=== PATIENT | male | born 1955 | race Caucasian/White ===

== ENCOUNTER → 2016-08-16 | Outpatient (CLI) | payer OTHER ==
[~2016-08-16] MED LIST: IPRA1AER2 INH; OXYC-57 PO; SYMIN160 INH
[2016-08-16 17:40] LABS: BASO % 0.8 %; BASO ABS # 0.08 K/uL (0-0.2); COMPLETE YES; EOS % 1.7 %; HEMATOCRIT 46.5 % (42-52); IG% 0.1 %; LYMPH % 29.9 %; LYMPH ABS # 3.08 K/uL (1.2-3.4); MEAN CELL VOLUME 90.6 fL (80-100); MEAN CORPUSCULAR HGB CONC 35.3 g/dl (32-36); MEAN PLATELET VOLUME 9.6 fL (7.4-10.4); MONO % 9.6 %; NEUT % 57.9 %; PLATELET COUNT 295 K/uL (130-400); RED BLOOD COUNT 5.13 M/uL (4.7-6.1); WHITE BLOOD COUNT 10.31 K/uL (4.8-10.8)
[2016-08-16 17:53] LABS: BLOOD UREA NITROGEN 12 mg/dl (7-18); BUN/CREATININE RATIO 13.6 (10-20); CALCIUM 9.8 mg/dl (8.5-10.1); CARBON DIOXIDE 22 mmol/L (21-32); CHLORIDE 106 mmol/L (98-107); CREATININE 0.91 mg/dl (0.60-1.40); GLUCOSE 79 mg/dl (70-99); POTASSIUM 4.2 mmol/L (3.5-5.1); SODIUM 140 mmol/L (136-145)
== END | disposition home or self-care (01) ==
LOC: C.LABBFT 14:38
PROVIDERS: ATTEND Nurse Practitioner
DX: R59.0 Localized enlarged lymph nodes (principal)

== ENCOUNTER → 2016-08-22 | Outpatient (CLI) | payer OTHER ==
--- NOTE | 2016-08-22 12:27 | DIAGNOSTIC IMAGING REPORT ---
ULTRASOUND SOFT TISSUES NECK CLINICAL HISTORY: Left-sided cervical lymphadenopathy. COMPARISON STUDY: No priors. FINDINGS: Real-time, grayscale, and color flow sonography of the soft tissues of the left neck is performed at the indicated site of interest. No mass or fluid collection is seen. There are scattered benign-appearing cervical lymph nodes. These not pathologically enlarged by size criteria and maintain a normal fatty hilum. The largest node measures 0.9 x 0.3 x 0.7 cm. IMPRESSION: Scattered benign-appearing left cervical lymph nodes are incidentally noted. These are not pathologically enlarged by size criteria and are too small for fine-needle aspiration. Clinical follow-up will be required. Electronically signed by: Roberto Butler M.D. 08/22/2016 12:26 PM Dictated Date/Time: 08/22/2016 12:24 PM
== END | disposition home or self-care (01) ==
LOC: C.ULTR 11:48
PROVIDERS: ATTEND Internal Medicine
DX: R59.0 Localized enlarged lymph nodes (principal)

== ENCOUNTER → 2016-11-01 | Day surgery (SDC) | payer OTHER ==
[2016-10-19 13:25] VITALS: Ht 170.2 cm; Wt 75.5 kg
[~2016-11-01] VITALS: Ht 170.2 cm; Wt 75.5 kg
[~2016-11-01] MED LIST changes: +ATROPINE SULFATE 0.1 MG/ML 5ML SYR IV PRN; +EpHEDrine SULFATE INJ 50 MG/ML AMP IV PRN; +LIDOCAINE HCL 2% 2 ML VIAL (20MG/ML) ONE; +MIDAZOLAM HCL 1 MG/ML 2ML VIAL ONE; +ONDANSETRON INJ 2 MG/ML 2 ML VIAL ONE; -OXYC-57 PO; +PROPOFOL IV EMULSION 10 MG/ML 20 ML VIAL IV ONE; +SODIUM CHLORIDE 0.9% 500ML 500 ML IV ONE
--- NOTE | 2016-11-01 14:14 | Endo History and Physical ---
History & Physical Date of Service: Nov 01, 2016. Chief Complaint: Screening colon Referring Physician: Dr. Layo Khan History of Present Illness 61 yo CM who presents for screening colonoscopy. Past Surgical History Hx Cardiac Surgery: No Hx Internal Defibrillator: No Hx Pacemaker: No Hx Abdominal Surgery: Yes (HERNIA REPAIR X2) Hx of Implantable Prosthesis: No Hx Post-Op Nausea and Vomiting: No Hx Cancer Surgery: No Hx Thoracic Surgery: No Hx Orthopedic: No Hx Urinary Tract Surgery: No Family History None Social History Smoking Status: Current Every Day Smoker Hx Substance Use: No Hx Alcohol Use: Yes (QUIT 7 YEARS AGO) Allergies Coded Allergies: Atorvastatin (Verified Allergy, Unknown, RASH, 10/19/16) Current Medications Reported Home Medications Medications Dose Route/Sig Max Daily Dose Days Date Category Combivent Respimat (Ipratropium-Albuterol) 1 Aer Aer 1 Puffs INH QID 10/19/16 Reported Symbicort 160/4.5 Inhaler (Budesonide/Formoterol Fumarate) Aero 2 Puffs INH BID 04/23/16 Reported Vital Signs Weight (Kilograms): 75.45 Height (Feet): 5 Height (Inches): 7 Date Time Temp Pulse Resp B/P Pulse Ox O2 Delivery O2 Flow Rate FiO2 11/01/16 13:58 36.7 95 20 182/90 98 Room Air Physical Exam General Appearance: WD/WN, no apparent distress Respiratory/Chest: Auscultation: breath sounds normal Cardiovascular: Heart Auscultation: RRR Abdomen: Bowel Sounds: normal Inspection & Palpation: soft, non-distended, no tenderness, guarding & rebound Assessment and Plan Assessment: 61 yo CM who presents for screening colonoscopy. Plan: Proceed with colonoscopy.
--- NOTE | 2016-11-01 15:27 | Discharge Instructions ---
Endoscopy Patient Instructions Date / Procedure(s) Performed Nov 01, 2016. Colonoscopy Allergy Information Coded Allergies: Atorvastatin (Verified Allergy, Unknown, RASH, 10/19/16) Discharge Date / Findings Nov 01, 2016. Colon polyps Rectal polyp Diverticulosis Internal hemorrhoids Medication Instructions OK to resume all medications today as prescribed Reported Home Medications Medications Dose Route/Sig Max Daily Dose Days Date Category Combivent Respimat (Ipratropium-Albuterol) 1 Aer Aer 1 Puffs INH QID 10/19/16 Reported Symbicort 160/4.5 Inhaler (Budesonide/Formoterol Fumarate) Aero 2 Puffs INH BID 04/23/16 Reported Provider Instructions Activity Restrictions - No exercising or heavy lifting for 24 hours. - Do not drink alcohol the day of the procedure. - Do not drive a car or operate machinery until the day after the procedure. - Do not make any important decisions or sign important papers in 24 hours after the procedure. Following Day: - Return to full activity which may include returning to work/school. Diet Start your diet with liquids and light foods (jello, soup, juice, toast). Then eat your usual diet if not nauseated. Treatment For Common After Affects For mild abdominal pain, bloating, or excessive gas: - Rest - Eat lightly - Lie on right side Follow-Up Information Follow-up with Dr. Layo Khan as scheduled Anesthesia Information What You Should Know You have had a procedure that required some medicine to reduce anxiety and discomfort. This treatment is called moderate sedation. After receiving the treatment, you may be sleepy, but you will be able to breathe on your own. The effects of the treatment may last for several hours. Follow these instructions along with Activity/Diet recommendations noted above: * Do NOT do anything where dizziness or clumsiness would be dangerous. * Rest quietly at home today, then you can be up and about tomorrow. * Have a responsible person stay with you the rest of today. * You may have had an I.V. today. If so, you may take the dressing off later today. Recommendations Call your doctor if: * Trouble breathing * Continuous vomiting for more than 24 hours * Temperature above 101 degrees * Severe abdominal pain or bloating * Pain not relieved by pain medicine ordered * There is increased drainage or redness from any incision * A large amount of rectal bleeding greater than 2-3 tablespoons. (If you had a polyp/s removed or have hemorrhoids, a small amount of blood - from the rectum is to be expected.) * You have any unanswered questions or concerns. IN THE EVENT OF A SERIOUS EMERGENCY, GO TO THE NEAREST EMERGENCY ROOM Your discharge instructions were prepared by provider Jarvis Centeno. Patient Instructions Signature Page Kraig Omalley Patient (or Guardian) Signature/Date: I have read and understand the instructions given to me by my caregivers. Caregiver/RN/Doctor Signature/Date: The above-named patient and/or guardian has received patient instructions on this date. + Original Patient Signature Page (only) stays with chart. Please make copy for patient.
--- NOTE | 2016-11-01 15:32 | GI REPORT ---
Procedure Date: 11/01/2016 2:30 PM Procedure: Colonoscopy Indications: Screening for colorectal malignant neoplasm Medicines: Monitored Anesthesia Care Complications: No immediate complications. Estimated Blood Loss: Estimated blood loss: none. Procedure: Pre-Anesthesia Assessment: - Prior to the procedure, a History and Physical was performed, and patient medications and allergies were reviewed. The patient's tolerance of previous anesthesia was also reviewed. The risks and benefits of the procedure and the sedation options and risks were discussed with the patient. All questions were answered, and informed consent was obtained. Prior Anticoagulants: The patient has taken no previous anticoagulant or antiplatelet agents. ASA Grade Assessment: III - A patient with severe systemic disease. After reviewing the risks and benefits, the patient was deemed in satisfactory condition to undergo the procedure. After I obtained informed consent, the scope was passed under direct vision. Throughout the procedure, the patient's blood pressure, pulse, and oxygen saturations were monitored continuously. The scope was introduced through the anus and advanced to the terminal ileum. The colonoscopy was performed without difficulty. The patient tolerated the procedure well. The quality of the bowel preparation was good. The terminal ileum, ileocecal valve, appendiceal orifice, and rectum were photographed. Findings: Five sessile polyps were found in the rectum, in the sigmoid colon and in the transverse colon. The polyps were 5 to 8 mm in size. These polyps were removed with a hot snare. Resection and retrieval were complete. Multiple small-mouthed diverticula were found in the sigmoid colon. Non-bleeding internal hemorrhoids were found during retroflexion. The hemorrhoids were small. Impression: - Five 5 to 8 mm polyps in the rectum, in the sigmoid colon and in the transverse colon, removed with a hot snare. Resected and retrieved. - Diverticulosis in the sigmoid colon. - Non-bleeding internal hemorrhoids. Recommendation: - Resume previous diet. - Continue present medications. - Repeat colonoscopy for surveillance based on pathology results. - Return to primary care physician as previously scheduled. Jarvis Centeno DO 11/01/2016 3:31:31 PM This report has been signed electronically. Note Initiated On: 11/01/2016 2:30 PM I attest to the content of the Intraoperative Record and orders documented therein, exceptions below
--- NOTE | 2016-11-01 15:43 | Anesthesiology Progress Note ---
Anesthesia Post Op Note Date & Time Nov 01, 2016 at 15:42 Vital Signs Pain Intensity: 0 Vital Signs Past 12 Hours Date Time Temp Pulse Resp B/P Pulse Ox O2 Delivery O2 Flow Rate FiO2 11/01/16 15:30 88 16 115/74 95 Room Air 11/01/16 13:58 36.7 95 20 182/90 98 Room Air Notes Mental Status: alert / awake / arousable, participated in evaluation Pt Amnestic to Procedure: Yes Nausea / Vomiting: adequately controlled Pain: adequately controlled Airway Patency, RR, SpO2: stable & adequate BP & HR: stable & adequate Hydration State: stable & adequate Anesthetic Complications: no major complications apparent
[2016-11-01 16:00] VITALS: BP 121/80; PULSE 90; O2SAT 95
== END | disposition home or self-care (01) ==
LOC: C.GI 13:41
PROVIDERS: ATTEND Internal Medicine
DX: Z12.11 Encounter for screening for malignant neoplasm of colon (principal); D12.5 Benign neoplasm of sigmoid colon; K62.1 Rectal polyp; K57.30 Diverticulosis of large intestine without perforation or abscess without bleeding; K64.8 Other hemorrhoids; Z98.890 Other specified postprocedural states; Z87.891 Personal history of nicotine dependence; Z88.8 Allergy status to other drugs, medicaments and biological substances

== ENCOUNTER → 2017-04-09 | Outpatient (CLI) | payer OTHER ==
[~2017-04-09] MED LIST changes: -ATROPINE SULFATE 0.1 MG/ML 5ML SYR IV PRN; -EpHEDrine SULFATE INJ 50 MG/ML AMP IV PRN; -LIDOCAINE HCL 2% 2 ML VIAL (20MG/ML) ONE; -MIDAZOLAM HCL 1 MG/ML 2ML VIAL ONE; -ONDANSETRON INJ 2 MG/ML 2 ML VIAL ONE; -PROPOFOL IV EMULSION 10 MG/ML 20 ML VIAL IV ONE; -SODIUM CHLORIDE 0.9% 500ML 500 ML IV ONE
[2017-04-09 18:14] LABS: CHOLESTEROL/HDL RATIO 3.8; PROSTATE SPECIFIC ANTIGEN 2.65 ng/ml (0.000-4.000)
== END | disposition home or self-care (01) ==
LOC: C.LABBFT 15:06
PROVIDERS: ATTEND Internal Medicine
DX: Z12.5 Encounter for screening for malignant neoplasm of prostate (principal); E78.5 Hyperlipidemia, unspecified

== ENCOUNTER → 2017-04-17 | Outpatient (CLI) | payer OTHER ==
--- NOTE | 2017-04-17 12:28 | DIAGNOSTIC IMAGING REPORT ---
CT LUNG SCREENING, LOW DOSE WITH COMPUTER-AIDED DETECTION (CAD) CLINICAL HISTORY: Smoking history. COMPARISON STUDY: Chest CT 12/21/2015. CT DOSE: 71.37 mGycm TECHNIQUE: Low-dose helical CT was acquired without intravenous contrast from lung apices to bases and reconstructed at 2.5 mm every 2 mm. CAD was utilized for this study. A dose lowering technique was utilized adhering to the principles of ALARA. FINDINGS: The central airways are patent. No pleural effusions. No pneumothorax. Mild to moderate emphysema persists. Mild groundglass densities within the lung bases posteriorly favor mild dependent change. No suspicious pulmonary nodules. The visualized liver and spleen are unremarkable. Partially visualized 7.2 cm hypodense lesion within the upper pole the right kidney is again noted. This favors a cyst. This is not significantly changed. No mediastinal or hilar lymphadenopathy. Normal caliber thoracic aorta. Moderate calcified plaque within the coronary arteries. IMPRESSION: 1. No suspicious pulmonary nodules. 2. Mild to moderate emphysema. 3. Moderate calcified plaque within the coronary arteries. CAD FINDINGS: Overall Lung RADS Category: 1 Lung RADS Management Recommendation: Lung-RADS 1: Continue annual screening in 12 months. Lung RADS Follow Up Date: 2018-04-17 Lung RADS Nodule ID: Electronically signed by: Lev Campos M.D. 04/17/2017 12:26 PM Dictated Date/Time: 04/17/2017 12:21 PM
== END | disposition home or self-care (01) ==
LOC: C.CTS 12:09
PROVIDERS: ATTEND Internal Medicine
DX: Z87.891 Personal history of nicotine dependence (principal); J43.9 Emphysema, unspecified; I25.10 Atherosclerotic heart disease of native coronary artery without angina pectoris

== ENCOUNTER → 2017-07-10 | Outpatient (CLI) | payer OTHER ==
--- NOTE | 2017-07-10 10:23 | DIAGNOSTIC IMAGING REPORT ---
LUMBAR SPINE MRI HISTORY: M54.16 Lumbar [id number] TECHNIQUE: Multiplanar multisequence MRI of the lumbar spine was performed without the use of contrast. COMPARISON: None. FINDINGS: For the purpose of the report the L5-S1 disc space will be located on axial image 23 of 26. Mild anterior wedging within the superior endplate of T12 with small focal area of edema within the anterior superior corner. This could related to a small Schmorl's node or small superior endplate compression fracture. No adjacent paravertebral edema. No fracture or subluxation within the lumbar spine. Moderate to space narrowing at L1-L2. Mild disc space narrowing at L3-L4. Severe disc space narrowing at L2-L3, L4-L5, and L5-S1. The conus to right at the L1 level. Mild endplate signal abnormality within the lumbar spine is likely due to the long-standing degenerative change. There is mild marrow heterogeneity which is likely age-related. Small cortical and peripelvic cysts within the right kidney. There are are also a few small peripelvic cysts within the left kidney. L1-L2: Small broad-based posterior disc bulge without significant central canal or neural foraminal narrowing. L2-L3: Small broad-based posterior disc bulge asymmetric to the left mild central canal and mild left-sided neural foraminal narrowing. L3-L4: Small broad-based posterior disc bulge without significant central canal narrowing. There is mild left-sided neural foraminal narrowing. L4-L5: No significant central canal or neural foraminal narrowing. Tiny broad-based posterior disc bulge. L5-S1: Small broad-based posterior disc bulge without significant central canal or neural foraminal narrowing. IMPRESSION: 1. Multilevel lumbar spondylosis as described above most pronounced at the L2-L3 level where there is a broad-based posterior disc bulge resulting in mild central canal and mild left-sided neural foraminal narrowing. 2. Mild superior endplate anterior wedging at T12 with a small focal area of endplate edema superiorly. This is likely due to the adjacent Schmorl's node. However, a small compression fracture could also have a similar appearance. 3. Diffuse marrow heterogeneity which may be age-related. Electronically signed by: Lev Campos M.D. 07/10/2017 10:22 AM Dictated Date/Time: 07/10/2017 10:13 AM
== END | disposition home or self-care (01) ==
LOC: C.MRI 09:29
PROVIDERS: ATTEND Internal Medicine
DX: M47.896 Other spondylosis, lumbar region (principal); M51.16 Intervertebral disc disorders with radiculopathy, lumbar region

== ENCOUNTER 2019-05-22 20:58 | Inpatient (IN) ==
[2019-05-22] MEDS ORDERED: DiphenhydrAMINE HCL 50 MG/ML VIAL IV STA (21:37)
[2019-05-22] MEDS ORDERED: SODIUM CHLORIDE 0.9% 1000ML 1,000 ML IV ONE (21:37)
[2019-05-22] MEDS ORDERED: PROCHLORPERAZINE 2 ML IV ONE (21:37)
[2019-05-22] MEDS ORDERED: ACETAMINOPHEN 1,000 MG/100 ML VIAL IV STA (21:37)
[2019-05-22] MEDS ORDERED: FAMOTIDINE 20MG IV PUSH 20 MG/5 ML SYR IV STA (21:39)
[2019-05-22 21:58] LABS: Basophils # (auto) 0.02 K/uL (0-0.2); Basophils % (auto) 0.1 %; Hematocrit (blood only) 46.4 % (42-52); Hemoglobin 16.5 g/dL (14.0-18.0); Immature Granulocytes # (auto) 0.06 K/uL (0.00-0.02); Immature Granulocytes % (auto) 0.3 %; Lymphocytes # (auto) 1.24 K/uL (1.2-3.4); Lymphocytes % (auto) 6.3 %; Mean Corpuscular Hemoglobin 32.9 pg (25-34); Mean Corpuscular Hgb Conc 35.6 g/dL (32-36); Mean Corpuscular Volume 92.6 fL (80-100); Mean Platelet Volume 9.2 fL (7.4-10.4); Monocytes # (auto) 1.94 K/uL (0.11-0.59); Monocytes % (auto) 9.9 %; Neutrophils # (auto) 16.37 K/uL (1.4-6.5); Neutrophils % (auto) 83.4 %; Platelet Count 268 K/uL (130-400); RDW Coefficient of Variation 13.3 % (11.5-14.5); RDW Standard Deviation 44.9 fL (36.4-46.3); Red Blood Count 5.01 M/uL (4.7-6.1); White Blood Count 19.63 K/uL (4.8-10.8)
[2019-05-22 22:14] LABS: Albumin Level 3.8 gm/dl (3.4-5.0); BUN Creatinine Ratio 28.1 (10-20); Calcium 9.4 mg/dl (8.5-10.1); Est GFR (African American) 64.4; Est GFR (Non-African American) 55.6; Magnesium 2.4 mg/dl (1.8-2.4); Potassium 3.9 mmol/L (3.5-5.1)
[2019-05-22 22:18] LABS: Bilirubin Direct 0.3 mg/dl (0-0.2); Bilirubin,Total 1.5 mg/dl (0.2-1); Globulin 3.6 gm/dl (2.5-4.0); Phosphorus 4.2 mg/dl (2.5-4.9); Total Protein 7.4 gm/dl (6.4-8.2)
[2019-05-22] MEDS ORDERED: IOVERSOL 100ml IV PRN (22:39)
--- NOTE | 2019-05-22 22:57 | CT Scan Report ---
CT OF THE ABDOMEN AND PELVIS WITH CONTRAST CLINICAL HISTORY: Abdominal pain, nausea and vomiting. History of inguinal hernia. COMPARISON STUDY: Abdominal ultrasound August 30, 2018. TECHNIQUE: Following IV administration of 93 mL of Optiray-320, axial images of the abdomen and pelvi s were obtained from the lung bases to the proximal femurs. Images were reviewed in the axial, sagitt al, and coronal planes. IV contrast was administered without complication. Automated exposure contro l was utilized for the study. A dose lowering technique was utilized adhering to the principles of A JAMAL. CT DOSE: 319.21 mGy.cm FINDINGS: Several hepatic cysts are noted. Note is made of bilateral renal cortical and parapelvic cy sts. There is no hydronephrosis. The spleen, adrenal glands and pancreas are unremarkable. There is n o biliary or pancreatic ductal dilatation. No peripancreatic or pericholecystic infiltration is prese nt. The proximal to mid small bowel is moderately dilated and fluid-filled. A loop of small bowel wit hin a left inguinal hernia results in a bowel obstruction. The small bowel distal to the hernia is de compressed. No pneumatosis, free air or portal venous gas is present. The appendix is normal. Extensi ve colonic diverticulosis is noted without evidence for acute diverticulitis. There are no suspicious osseous lesions. The prostate is moderately enlarged. Trace ascites within the left inguinal canal i s present. IMPRESSION: 1. Moderate grade small bowel obstruction due to a left inguinal hernia which contains a loop of smal l bowel. Trace ascites within the left inguinal canal. No pneumatosis, free air or portal venous gas. 2. Colonic diverticulosis without evidence for acute diverticulitis. 3. Renal and hepatic cysts. Electronically signed by: Andrey Pierre M.D. 05/22/2019 10:55 PM
[2019-05-22] MEDS ORDERED: PIPERACILLIN/TAZOBACTAM 4.5 GM/120 ML BAG IV ONE (23:30)
[2019-05-22] MEDS ORDERED: PIPERACILL/TAZOBAC CONSULT ACTIVE PRN (23:30)
--- NOTE | 2019-05-23 00:31 | Surgery Consultation ---
Date of Consultation May 23, 2019 Assessment & Plan (1) Vomiting: pt is a 63 year-old male who presents to ER with 2 days history nausea and vomiting, with left inguinal hernia, now the left inguinal hernia is reduced by ER attending, IMP: nausea, vomiting, left inguinal hernia caused SBO, Plan, base on high WBC 19,000, could not R/O ischemic bowel, but pt has no abdominal pain now, admit to hospital, NPO, IV fluid, repeat labs in am, D/W possible repair left inguinal hernia tomorrow, pt and his agree with the plan, I answered all questions, (2) Left inguinal hernia: History of Present Illness History of Present Illness CC: nausea, vomiting for 2 days HPI: pt is a 63 year-old male who presents to ER with 2 days history nausea and vomiting, left inguinal pain with bulging, pt has been left inguinal hernia for many years, now pt's left inguinal hernia was reduced by ER attending. pt denies fever, no abdominal pain now, last BM 2 days ago, pt had open repair right inguinal hernia 3 years ago, pt is heavy smoking, 2 packs/day, with COPD. Allergies Allergy/AdvReac Type Severity Reaction Status Date / Time atorvastatin Allergy Unknown RASH Verified 05/22/19 22:53 Home Medications Home Medications Medication Instructions Recorded Confirmed Type budesonide-formoterol HFA 160 0 puffs INHALATION BID #1 gm 05/22/19 05/22/19 History mcg-4.5 mcg/actuation aerosol inhaler ipratropium 20 mcg-albuterol 100 0 puffs INHALATION UD #4 gm 05/22/19 05/22/19 History mcg/actuation mist for inhalation rosuvastatin [Crestor] 5 mg PO DAILY 05/22/19 05/22/19 History Patient History Surgical History History of ear surgery History of inguinal hernia repair History of umbilical hernia repair incarcerated umbilical hernia repair for person over age 5 Family History Mother Breast cancer Unknown Breast cancer Brother Arthritis Father Alcohol abuse Cancer Sister Cancer Social History Feels Safe at Home: Yes Smoking Status: Current every day smoker Cigarettes Per Day: 20 ; Second Hand Exposure: Yes ; Review of Systems Review of Systems: All systems reviewed & are unremarkable except as noted in HPI & below Constitutional: as per Subjective / HPI Ear, Nose, Mouth, Throat: as per Subjective / HPI Respiratory: as per Subjective / HPI smoking, 2 packs/day, COPD Cardiovascular: as per Subjective / HPI Additional Comments: pt denies chest pain Gastrointestinal: as per Subjective / HPI Genitourinary: + as per Subjective / HPI Musculoskeletal: as per Subjective / HPI Integumentary: as per Subjective / HPI Neurologic: as per Subjective / HPI Psychiatric: as per Subjective / HPI Endocrine: as per Subjective / HPI Hematologic / Lymphatic: as per Subjective / HPI Physical Exam Constitutional: WD/WN, vitals as above well developed and well nourished ENMT: external ear and nose normal, oropharynx normal Neck: trachea midline, no thyromegaly Respiratory: normal respiratory effort, lungs clear to auscultation normal respiratory effort Cardiovascular: RRR, no murmur, no edema Rate/Rhythm: regular rate and regular rhythm Heart Sounds: normal S1 and normal S2 Gastrointestinal (Abdomen): normal bowel sounds, soft, nontender, no hepatosplenomegaly no bulging on bilt inguinal area, mild tenderness at left inguinal area, BS +, no tenderness at abdomen, no distend, no rebound pain, no rigid, Musculoskeletal: no cyanosis or clubbing, extremities motor strength 5/5 Skin: no rashes, warm and dry Neurologic: patellar DTR's 2+ bilat, sensation intact Psychiatric: A+Ox3, euthymic affect Orientation: alert and oriented x 3 Results & Data Vital Signs (Past 12 Hours) Vital Signs Temp Pulse Pulse Resp BP BP Pulse Ox 05/22/19 23:30 79 18 119/70 94 05/22/19 21:00 36.8 C 113 H 18 124/86 94 Laboratory Results Abnormal lab results 05/22/19 05/22/19 Range/Units 21:51 21:51 WBC 19.63 H (4.8-10.8) K/uL Immature Gran # (Auto) 0.06 H (0.00-0.02) K/uL Neut # (Auto) 16.37 H (1.4-6.5) K/uL Mclean # (Auto) 1.94 H (0.11-0.59) K/uL BUN 38 H (7-18) mg/dl BUN/Creatinine Ratio 28.1 H (10-20) Glucose 117 H (70-99) mg/dl Total Bilirubin 1.5 H (0.2-1) mg/dl Direct Bilirubin 0.3 H (0-0.2) mg/dl Diagnostic Findings CT lung screening (low dose) CLINICAL HISTORY: screening tobacco use. COMPARISON STUDY: Lung screening chest CT 05/02/2018. CT DOSE: 89.84 mGy.cm TECHNIQUE: Low-dose helical CT was acquired without intravenous contrast from lung apices to bases and reconstructed at 2.5 mm every 2 mm. Automated exposure control was utilized for the study. A dose lowering technique was utilized adhering to the principles of ALARA. FINDINGS: Thyroid: Imaged portions of the thyroid gland are normal in appearance. Thoracic aorta: The ascending thoracic aorta measures 38 mm. Heart: The heart is normal in size. There are mild to moderate coronary artery calcifications. Lungs and pleural spaces: There is pulmonary emphysema. There is no focal consolidation. There are no suspicious pulmonary nodules. Mediastinum: There is no mediastinal lymphadenopathy. Sena: There is no evidence of pathologic hilar adenopathy given the limitations of a noncontrast study Axilla: There is no evidence of pathologic axillary lymphadenopathy Upper abdomen: There is an 8 cm right renal cyst. Skeletal structures: There are no lytic or blastic osseous lesions. IMPRESSION: 1. Pulmonary emphysema 2. No suspicious pulmonary masses 3. Overall, no significant change compared to the prior study. CT OF THE ABDOMEN AND PELVIS WITH CONTRAST CLINICAL HISTORY: Abdominal pain, nausea and vomiting. History of inguinal hernia. COMPARISON STUDY: Abdominal ultrasound August 30, 2018. TECHNIQUE: Following IV administration of 93 mL of Optiray-320, axial images of the abdomen and pelvis were obtained from the lung bases to the proximal femurs. Images were reviewed in the axial, sagittal, and coronal planes. IV contrast was administered without complication. Automated exposure control was utilized for the study. A dose lowering technique was utilized adhering to the principles of ALARA. CT DOSE: 319.21 mGy.cm FINDINGS: Several hepatic cysts are noted. Note is made of bilateral renal cortical and parapelvic cysts. There is no hydronephrosis. The spleen, adrenal glands and pancreas are unremarkable. There is no biliary or pancreatic ductal dilatation. No peripancreatic or pericholecystic infiltration is present. The proximal to mid small bowel is moderately dilated and fluid-filled. A loop of small bowel within a left inguinal hernia results in a bowel obstruction. The small bowel distal to the hernia is decompressed. No pneumatosis, free air or portal venous gas is present. The appendix is normal. Extensive colonic diverticulosis is noted without evidence for acute diverticulitis. There are no suspicious osseous lesions. The prostate is moderately enlarged. Trace ascites within the left inguinal canal is present. IMPRESSION: 1. Moderate grade small bowel obstruction due to a left inguinal hernia which contains a loop of small bowel. Trace ascites within the left inguinal canal. No pneumatosis, free air or portal venous gas. 2. Colonic diverticulosis without evidence for acute diverticulitis. 3. Renal and hepatic cysts.
--- NOTE | 2019-05-23 00:31 | Emergency Department Note ---
Entered by Andrea Chen acting as a scribe for Loc Márquez MD History of Present Illness General Chief complaint: Illness Stated complaint: FOOD POISIONING Time Seen by Provider: 05/22/19 21:26 Source: patient and other (roommate) Limitations: no limitations History of Present Illness Onset (ago): day(s) 2 Location: abdomen Pain Consistency: + constant Maximum Pain Intensity: 10 Quality: + constant Associated symptoms: + nausea/vomiting The patient is a 63 year old male who presents to the Emergency Room with complaints of constant abdominal pain starting 2 days ago. The patient states he has been having nausea and vomiting for the past 2 days. He states he had hernia surgery on his abdomen before. The patient notes he lost 30 pounds in the past couple months. He states his doctor knows that he has lost weight but they are not sure why. The patient states he is a smoker. Home Medications Home Medications Medication Instructions Recorded Confirmed Type budesonide-formoterol HFA 160 0 puffs INHALATION BID #1 gm 05/22/19 05/22/19 History mcg-4.5 mcg/actuation aerosol inhaler ipratropium 20 mcg-albuterol 100 0 puffs INHALATION UD #4 gm 05/22/19 05/22/19 History mcg/actuation mist for inhalation rosuvastatin [Crestor] 5 mg PO DAILY 05/22/19 05/22/19 History Allergies Allergy/AdvReac Type Severity Reaction Status Date / Time atorvastatin Allergy Unknown RASH Verified 05/22/19 22:53 Past Med/Surg History Surgical History History of ear surgery History of inguinal hernia repair History of umbilical hernia repair incarcerated umbilical hernia repair for person over age 5 Family History Mother Breast cancer Unknown Breast cancer Brother Arthritis Father Alcohol abuse Cancer Sister Cancer Social History Preferred Language: Georgian Communication Ability: Effective Sprayer Operator Required: No Beliefs That Will Affect Care: None Current Living Situation: Other Current Living Situation Comment: Roommate Other Information That Helps Us Care for You: No Feels Safe at Home: Yes Safety Concerns: Feels Safe At This Time Smoking Status: Current every day smoker Tobacco Type: cigarettes ; Cigarettes Per Day: 8 ; Do You Dip or Chew Tobacco: No ; Second Hand Exposure: Yes ; Tobacco Cessation Education Requested by Patient: No Hx Alcohol Use: No Hx Substance Use: No Review of Systems See HPI for pertinent positives & negatives. and A total of 10 systems reviewed and were otherwise negative Physical Exam Vital Signs Vital Signs - 24 hr 05/22/19 21:00 05/22/19 23:30 Temperature 36.8 C Temperature Source Oral Sepsis Recent Fever Within 48 Hours No Sepsis Action Taken by Nursing No Action Required Pulse Rate 113 H Pulse Rate [Apical] 79 Pulse Rhythm Regular Pulse Strength Normal Respiratory Rate 18 18 Respiratory Effort / Characteristics Non-Labored Spontaneous Respiratory Depth Normal Respiratory Pattern Regular Blood Pressure 124/86 Blood Pressure [Right Arm] 119/70 Blood Pressure Mean 98 Blood Pressure Mean [Right Arm] 86 Blood Pressure Position Sitting Pulse Oximetry 94 94 Oxygen Delivery Method Room Air Room Air GENERAL: Awake, alert, uncomfortable-appearing, in no acute distress HENT: Normocephalic, atraumatic. Oropharynx with dry mucous membranes and otherwise unremarkable. EYES: Normal conjunctiva. Sclera non-icteric. NECK: Supple. No nuchal rigidity. FROM. No JVD. RESPIRATORY: Clear to auscultation bilaterally. CARDIAC: Regular rate, normal rhythm. Extremities warm and well perfused. Pulses equal. ABDOMEN: Soft, non-distended. No rebound or guarding. Mild periumbilical tenderness. Mild left inguinal hernia that is soft but mildly tender. RECTAL: Deferred. MUSCULOSKELETAL: Chest examination reveals no tenderness. The back is symmetrical on inspection without obvious abnormality. There is no CVA tenderness to palpation. No joint edema. LOWER EXTREMITIES: Calves are equal size bilaterally and non-tender. No edema. No discoloration. NEURO: Normal sensorium. No sensory or motor deficits noted. SKIN: No rash or jaundice noted. Course 2134: The patient was evaluated in room C12B, and a complete history and physical examination were performed. 5: I spoke with Dr. Castillo - General Surgery. He states he will come see the patient. Administered Medications Lactated Ringer's (Lr) 1,000 mls @ 100 mls/hr IV .Q10H VIDA Stop: 06/22/19 00:59 Last Admin: 05/23/19 02:13 Dose: 100 mls/hr Documented by: [id number] Ioversol (Optiray 320 100ml) 93 ml IV ONCE PRN PRN Reason: Interaction Checking Stop: 05/26/19 22:38 Last Admin: 05/22/19 22:39 Dose: 93 ml Documented by: [id number] Discontinued Medications Diphenhydramine HCl (Benadryl) 25 mg IV NOW STA Stop: 05/22/19 21:38 Last Admin: 05/22/19 21:56 Dose: 25 mg Documented by: [id number] Acetaminophen (Ofirmev) 1,000 mg in 100 mls @ 400 mls/hr IV NOW STA Stop: 05/22/19 21:51 Last Infusion: 05/22/19 22:26 Dose: 0 mls/hr Documented by: [id number] Admin: 05/22/19 21:56 Dose: 400 mls/hr Documented by: [id number] Prochlorperazine (Compazine) 2 mls @ 1 mls/min IV ONE ONE Stop: 05/22/19 21:38 Last Admin: 05/22/19 21:57 Dose: 1 mls/min Documented by: [id number] Famotidine (Pepcid 20mg Iv Push) 20 mg in 5 mls @ 2.5 mls/min IV NOW STA Stop: 05/22/19 21:40 Last Admin: 05/22/19 21:56 Dose: 2.5 mls/min Documented by: [id number] Sodium Chloride (Nss 1000ml) 1,000 mls @ 999 mls/hr IV .Q1H1M ONE Stop: 05/22/19 22:37 Last Infusion: 05/23/19 01:22 Dose: 0 mls/hr Documented by: [id number] Admin: 05/22/19 21:57 Dose: 999 mls/hr Documented by: [id number] Piperacillin Sod/Tazobactam Sod (Zosyn) 4.5 gm in 120 mls @ 240 mls/hr IV NOW ONE Stop: 05/22/19 23:59 Last Infusion: 05/23/19 01:22 Dose: 0 mls/hr Documented by: [id number] Admin: 05/22/19 23:32 Dose: 240 mls/hr Documented by: [id number] Medical Decision Making Differential Diagnosis Differential diagnoses includes but is not limited to gastritis, peptic ulcer disease, GERD, gallbladder disease, pancreatitis, small bowel obstruction, acute coronary syndrome, pericarditis, ischemic bowel, irritable bowel disease, irritable bowel syndrome, appendicitis, diverticulitis, malignancy, hernia, urinary tract infection, torsion, perforation, trauma, infectious. Medical Records Attestation: I reviewed the patient's medical records. Home Medications Current Medication List: was personally reviewed by me Laboratory Data Attestation: I reviewed the patient's lab results. Result diagrams: 05/22/19 21:51 05/22/19 21:51 Lab Results 05/22/19 05/22/19 Range/Units 21:51 21:51 WBC 19.63 H (4.8-10.8) K/uL RBC 5.01 (4.7-6.1) M/uL Hgb 16.5 (14.0-18.0) g/dL Hct 46.4 (42-52) % MCV 92.6 (80-100) fL MCH 32.9 (25-34) pg MCHC 35.6 (32-36) g/dL RDW Std Deviation 44.9 (36.4-46.3) fL RDW Coeff of Sandra 13.3 (11.5-14.5) % Plt Count 268 (130-400) K/uL MPV 9.2 (7.4-10.4) fL Immature Gran % (Auto) 0.3 % Neut % (Auto) 83.4 % Lymph % (Auto) 6.3 % Mayes % (Auto) 9.9 % Eos % (Auto) 0.0 % Baso % (Auto) 0.1 % Immature Gran # (Auto) 0.06 H (0.00-0.02) K/uL Neut # (Auto) 16.37 H (1.4-6.5) K/uL Lymph # (Auto) 1.24 (1.2-3.4) K/uL Mayes # (Auto) 1.94 H (0.11-0.59) K/uL Eos # (Auto) 0.00 (0-0.5) K/uL Baso # (Auto) 0.02 (0-0.2) K/uL Sodium 136 (136-145) mmol/L Potassium 3.9 (3.5-5.1) mmol/L Chloride 101 (98-107) mmol/L Carbon Dioxide 27 (21-32) mmol/L Anion Gap 9.0 (3-11) BUN 38 H (7-18) mg/dl Creatinine 1.34 (0.6-1.4) mg/dl Est Cr Clr Drug Dosing 51.0 ml/min Est GFR ( Amer) 64.4 Est GFR (Non-Af Amer) 55.6 BUN/Creatinine Ratio 28.1 H (10-20) Glucose 117 H (70-99) mg/dl Calcium 9.4 (8.5-10.1) mg/dl Phosphorus 4.2 (2.5-4.9) mg/dl Magnesium 2.4 (1.8-2.4) mg/dl Total Bilirubin 1.5 H (0.2-1) mg/dl Direct Bilirubin 0.3 H (0-0.2) mg/dl AST 17 (15-37) U/L ALT 20 (12-78) U/L Alkaline Phosphatase 62 (45-117) U/L Total Protein 7.4 (6.4-8.2) gm/dl Albumin 3.8 (3.4-5.0) gm/dl Globulin 3.6 (2.5-4.0) gm/dl Albumin/Globulin Ratio 1.0 (0.9-2) Lipase 81 (73-393) U/L Imaging Data Radiologist's Impression: Radiology results as stated below per my review and the radiologist's interpretation: CT OF THE ABDOMEN AND PELVIS WITH CONTRAST CLINICAL HISTORY: Abdominal pain, nausea and vomiting. History of inguinal hernia. COMPARISON STUDY: Abdominal ultrasound August 30, 2018. TECHNIQUE: Following IV administration of 93 mL of Optiray-320, axial images of the abdomen and pelvis were obtained from the lung bases to the proximal femurs. Images were reviewed in the axial, sagittal, and coronal planes. IV contrast was administered without complication. Automated exposure control was utilized for the study. A dose lowering technique was utilized adhering to the principles of ALARA. CT DOSE: 319.21 mGy.cm FINDINGS: Several hepatic cysts are noted. Note is made of bilateral renal cortical and parapelvic cysts. There is no hydronephrosis. The spleen, adrenal glands and pancreas are unremarkable. There is no biliary or pancreatic ductal dilatation. No peripancreatic or pericholecystic infiltration is present. The proximal to mid small bowel is moderately dilated and fluid-filled. A loop of small bowel within a left inguinal hernia results in a bowel obstruction. The small bowel distal to the hernia is decompressed. No pneumatosis, free air or portal venous gas is present. The appendix is normal. Extensive colonic diverticulosis is noted without evidence for acute diverticulitis. There are no suspicious osseous lesions. The prostate is moderately enlarged. Trace ascites within the left inguinal canal is present. IMPRESSION: 1. Moderate grade small bowel obstruction due to a left inguinal hernia which contains a loop of small bowel. Trace ascites within the left inguinal canal. No pneumatosis, free air or portal venous gas. 2. Colonic diverticulosis without evidence for acute diverticulitis. 3. Renal and hepatic cysts. Electronically signed by: Andrey Pierre M.D. 05/22/2019 10:55 PM Blood Pressure Blood Pressure Findings: Elevated blood pressure Blood Pressure Disposition: Referred to patients primary care provider TOMMY Narrative The patient is a pleasant 63-year-old gentleman with a past medical history of inguinal hernia repairs who presents emergency department with generalized abdominal pain with nausea and vomiting per hpi. On arrival the patient is uncomfortable but no acute distress, afebrile stable vital signs. On exam the patient has mild periumbilical tenderness without guarding or rebound. He has mild left inguinal hernia that is soft but mildly tender. WBC 19 K. H/H and platelets within normal limits. Chemistry without acidosis. Electrolytes and LFTs unremarkable. CT abdomen pelvis demonstrates likely small bowel obstruction secondary to incarcerated left inguinal hernia. I did reevaluate th e patient and did achieve reduction of left inguinal with patient in Trendelenburg position. He reports resolution of his n/v and abdominal pain. However he does still have some residual tenderness in this area. Case was discussed with general surgery, Dr. Castillo, who evaluated the patient at the [facility] and given the patient's leukocytosis he will admit the patient to the hospital for plan for hernia repair in the morning. The patient was ordered for IV Zosyn upon CT results. Impression & Plan SBO (small bowel obstruction), Inguinal hernia, Leukocytosis, Nausea & vomiting Critical Care Time Critical Care Time: Yes Total Critical Care Time: 35 I have personally spent greater than 35 minutes of critical care time in the direct management of this patient. This includes bedside care, interpretation of diagnostic studies, and testing, discussion with consultants, patient, and family members, and other required patient management activities. This 35 minutes is in excess of all separately billable procedures. Discharge Plan Visit Data *Final* Discharge Date/Time: 05/23/19 01:24 Chief Complaint: Illness Stated Complaint: FOOD POISIONING ED Provider: Loc Márquez Discharge Problem: SBO (small bowel obstruction), Inguinal hernia, Leukocytosis, Nausea & vomiting Patient Disposition: Admitted As Inpatient Discharge Instructions Interventions: ED Discharge Assessment Last Done: 05/23/19 01:24 Discharge Problem: Inguinal hernia Qualifiers: Laterality: unilateral Recurrence: recurrent The scribe's documentation has been prepared under my direction and personally reviewed by me in its entirety. I confirm that the note above accurately reflects all work, treatment, procedures, and medical decision making performed by me.
[2019-05-23] MEDS: LACTATED RINGER'S 1,000 ML IV SCH ×3 (02:13→23:06)
[2019-05-23] MEDS ORDERED: ONDANSETRON INJ 2 MG/ML 2 ML VIAL IV PRN ×2 (06:22→09:27)
[2019-05-23 07:09] LABS: Basophils # (auto) 0.03 K/uL (0-0.2); Basophils % (auto) 0.2 %; Eosinophils # (auto) 0.03 K/uL (0-0.5); Eosinophils % (auto) 0.2 %; Hematocrit (blood only) 44.7 % (42-52); Immature Granulocytes # (auto) 0.05 K/uL (0.00-0.02); Immature Granulocytes % (auto) 0.3 %; Lymphocytes # (auto) 1.65 K/uL (1.2-3.4); Mean Corpuscular Hemoglobin 33.4 pg (25-34); Mean Corpuscular Volume 93.3 fL (80-100); Mean Platelet Volume 9.1 fL (7.4-10.4); Monocytes # (auto) 1.77 K/uL (0.11-0.59); Monocytes % (auto) 10.8 %; Neutrophils # (auto) 12.91 K/uL (1.4-6.5); Neutrophils % (auto) 78.5 %; Platelet Count 261 K/uL (130-400); RDW Coefficient of Variation 13.1 % (11.5-14.5); Red Blood Count 4.79 M/uL (4.7-6.1); White Blood Count 16.44 K/uL (4.8-10.8)
[2019-05-23 07:14] LABS: Mean Corpuscular Hgb Conc 35.8 g/dL (32-36)
[2019-05-23 07:27] LABS: Albumin Level 3.4 gm/dl (3.4-5.0); BUN Creatinine Ratio 27.1 (10-20); Creatinine Clr Calc Pharmacy 66.2 ml/min; Est GFR (African American) 89.6; Est GFR (Non-African American) 77.3; Potassium 3.8 mmol/L (3.5-5.1)
[2019-05-23 07:29] LABS: Albumin Globulin Ratio 0.9 (0.9-2); Bilirubin,Total 1.5 mg/dl (0.2-1); Globulin 3.6 gm/dl (2.5-4.0)
[2019-05-23] MEDS: IPRATROPIUM BROMIDE/ALBUTEROL respimat INH INH SCH ×4 (07:42→20:15)
[2019-05-23] MEDS: BUDESONIDE/FORMOTEROL FUMARATE 160/4.5 60 PUFFS/INHALER INH SCH ×2 (07:43→20:14)
[2019-05-23] MEDS: ROSUVASTATIN CALCIUM 5 MG TAB PO SCH (07:44)
--- NOTE | 2019-05-23 07:55 | Surgery Progress Note ---
Date of Service pt started have abdominal pain this morning, pt denies fever, no diarrhea, no bloody stool, May 23, 2019 Assessment & Plan (1) Vomiting: pt is a 63 year-old male who presents to ER with 2 days history nausea and vomiting, with left inguinal hernia, now the left inguinal hernia is reduced by ER attending, IMP: nausea, vomiting, left inguinal hernia caused SBO, Plan, base on high WBC 19,000, could not R/O ischemic bowel, but pt has no abdominal pain now, admit to hospital, NPO, IV fluid, repeat labs in am, D/W possible repair left inguinal hernia tomorrow, pt and his agree with the plan, I answered all questions, 05/23/2019 7:50am possible ischemic bowel, I recommend to do diagnostic laparotomy, possible exploratory laparotomy, bowel resection,, stoma, repair left inguinal hernia with mesh, possible open, D/W benefits, risks and alternatives of the surgery, the risks- infection, bleeding, injury bowel, MN, DVT, stroke, pulmonary failure, , pt understood, he agrees with the surgery, I answered all questions, (2) Left inguinal hernia: Review of Systems Constitutional: as per Subjective / HPI Ear, Nose, Mouth, Throat: as per Subjective / HPI Respiratory: as per Subjective / HPI smoking, 2 packs/day, COPD Cardiovascular: as per Subjective / HPI Additional Comments: pt denies chest pain Gastrointestinal: as per Subjective / HPI Genitourinary: + as per Subjective / HPI Musculoskeletal: as per Subjective / HPI Integumentary: as per Subjective / HPI Neurologic: as per Subjective / HPI Psychiatric: as per Subjective / HPI Endocrine: as per Subjective / HPI Hematologic / Lymphatic: as per Subjective / HPI Physical Exam Constitutional: WD/WN, vitals as above well developed and well nourished ENMT: external ear and nose normal, oropharynx normal Neck: trachea midline, no thyromegaly Respiratory: normal respiratory effort, lungs clear to auscultation normal respiratory effort Cardiovascular: RRR, no murmur, no edema Rate/Rhythm: regular rate and regular rhythm Heart Sounds: normal S1 and normal S2 Gastrointestinal (Abdomen): some tenderness at left side abdomen, no rebound pain, no distend, BS +, no bulging on left groin area, Musculoskeletal: no cyanosis or clubbing, extremities motor strength 5/5 Skin: no rashes, warm and dry Neurologic: patellar DTR's 2+ bilat, sensation intact Psychiatric: A+Ox3, euthymic affect Orientation: alert and oriented x 3 Results & Data Vital Signs (Past 12 Hours) Vital Signs Temp Pulse Pulse Resp BP BP BP 05/23/19 07:11 36.8 C 85 18 138/83 05/23/19 01:42 36.8 C 70 15 129/67 05/22/19 23:30 79 18 119/70 05/22/19 21:00 36.8 C 113 H 18 124/86 Pulse Ox 05/23/19 07:11 91 05/23/19 01:42 93 05/22/19 23:30 94 05/22/19 21:00 94 Laboratory Results Abnormal lab results 05/22/19 05/22/19 05/23/19 Range/Units 21:51 21:51 06:57 WBC 19.63 H 16.44 H (4.8-10.8) K/uL Immature Gran # (Auto) 0.06 H 0.05 H (0.00-0.02) K/uL Neut # (Auto) 16.37 H 12.91 H (1.4-6.5) K/uL [place]ard # (Auto) 1.94 H 1.77 H (0.11-0.59) K/uL BUN 38 H (7-18) mg/dl BUN/Creatinine Ratio 28.1 H (10-20) Glucose 117 H (70-99) mg/dl Total Bilirubin 1.5 H (0.2-1) mg/dl Direct Bilirubin 0.3 H (0-0.2) mg/dl 05/23/19 Range/Units 06:57 WBC (4.8-10.8) K/uL Immature Gran # (Auto) (0.00-0.02) K/uL Neut # (Auto) (1.4-6.5) K/uL [place]ard # (Auto) (0.11-0.59) K/uL BUN 28 H (7-18) mg/dl BUN/Creatinine Ratio 27.1 H (10-20) Glucose 107 H (70-99) mg/dl Total Bilirubin 1.5 H (0.2-1) mg/dl Direct Bilirubin (0-0.2) mg/dl
--- NOTE | 2019-05-23 09:04 | Anesthesiology Consultation ---
Date of Service May 23, 2019 Assessment & Plan (1) Encounter for pre-operative examination: Chart Review Chart Review: Acceptable Risk for Surgery Consults Requested none ASA ASA3 Proposed Anesthesia Anesthesia Type: General Risk / Benefits Reviewed With: PT / POA / Parent / Guardian, Accepts Plan and Informed Consent Obtained History Surgery Operation Date: 05/23/19 14:00 Proposed Procedures p Inguinal Hernia Repair(Left) - Eric Castillo MD Height/Weight Height: 5 ft 7 in Weight: 64 kg Allergies Allergy/AdvReac Type Severity Reaction Status Date / Time atorvastatin Allergy Unknown RASH Verified 05/22/19 22:53 Medications Home Medications Medication Instructions Recorded Confirmed Last Taken budesonide-formoterol HFA 160 0 puffs INHALATION BID #1 gm 05/22/19 05/22/19 Unknown mcg-4.5 mcg/actuation aerosol inhaler ipratropium 20 mcg-albuterol 100 0 puffs INHALATION UD #4 gm 05/22/19 05/22/19 Unknown mcg/actuation mist for inhalation rosuvastatin [Crestor] 5 mg PO DAILY 05/22/19 05/22/19 Unknown Active Medications Generic Name Dose Route Start Last Admin Trade Name Freq PRN Reason Stop Dose Admin Albuterol 1 puffs 05/23/19 09:00 05/23/19 07:42 Combivent Respimat INH 06/22/19 08:59 1 puffs QID VIDA Administration Protocol Budesonide/Formoterol Fumarate 1 puffs 05/23/19 09:00 05/23/19 07:43 Symbicort 160mcg/4.5mcg INH 06/22/19 08:59 1 puffs BID VIDA Administration Protocol Lactated Ringer's 1,000 mls @ 100 mls/hr 05/23/19 01:00 05/23/19 09:36 Lr IV 06/22/19 00:59 0 mls/hr .Q10H VIDA Infusion Ioversol 93 ml 05/22/19 22:39 05/22/19 22:39 Optiray 320 100ml IV 05/26/19 22:38 93 ml ONCE PRN Administration Interaction Checking Ondansetron HCl 4 mg 05/23/19 06:22 05/23/19 06:42 Zofran IV 06/22/19 06:21 4 mg Q6H PRN Administration Nausea Rosuvastatin Calcium 5 mg 05/23/19 09:00 05/23/19 07:44 Crestor PO 06/22/19 08:59 5 mg DAILY VIDA Administration NPO Date Last Intake of Fluids: 05/23/19 Time Last Intake of Fluids: 01:35 Date Last Intake of Solids: 05/23/19 Time Last Intake of Solids: 01:35 Past Medical History Medical History Atherosclerosis of coronary artery (Acute) Chronic obstructive pulmonary disease (Acute) Hyperlipidemia (Acute) Exercise / Class Metabolic Activity II 4-5 Yardwork/Stairs/Walk up hill Past Family History Family History Mother Breast cancer Unknown Breast cancer Brother Arthritis Father Alcohol abuse Cancer Sister Cancer Past Surgical History Surgical History History of ear surgery History of inguinal hernia repair History of umbilical hernia repair incarcerated umbilical hernia repair for person over age 5 Past Anesthesia History No Hx of Anesthesia Complications and No Family Hx of Anesthesia Complications History of PONV No Hx of PONV and No Hx of Motion Sickness Social History Smoking Status: Current every day smoker tobacco type: cigarettes Smoking cigarettes per day: 8 Do You Dip or Chew Tobacco: No Hx Alcohol Use: No Hx Substance Use: No substance use type: does not use Physical Exam Vital Signs Last Vital Signs Temp 99.5 F 05/23/19 09:47 Pulse 93 H 05/23/19 09:47 Resp 16 05/23/19 09:47 BP 139/82 05/23/19 09:47 Pulse Ox 93 05/23/19 09:47 ENMT Mouth: no dentition abnormality Thyromental Distance: > or= 3.5 Finger Breadths Mallampati Class: II Neck normal visual inspection Respiratory normal respiratory effort Auscultation: lungs clear to auscultation bilaterally Cardiovascular Rate/Rhythm: regular rate and regular rhythm Testing Laboratory Results 05/23/19 06:57 05/23/19 06:57 Urine Color Yellow 05/23/19 09:35 Urine Appearance Clear (Clear) 05/23/19 09:35 Urine pH 5.0 (4.5-7.5) 05/23/19 09:35 Ur Specific [place] > 1.045 (1.000-1.030) H 05/23/19 09:35 Urine Protein Trace (Negative) H 05/23/19 09:35 Urine Glucose (UA) Negative (Negative) 05/23/19 09:35 Urine Ketones 1+ (Negative) H 05/23/19 09:35 Urine Nitrite Negative (Negative) 05/23/19 09:35 Ur Leukocyte Esterase Negative (Negative) 05/23/19 09:35 Urine WBC (Auto) 1-5 /hpf (0-5) 05/23/19 09:35 Urine RBC (Auto) 0-4 /hpf (0-4) 05/23/19 09:35 U Hyaline Cast (Auto) 10-30 /lpf (0-5) H 05/23/19 09:35 U Epithel Cells (Auto) 10-20 /lpf (0-5) H 05/23/19 09:35 Urine Bacteria (Auto) Negative (Negative) 05/23/19 09:35 Electrocardiogram Date: 05/23/19 Normal sinus rhythm, rate 66 bpm Low voltage QRS Borderline ECG When compared with ECG of 01-FEB-2016 15:40, No significant change was found
[2019-05-23] MEDS ORDERED: ONDANSETRON INJ 2 MG/ML 2 ML VIAL ONE (09:14)
[2019-05-23] MEDS ORDERED: NEOSTIGMINE METHYLSULFATE 5 MG/5 ML SYR ONE (09:14)
[2019-05-23] MEDS ORDERED: MIDAZOLAM HCL 1 MG/ML 2ML VIAL ONE (09:14)
[2019-05-23] MEDS ORDERED: DEXAMETHASONE SOD INJ 4 MG/ML VIAL ONE (09:14)
[2019-05-23] MEDS ORDERED: PROPOFOL IV EMULSION 10 MG/ML 20 ML VIAL IV ONE (09:14)
[2019-05-23] MEDS ORDERED: ePHEDrine sulfate 50 MG/ML AMP ONE (09:14)
[2019-05-23] MEDS ORDERED: fentaNYL citrate 100 MCG/2 ML VIAL ONE ×2 (09:14)
[2019-05-23] MEDS ORDERED: GLYCOPYRROLATE 0.2 MG/ML VIAL ONE (09:14)
[2019-05-23] MEDS ORDERED: LIDOCAINE HCL 2% 2 ML VIAL/AMP(20MG/ML) INFIL ONE (09:14)
[2019-05-23] MEDS ORDERED: SUCCINYLCHOLINE CHLORIDE 20 MG/ML 10 ML VIAL ONE (09:14)
[2019-05-23] MEDS ORDERED: PHENYLEPHRINE HCL 10 MG/ML VIAL ONE (09:14)
[2019-05-23] MEDS ORDERED: ePHEDrine sulfate 50 MG/ML AMP IV PRN (09:27)
[2019-05-23] MEDS ORDERED: ATROPINE SULFATE 0.1 MG/ML 10ML SYR IV PRN (09:27)
[2019-05-23] MEDS ORDERED: fentaNYL citrate 100 MCG/2 ML VIAL IV PRN (09:27)
[2019-05-23 09:52] LABS: Appearance Urine Clear (Clear); Bacteria Urine Automated Negative (Negative); Bilirubin Urine Negative (Negative); Blood Urine Negative (Negative); Color Urine Yellow; Glucose Urine UA Negative (Negative); Ketones Urine 1+ (Negative); Leukocyte Esterase Urine Negative (Negative); Nitrite Urine Negative (Negative); Protein Urine Trace (Negative); RBC Urine Automated 0-4 /hpf (0-4); Specific Gravity Urine > 1.045 (1.000-1.030); Urobilinogen Urine Negative (Negative)
--- NOTE | 2019-05-23 10:02 | History & Physical Bridge Note ---
Date of Service May 23, 2019 History & Physical Bridge Note I have examined the patient, reviewed the History & Physical and in the interval since the performance of the History & Physical I have noted the following changes of clinical significance: no changes noted
[2019-05-23] MEDS ORDERED: CEFAZOLIN 2000MG 2,000 MG/15 ML SYR IV SCH (10:03)
[2019-05-23] MEDS ORDERED: BUPIVACAINE 0.5 % 5 MG/1 ML MPF 30ML VIAL ONE (10:41)
[2019-05-23] MEDS ORDERED: LIDOCAINE HCL 1% 20 ML VIAL ONE (10:41)
[2019-05-23] MEDS ORDERED: BACITRACIN OINT 15 GM TUBE ONE (10:41)
[2019-05-23] MEDS ORDERED: ROCURONIUM BROMIDE 10 MG/ML 5 ML VIAL ONE (11:32)
[2019-05-23] MEDS ORDERED: CEFAZOLIN 250 MG/ML 1 GM VIAL ONE (11:32)
--- NOTE | 2019-05-23 11:54 | Post Operative Brief Note ---
Immediate Post Op Note v1 Date of Surgery May 23, 2019 Pre & Post Diagnosis Operation Date: 05/23/19 14:00 Pre-Op Diagnosis: incarcerated left inguinal hernia Post-Op Diagnosis: incarcerated left inguinal hernia I identified the patient and participated in the time-out.: Yes Procedure Operation Date: 05/23/19 14:00 Actual Procedures p Laparoscopic left inguinal hernia repair with mesh(Left) - Eric Castillo MD Surgeon Eric Castillo MD Emr Trainer MODESTO Rios Estimated Blood Loss 10 Findings Consistent with Post-Op Diagnosis incarcerated left inguinal hernia, caused SBO, left indirect hernia, small bowel is pink, alive Fluids 700ml Specimens none Anesthesia Type General Complications none Disposition Accompanied Patient To Recovery: Yes Disposition: Recovery Room Overlapping Procedure I was immediately available: during the entire case.
--- NOTE | 2019-05-23 12:43 | Anesthesiology Progress Note ---
Date of Service May 23, 2019 Anesthesia Post Procedure Vital Signs Vital Signs: Temp Pulse Pulse Pulse Resp BP BP 05/23/19 12:40 98 H 16 113/74 05/23/19 12:30 85 16 122/68 05/23/19 12:21 89 16 155/72 H 05/23/19 12:12 98.4 F 91 H 16 150/92 H 05/23/19 09:47 99.5 F 93 H 16 139/82 05/23/19 07:11 98.2 F 85 18 138/83 05/23/19 01:42 98.2 F 70 15 05/22/19 23:30 79 18 05/22/19 21:00 98.2 F 113 H 18 124/86 BP Pulse Ox 05/23/19 12:40 94 05/23/19 12:30 92 05/23/19 12:21 98 05/23/19 12:12 99 05/23/19 09:47 93 05/23/19 07:11 91 05/23/19 01:42 129/67 93 05/22/19 23:30 119/70 94 05/22/19 21:00 94 Transfer of Care Handoff Completed per policy Notes Mental Status: alert / awake / arousable and participated in evaluation Patient Amnestic to Procedure: Yes Nausea / Vomiting: adequately controlled Pain: adequately controlled Airway Patency, RR, SpO2: stable & adequate BP & HR: stable & adequate Hydration State: stable & adequate Anesthetic Complications: no major complications apparent and Pt Satisfied with anesthetic care
--- NOTE | 2019-05-23 12:59 | Operative Report ---
DATE OF OPERATION: 05/23/2019 PREOPERATIVE DIAGNOSIS: Incarcerated left inguinal hernia. POSTOPERATIVE DIAGNOSIS: Incarcerated left inguinal hernia. OPERATION: Laparoscopic repair of left inguinal hernia with mesh. SURGEON: Eric Castillo MD. FOUNDRY HAND: Nahed Guillen PA-C. ANESTHESIA: General. ESTIMATED BLOOD LOSS: About 10 mL. FINDINGS: Incarcerated left indirect inguinal hernia, small bowel alive. COMPLICATIONS: None. INDICATIONS FOR THE PROCEDURE: This is a 63-year-old gentleman who presented to ED with incarcerated left inguinal hernia. The hernia is reducible; however, the patient still has some abdominal pain once reduced and I recommended to do the diagnostic laparoscopy with possible bowel resection, possible exploratory laparotomy and possible laparoscopic repair of inguinal hernia with mesh, possible open repair of inguinal hernia with mesh. I did talk to the patient about the benefit, risk, alternate procedure. I indicated the risks may include but not limited to such as bleeding, infection, hernia recurrence, chronic pain, may need a bowel resection, stoma, myocardial infarction, DVT, stroke, even , pulmonary failure. The patient understands and he signed informed consent and I answered all questions. DETAILS OF PROCEDURE: We brought the patient to the OR, put the patient in the supine position. The patient received SCD on bilateral legs to prevent DVT. Also, patient received 2 grams of Ancef IV for prophylactic antibiotic. The patient received general anesthesia without difficulties. The abdomen was prepped and draped in routine sterile fashion. After timeout, I injected local anesthesia by using 1% lidocaine mixed with 0.5% Marcaine just above the umbilicus. Then, I made a small incision just above the umbilicus, opened fascia and opened peritoneum under direct vision, put a Calin trocar in, connected to CO2 to create pneumoperitoneum, flow rate is 6 liter per minute, pressure not more than 14 mmHg. Then, we put the patient in Trendelenburg position. We put the camera in and it showed the patient has incarcerated left inguinal hernia, small bowel stuck in the left inguinal hernia. So, we put another two 5 mm trocars on the right lower quadrant where we mobilized the hernia and finally we pulled back the small bowel from the hernia sac and the small bowel still alive and pink color. Then, we incised the peritoneum, used the cutter and reduced the hernia sac back to abdominal cavity and the Jhoan ligament was identified, inferior epigastric area identified, so the patient had a left indirect inguinal hernia. Cord structure was also identified. Then, we used the Endoloop to close the reversed hernia sac and then we chose medium Prolene mesh to repair the hernia. Used the 5 mm tacker to tack the mesh to the abdomen wall and the mesh seated nicely, no tension. Hemostasis was obtained. Now closed the peritoneal incision by using staple and rechecked the abdomen, no active bleeding, no injury to the bowel and the small bowel was alive. Then, we removed all trocars under direct vision. No active bleeding from the trocar sites. Pneumoperitoneum was released, now closed the umbilical incision fascial layer by using #1 Vicryl ilbeuh-ca-eoigr x2, closed subcutaneous layer by using 2-0 Vicryl interruptedly, closed skin by using 4-0 Vicryl continuous running, closed another two 5 mm trocar sites skin only by using 4-0 Vicryl, then we put the dressing on. Before the procedure, we inserted a Pace catheter and after the procedure, we removed the Pace catheter. The patient tolerated the procedure well and was transferred to recovery room in stable condition. All instrument, needle and sponge count were correct x2 at the end of the case. I attest to the content of the Intraoperative Record and any orders documented therein. Any exceptions are noted below. HANDY
[2019-05-23] MEDS: CEFAZOLIN 1000MG 1,000 MG/7.5 ML SYR IV SCH (17:02)
[2019-05-23] MEDS: OXYCODONE/ACETAMINOPHEN 5mg/325mg TAB PO PRN ×2 (17:02→23:04)
[2019-05-23] MEDS: HYDROmorphone INJ 0.5 MG/0.5 ML SYR IV PRN (20:11)
[2019-05-24] MEDS: CEFAZOLIN 1000MG 1,000 MG/7.5 ML SYR IV SCH ×3 (03:01→18:32)
[2019-05-24] MEDS: OXYCODONE/ACETAMINOPHEN 5mg/325mg TAB PO PRN ×3 (04:38→23:20)
[2019-05-24 05:52] LABS: Basophils # (auto) 0.04 K/uL (0-0.2); Basophils % (auto) 0.3 %; Eosinophils # (auto) 0.05 K/uL (0-0.5); Eosinophils % (auto) 0.4 %; Hematocrit (blood only) 40.5 % (42-52); Hemoglobin 13.7 g/dL (14.0-18.0); Immature Granulocytes # (auto) 0.03 K/uL (0.00-0.02); Immature Granulocytes % (auto) 0.2 %; Mean Corpuscular Hemoglobin 32.5 pg (25-34); Mean Corpuscular Hgb Conc 33.8 g/dL (32-36); Mean Platelet Volume 9.4 fL (7.4-10.4); Monocytes # (auto) 1.94 K/uL (0.11-0.59); Monocytes % (auto) 15.5 %; Neutrophils # (auto) 8.42 K/uL (1.4-6.5); Neutrophils % (auto) 67.6 %; Platelet Count 225 K/uL (130-400); RDW Coefficient of Variation 13.1 % (11.5-14.5); Red Blood Count 4.22 M/uL (4.7-6.1); White Blood Count 12.48 K/uL (4.8-10.8)
[2019-05-24 06:28] LABS: Albumin Level 2.9 gm/dl (3.4-5.0); BUN Creatinine Ratio 15.9 (10-20); Bilirubin,Total 1.4 mg/dl (0.2-1); Calcium 8.2 mg/dl (8.5-10.1); Creatinine Clr Calc Pharmacy 75.1 ml/min; Est GFR (African American) 104.2; Est GFR (Non-African American) 89.9; Potassium 3.9 mmol/L (3.5-5.1); Total Protein 5.9 gm/dl (6.4-8.2)
[2019-05-24] MEDS: BUDESONIDE/FORMOTEROL FUMARATE 160/4.5 60 PUFFS/INHALER INH SCH ×2 (08:35→21:42)
[2019-05-24] MEDS: ROSUVASTATIN CALCIUM 5 MG TAB PO SCH (08:35)
[2019-05-24] MEDS: IPRATROPIUM BROMIDE/ALBUTEROL respimat INH INH SCH ×4 (08:35→21:42)
--- NOTE | 2019-05-24 09:20 | Surgery Progress Note ---
Date of Service May 24, 2019 Assessment & Plan (1) Inguinal hernia: Postoperative day #1 status post repair of incarcerated left inguinal hernia laparoscopically No bowel movement as yet Pain is under good control Tolerated clear liquids and will advance diet Subjective Postoperative day #1 status post repair of left inguinal hernia Has soreness Tolerated clear liquids Denies nausea and vomiting Physical Exam Gastrointestinal (Abdomen): Inspection/Auscultation: + abdominal surgical incision (Clean, dry and intact); abdomen not distended Percussion/Palpation: + abdomen tender (Mild incisional) and abdomen soft Results & Data Vital Signs (Past 12 Hours) Vital Signs Temp Pulse Resp BP Pulse Ox 05/24/19 07:23 36.5 C 61 18 101/58 L 94 05/24/19 03:09 36.8 C 62 18 102/62 92 05/23/19 23:00 36.7 C 68 18 114/72 94 (1) Inguinal hernia Laterality: unilateral Recurrence: recurrent
[2019-05-24] MEDS: LACTATED RINGER'S 1,000 ML IV SCH (09:43)
--- NOTE | 2019-05-24 15:01 | Anesthesiology Progress Note ---
Date of Service May 24, 2019 Anesthesia Post Procedure Vital Signs Vital Signs: Temp Pulse Resp BP Pulse Ox 05/24/19 07:23 36.5 C 61 18 101/58 L 94 05/24/19 03:09 36.8 C 62 18 102/62 92 05/23/19 23:00 36.7 C 68 18 114/72 94 05/23/19 20:45 37.0 C 93 H 17 112/64 93 05/23/19 16:04 36.5 C 75 17 106/66 93 Pain Intensity Abdomen: Pain Intensity: 9 Notes Mental Status: alert / awake / arousable Patient Amnestic to Procedure: Yes Nausea / Vomiting: adequately controlled Pain: improving with treatment (pt had just recieved percocet;) Airway Patency, RR, SpO2: stable & adequate BP & HR: stable & adequate Anesthetic Complications: no major complications apparent
[2019-05-24] MEDS: HYDROmorphone INJ 0.5 MG/0.5 ML SYR IV PRN ×2 (16:03→21:45)
[2019-05-25] MEDS: CEFAZOLIN 1000MG 1,000 MG/7.5 ML SYR IV SCH ×2 (01:24→09:58)
[2019-05-25] MEDS ORDERED: BISACODYL 5 MG TABEC PO ONE ×2 (06:57→09:00)
[2019-05-25] MEDS ORDERED: POLYETHYLENE (MIRALAX) 17 GM PACK PO SCH (07:00)
[2019-05-25] MEDS: BUDESONIDE/FORMOTEROL FUMARATE 160/4.5 60 PUFFS/INHALER INH SCH (08:47)
[2019-05-25] MEDS: IPRATROPIUM BROMIDE/ALBUTEROL respimat INH INH SCH (08:48)
[2019-05-25] MEDS: ROSUVASTATIN CALCIUM 5 MG TAB PO SCH (08:48)
[2019-05-25] MEDS: OXYCODONE/ACETAMINOPHEN 5mg/325mg TAB PO PRN (08:54)
--- NOTE | 2019-05-25 09:03 | Surgery Progress Note ---
Date of Service pt is doing better, passed gas, no BM yet, no fever, no abdominal pain, no nausea, no vomiting, May 25, 2019 Assessment & Plan (1) Inguinal hernia: Postoperative day #1 status post repair of incarcerated left inguinal hernia laparoscopically No bowel movement as yet Pain is under good control Tolerated clear liquids and will advance diet 05/25/2019 9:02am doing fine, regular diet miralax. dulcolax once pt passed BM, pt can go home today, the post-op care instruction was given, F/U 1 week, s Subjective Postoperative day #1 status post repair of left inguinal hernia Has soreness Tolerated clear liquids Denies nausea and vomiting Physical Exam Constitutional: WD/WN, vitals as above well developed and well nourished ENMT: external ear and nose normal, oropharynx normal Neck: trachea midline, no thyromegaly Respiratory: normal respiratory effort, lungs clear to auscultation normal respiratory effort Cardiovascular: RRR, no murmur, no edema Rate/Rhythm: regular rate and regular rhythm Heart Sounds: normal S1 and normal S2 Gastrointestinal (Abdomen): normal bowel sounds, soft, nontender, no hepatosplenomegaly all incisions intact, no redness, no drainage, BS + Musculoskeletal: no cyanosis or clubbing, extremities motor strength 5/5 Skin: no rashes, warm and dry Neurologic: patellar DTR's 2+ bilat, sensation intact Psychiatric: A+Ox3, euthymic affect Orientation: alert and oriented x 3 Results & Data Vital Signs (Past 12 Hours) Vital Signs Temp Pulse Pulse Resp BP Pulse Ox 05/25/19 08:01 36.5 C 72 17 116/70 95 05/24/19 22:55 36.7 C 75 18 110/70 93 (1) Inguinal hernia Laterality: unilateral Recurrence: recurrent
--- NOTE | 2019-05-26 12:59 | Discharge Summary ---
Date of Service May 26, 2019 Admission HPI Per Admitting Provider HPI: pt is a 63 year-old male who presents to ER with 2 days history nausea and vomiting, left inguinal pain with bulging, pt has been left inguinal hernia for many years, now pt's left inguinal hernia was reduced by ER attending. pt denies fever, no abdominal pain now, last BM 2 days ago, pt had open repair right inguinal hernia 3 years ago, pt is heavy smoking, 2 packs/day, with COPD. Principal Diagnosis Incarcerated left inguinal hernia containing small bowel with SBO Discharge Data Allergies Allergy/AdvReac Type Severity Reaction Status Date / Time atorvastatin Allergy Unknown RASH Verified 05/22/19 22:53 Consultations 05/23/19 00:31 ED Decision to Admit Stat Procedures Performed Operation Date: 05/23/19 14:00 Actual Procedures p Laparoscopic left inguinal hernia repair(Left) - Eric Castillo MD Ordered Studies 05/22/19 21:37 CT abd pelvis IV con only Stat Hospital Course (1) Inguinal hernia: Patients left inguinal hernia was reduced in emergency department and patient was admitted to hospital for close observation given abdominal pain. He continued to have abdominal pain and therefore was taken to operating room for diagnostic laparoscopy possible open hernia repair possible laparoscopic hernia repair. Patient was found to have knuckle of small bowel incarcerated in left indirect inguinal hernia. Small bowel was reduced from hernia and did not require resection as bowel was viable. Laparoscopic left inguinal hernia with mesh was performed. Patient tolerated procedure and was transferred to recovery then to medical /surgical floor for post operative care. Diet advanced to clear liquids, PO Percocet and IV morphine prn pain. Postoperative day #1 vitals stable, passing gas but no bowel movement, pain was under good control. Diet was advanced to full liquids and encouraged to ambulate. POD # 2 tolerated full liquids. Gave bowel regimen of dulcolax and miralax and advanced to regular diet. Patient was discharged home on POD # 2 in stable condition. 05/25/2019 9:02am doing fine, regular diet miralax. dulcolax once pt passed BM, pt can go home today, the post-op care instruction was given, F/U 1 week, s Total Time Total Time Spent Total Time Spent (In Minutes): 20 Total Time Includes: Examination of the Patient, Discharge Planning and Medication Reconciliation Discharge Plan Discharge Items Patient Disposition: Home - Self-Care Reason For Visit: VOMITING,LOWER ABDOMINAL PAIN Discharge Diagnosis: S/P laparoscopic repair incarcerated left inguinal hernia with mesh Condition on Discharge: Good Activity: As commented below Lifting: No more than 25 pounds Lifting Comment: for 4 weeks Bathing: May shower/bathe in 3 days Sexual Activity: After two weeks Exercise/Sports: Rest today Driving/Machine Use: no driving while pt is taking pain medicine Non-emergency contact: Surgeon Call non-emergency contact if: you have any medication questions, your symptoms worsen, your pain is not controlled and your pain is worsening Follow-up/Referrals: Anup Khan MD [Primary Care Provider] - (follow up Dr. Castillo in 1 weeks [phone] Agree-I have documented within the medical record.) Diet: Regular Addtl Attending Provider Instructions: keep the dressing for 3 days, he can take a shower on 05/26/2019 Pending Studies at Discharge: No Stand-Alone Forms: [facility] Prevently, Opioid Pain Management, Smoking Cessation Medications and DC Order Prescriptions: New oxycodone-acetaminophen [Percocet] 5-325 mg tablet 1 tab PO Q6H PRN (Reason: pain) Qty: 14 RF: 0 Continued budesonide-formoterol 160-4.5 mcg/actuation HFA aerosol inhaler inhalation BID Qty: 1 RF: 0 ipratropium-albuterol 20-100 mcg/actuation mist inhalation UD Qty: 4 RF: 0 rosuvastatin [Crestor] 5 mg tablet 5 mg PO DAILY RF: 0 Discharge Orders: Discharge Order (Routine); Ordered 05/25/19 Ordered By: Eric Castillo Admission Data Admit Date/Time: 05/23/19 00:48 Attending Provider: Eric Castillo Admit Provider: Eric Castillo Primary Care Provider: Anup Khan Other Providers: Eric Castillo Other Interventions: Discharge Summary Assessment (RN) Last Done: 05/25/19 11:40 DC Date/Time DO NOT enter until pt leaves facility: 05/25/19 13:12
--- NOTE | 2019-05-27 03:16 | Discharge Summary ---
ADMITTING DIAGNOSIS: Incarcerated left inguinal hernia. DISCHARGE DIAGNOSIS: Incarcerated left inguinal hernia. OPERATION: Laparoscopic repair of incarcerated left inguinal hernia. SURGEON: Eric Castillo MD DETAILS OF DISCHARGE SUMMARY: This is a 63-year-old gentleman who was admitted to the hospital for incarcerated left inguinal hernia and we took the patient to the OR. We did the laparoscopy, reduced the incarcerated hernia, and repaired left inguinal hernia with mesh. The patient tolerated the procedure well. After procedure, the patient tolerated a regular diet and no significant abdominal pain. The patient passed a bowel movement. PHYSICAL EXAMINATION: VITAL SIGNS: The patient's temperature is 36.5, the heart rate is 75, respiratory rate 17, blood pressure 116/70, O2 saturation 95% on room air. GENERAL: The patient is alert, awake, oriented x3. HEENT: Within normal limitation. NEUROLOGIC: Intact. NECK: No JVD. CHEST: Bilateral lung sounds clear. HEART: Normal S1, S2. No murmur. ABDOMEN: Soft, no distention. All dressing intact. No redness, no drainage from the incision site. EXTREMITIES: No edema. The patient wanted to go home on 05/25/2019. We discharged the patient home. I gave the patient postop care instruction, the patient understands. I will follow up with the patient in 1 week.
== END 2019-05-25 13:12 | disposition home or self-care (01) | DRG 354 ==
LOC: ED 20:58 → 3N 05-23 00:48

== ENCOUNTER 2019-12-03 12:16 | Inpatient (IN) ==
[2019-12-03] MEDS ORDERED: ALBUT/IPRATROP 3MG/0.5MG NEB 3 ML VIAL NEB ONE (12:33)
[2019-12-03] MEDS ORDERED: SODIUM CHLORIDE 0.9% 500 ML IV ONE (12:33)
[2019-12-03] MEDS ORDERED: methylPREDNISolone 125 MG/2 ML VIAL IV STA (12:36)
--- NOTE | 2019-12-03 12:53 | Emergency Department Note ---
Impression & Plan Acute respiratory failure, Asthma exacerbation in COPD, Pneumonia, Shortness of breath ED Provider Note NAME: HAY OMALLEY AGE: 64 SEX: M ARRIVES VIA: Walk-In INFORMANT: Patient, ED PROVIDER(S): Loc Márquez MD CHIEF COMPLAINT: Shortness of breath PLAN: Disposition: Admit MEDICAL DECISION MAKING: The patient is a pleasant 64-year-old gentleman with a past medical history of COPD/emphysema, BPH, hyper lipidemia who presents emergency department with acute onset severe respiratory distress over the past 24 hours in the setting of his report of having worsening symptoms over the past week. The patient denies any fevers,, nausea, vomiting, diarrhea, chest pain, urinary symptoms. He reports his he feels his symptoms started after his medications were changed to Breo. He denies any travel to high risk areas or contact with individuals diagnosed with COVID-19. On arrival the patient is in severe respiratory distress with tachypnea in the upper 30s on 3 L nasal cannula, tachycardic in the 100s and hypertensive 180s/90s. On exam the patient appears clinically dry. He has diffuse wheezes with prolonged expiratory phase. He has significant accessory muscle use with tripoding. EKG demonstrates nonspecific ST abnorm alities without overt ST elevation. To the patient's respiratory failure with exam consistent with severe COPD exacerbation component patient was ordered for continuous DuoNeb, steroids and BiPAP. While patient denies any exposures to high risk areas or individuals diagnosed with COVID-19 will test today. Chest x-ray demonstrates vague perihilar increased densities that could be consistent with infectious process given the patient's acute respiratory failure. BBC, H/H and platelets within normal limits. Chemistry without acidosis. VBG unremarkable. Electrolytes and LFTs unremarkable. Lactate 1.2. Troponin negative/undetectable. BNP within normal limits. Procalcitonin <0.05, making sepsis less likely. Flu negative. Reevaluation the patient was significantly improved after his treatment with duo nebs, steroids, BiPAP. Given the patient's respiratory failure reasonable to proceed with admission. Patient is agreeable with this. Case was discussed with Dr. Omalley, [facility] hospitalist, who will evaluate the patient for admission. Triage Nursing notes reviewed and agree them. Prior medical records reviewed Vital Signs: reviewed and remarkable for tachypnea and hypertension. Differential diagnosis: Reactive airway disease, pneumonia, pneumothorax, COPD, CHF, infections, cardiac ischemia, pulmonary embolism, musculoskeletal, gastrointestinal, as well as other pathologies. ER treatment provided: See below. Diagnostics interpreted by me: ECG: Sinus rhythm, 82 bpm, no ectopy, ST abnormality, no overt ST elevation, QTc 413, QRS 88. Similar to 06-10 Cardiac Monitoring: An order for continuous cardiac monitoring was placed and demonstrated sinus rhythm, 82 bpm, no ectopy. Laboratory studies: See below Imaging studies: XR chest 1V portable CLINICAL HISTORY: 64 years-old Male presenting with SEPSIS. TECHNIQUE: Portable upright AP view of the chest was obtained. COMPARISON: 04/02/[address] from 04/22/2019. FINDINGS: Cardiomediastinal silhouette normal. Mild interstitial prominence in the perihilar region. Mild hyperinflation may be present. No other focal opacity. No large effusion or pneumothorax. No large effusion or pneumothorax. Degenerative changes of the thoracic spine. Upper abdomen normal. IMPRESSION: 1. Vague perihilar added density nonspecific though possibly suggesting reactive airways disease or viral bronchiolitis. No focal infiltrate to suggest pneumonia. 2. Hyperinflation suggests underlying emphysema. ACT 112: Negative or not required by law. Consultation(s): Case was discussed with Dr. Omalley, [facility] hospitalist, who will evaluate the patient for admission. HPI: The patient is a pleasant 64-year-old gentleman with a past medical history of COPD/emphysema, BPH, hyper lipidemia who presents emergency department with acute onset severe respiratory distress over the past 24 hours in the setting of his report of having worsening symptoms over the past week. The patient denies any fevers,, nausea, vomiting, diarrhea, chest pain, urinary symptoms. He reports his he feels his symptoms started after his medications were changed to Breo. He denies any travel to high risk areas or contact with individuals diagnosed with COVID-19. ROS: See above HPI for pertinent positives & negatives. A total of 10 systems reviewed and were otherwise negative. PAST MEDICAL HISTORY:See Below PAST SURGICAL HISTORY:See Below FAMILY HISTORY:See Below SOCIAL HISTORY:See Below HOME MEDICATIONS:See Below ALLERGIES:See Below VITALS:See Below PHYSICAL EXAMINATION: GENERAL: Awake, alert, [id number], in no distress HENT: Normocephalic, atraumatic. Oropharynx with dry mucous membranes and otherwise unremarkable. EYES: Normal conjunctiva. Sclera non-icteric. NECK: Supple. No nuchal rigidity. FROM. No JVD. RESPIRATORY: Diminished throughout with diffuse wheezes and prolonged expiratory phase. CARDIAC: Tachycardic rate, normal rhythm. Extremities warm and well perfused. Pulses equal. ABDOMEN: Soft, non-distended. No tenderness to palpation. No rebound or guarding. No masses. RECTAL: Deferred. MUSCULOSKELETAL: Chest examination reveals no tenderness. The back is symmetrical on inspection without obvious abnormality. There is no CVA tenderness to palpation. No joint edema. LOWER EXTREMITIES: Calves are equal size bilaterally and non-tender. No edema. No discoloration. NEURO: Normal sensorium. No sensory or motor deficits noted. SKIN: No rash or jaundice noted. ED COURSE: Critical Care: I have personally spent greater than 75 minutes of critical care time in the direct management of this patient. This includes bedside care, interpretation of diagnostic studies, and testing, discussion with consultants, patient, and family members, and other required patient management activities. This 75 minutes is in excess of all separately billable procedures. Loc Márquez MD Past Med/Surg History Medical History Chronic obstructive pulmonary disease (Acute) Hyperlipidemia (Acute) Surgical History History of inguinal hernia repair Right inguinal hernia repair 02/02/2016. Left laparoscopic inguinal hernia repair 05/23/2019. 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 Other Information That Helps Us Care for You: No Feels Safe at Home: Yes Safety Concerns: Feels Safe At This Time Smoking Status: Former smoker Tobacco Type: cigarettes ; Age Started Using Tobacco: 6 ; packs per day: 0.5 ; Cigarettes Per Day: 8 ; Second Hand Exposure: Yes ; Hx Alcohol Use: No Hx Substance Use: No Seatbelt Use: always Allergies Allergies Allergy/AdvReac Type Severity Reaction Status Date / Time atorvastatin Allergy Unknown RASH Verified 12/03/19 14:16 Home Meds Home Medications Medication Instructions Recorded Confirmed rosuvastatin [Crestor] 5 mg PO QAM 05/22/19 12/03/19 fluticasone furoate-vilanterol 1 puffs INH QAM 12/03/19 12/03/19 [Breo Ellipta] Previous Rx's Medication Instructions Recorded ipratropium 20 mcg-albuterol 100 1 puffs INHALATION Q6H PRN #4 gm 09/29/19 mcg/actuation mist for inhalation prednisone 10 mg tablets in a dose See Rx Instructions PO .COMPLEX 12/02/19 pack #48 ea Results & Data (ED) Vital Signs Vital Signs - 24 hr 12/03/19 12:16 12/03/19 12:19 12/03/19 12:25 Temperature 36.7 C Temperature Source Oral Pulse Rate 107 H Pulse Rate [Right Finger] Pulse Rate from SpO2 Sensor Pulse Rhythm Regular Pulse Strength Normal Respiratory Rate 36 H Respiratory Effort / Characteristics Spontaneous Spontaneous Labored Short of Breath SOB on Exertion Respiratory Depth Normal Respiratory Pattern Regular Regular Blood Pressure 184/97 H Blood Pressure Mean 126 Blood Pressure Position Sitting Pulse Oximetry 93 Oxygen Delivery Method Nasal Cannula Room Air Room Air Oxygen Flow Rate 4 4 Fraction of Inspired Oxygen Sepsis Recent Fever Within 48 Hours No Sepsis New/Unexplained Change in Mental Status No Sepsis Action Taken by Nursing No Action Required 12/03/19 12:33 12/03/19 12:42 12/03/19 12:46 Temperature Temperature Source Pulse Rate 88 90 Pulse Rate [Right Finger] Pulse Rate from SpO2 Sensor 88 90 Pulse Rhythm Pulse Strength Respiratory Rate 33 H 33 H Respiratory Effort / Characteristics Respiratory Depth Respiratory Pattern Blood Pressure 187/104 H Blood Pressure Mean 120 Blood Pressure Position Pulse Oximetry 97 98 98 Oxygen Delivery Method Nasal Cannula BiPAP BiPAP Oxygen Flow Rate 3 Fraction of Inspired Oxygen Sepsis Recent Fever Within 48 Hours Sepsis New/Unexplained Change in Mental Status Sepsis Action Taken by Nursing 12/03/19 12:49 12/03/19 12:50 12/03/19 13:00 Temperature Temperature Source Pulse Rate 78 81 85 Pulse Rate [Right Finger] 79 Pulse Rate from SpO2 Sensor 80 85 Pulse Rhythm Pulse Strength Respiratory Rate 27 H 27 H 29 H Respiratory Effort / Characteristics Spontaneous Short of Breath Respiratory Depth Respiratory Pattern Tachypnea Blood Pressure 179/112 H Blood Pressure Mean 118 Blood Pressure Position Pulse Oximetry 99 98 99 Oxygen Delivery Method BiPAP BiPAP BiPAP Oxygen Flow Rate Fraction of Inspired Oxygen 40 Sepsis Recent Fever Within 48 Hours Sepsis New/Unexplained Change in Mental Status Sepsis Action Taken by Nursing 12/03/19 13:01 12/03/19 13:10 12/03/19 13:20 Temperature Temperature Source Pulse Rate 79 77 84 Pulse Rate [Right Finger] Pulse Rate from SpO2 Sensor 81 78 84 Pulse Rhythm Pulse Strength Respiratory Rate 25 H 24 28 H Respiratory Effort / Characteristics Respiratory Depth Respiratory Pattern Blood Pressure Blood Pressure Mean Blood Pressure Position Pulse Oximetry 99 99 100 Oxygen Delivery Method BiPAP BiPAP Oxygen Flow Rate Fraction of Inspired Oxygen Sepsis Recent Fever Within 48 Hours Sepsis New/Unexplained Change in Mental Status Sepsis Action Taken by Nursing 12/03/19 13:30 12/03/19 13:40 12/03/19 13:50 Temperature Temperature Source Pulse Rate 81 86 80 Pulse Rate [Right Finger] Pulse Rate from SpO2 Sensor 81 85 79 Pulse Rhythm Pulse Strength Respiratory Rate 24 28 H 26 H Respiratory Effort / Characteristics Respiratory Depth Respiratory Pattern Blood Pressure Blood Pressure Mean Blood Pressure Position Pulse Oximetry 99 100 99 Oxygen Delivery Method BiPAP BiPAP BiPAP Oxygen Flow Rate Fraction of Inspired Oxygen Sepsis Recent Fever Within 48 Hours Sepsis New/Unexplained Change in Mental Status Sepsis Action Taken by Nursing 12/03/19 14:00 12/03/19 14:01 12/03/19 14:10 Temperature Temperature Source Pulse Rate 82 83 79 Pulse Rate [Right Finger] Pulse Rate from SpO2 Sensor 82 82 80 Pulse Rhythm Pulse Strength Respiratory Rate 24 26 H 24 Respiratory Effort / Characteristics Respiratory Depth Respiratory Pattern Blood Pressure 144/104 H Blood Pressure Mean 112 Blood Pressure Position Pulse Oximetry 100 100 100 Oxygen Delivery Method BiPAP BiPAP Oxygen Flow Rate Fraction of Inspired Oxygen Sepsis Recent Fever Within 48 Hours Sepsis New/Unexplained Change in Mental Status Sepsis Action Taken by Nursing 12/03/19 14:20 12/03/19 14:30 12/03/19 14:31 Temperature Temperature Source Pulse Rate 87 81 80 Pulse Rate [Right Finger] Pulse Rate from SpO2 Sensor 88 82 80 Pulse Rhythm Pulse Strength Respiratory Rate 24 21 23 Respiratory Effort / Characteristics Respiratory Depth Respiratory Pattern Blood Pressure 152/106 H Blood Pressure Mean 114 Blood Pressure Position Pulse Oximetry 99 99 100 Oxygen Delivery Method BiPAP BiPAP BiPAP Oxygen Flow Rate Fraction of Inspired Oxygen Sepsis Recent Fever Within 48 Hours Sepsis New/Unexplained Change in Mental Status Sepsis Action Taken by Nursing 12/03/19 14:40 12/03/19 15:00 12/03/19 15:30 Temperature Temperature Source Pulse Rate 76 86 82 Pulse Rate [Right Finger] Pulse Rate from SpO2 Sensor 75 82 80 Pulse Rhythm Pulse Strength Respiratory Rate 21 17 23 Respiratory Effort / Characteristics Respiratory Depth Respiratory Pattern Blood Pressure 136/89 139/91 Blood Pressure Mean 101 105 Blood Pressure Position Pulse Oximetry 100 100 100 Oxygen Delivery Method BiPAP BiPAP Oxygen Flow Rate Fraction of Inspired Oxygen Sepsis Recent Fever Within 48 Hours Sepsis New/Unexplained Change in Mental Status Sepsis Action Taken by Nursing 12/03/19 16:00 12/03/19 16:31 12/03/19 16:35 Temperature Temperature Source Pulse Rate 76 76 82 Pulse Rate [Right Finger] Pulse Rate from SpO2 Sensor 76 77 Pulse Rhythm Pulse Strength Respiratory Rate 18 21 19 Respiratory Effort / Characteristics Non-Labored Spontaneous Respiratory Depth Normal Respiratory Pattern Regular Blood Pressure 123/72 167/115 H Blood Pressure Mean 82 127 Blood Pressure Position Pulse Oximetry 99 99 98 Oxygen Delivery Method BiPAP BiPAP Oxygen Flow Rate Fraction of Inspired Oxygen 40 Sepsis Recent Fever Within 48 Hours Sepsis New/Unexplained Change in Mental Status Sepsis Action Taken by Nursing 12/03/19 17:01 12/03/19 17:30 12/03/19 18:00 Temperature Temperature Source Pulse Rate 77 76 75 Pulse Rate [Right Finger] Pulse Rate from SpO2 Sensor 77 76 75 Pulse Rhythm Pulse Strength Respiratory Rate 18 19 21 Respiratory Effort / Characteristics Respiratory Depth Respiratory Pattern Blood Pressure 129/88 156/84 H Blood Pressure Mean 99 95 Blood Pressure Position Pulse Oximetry 98 98 97 Oxygen Delivery Method BiPAP BiPAP Oxygen Flow Rate Fraction of Inspired Oxygen Sepsis Recent Fever Within 48 Hours Sepsis New/Unexplained Change in Mental Status Sepsis Action Taken by Nursing 12/03/19 18:01 12/03/19 18:31 12/03/19 19:00 Temperature Temperature Source Pulse Rate 80 78 78 Pulse Rate [Right Finger] Pulse Rate from SpO2 Sensor 80 79 77 Pulse Rhythm Pulse Strength Respiratory Rate 21 24 22 Respiratory Effort / Characteristics Respiratory Depth Respiratory Pattern Blood Pressure 141/90 H 128/91 146/85 H Blood Pressure Mean 105 98 94 Blood Pressure Position Pulse Oximetry 100 99 98 Oxygen Delivery Method BiPAP BiPAP Oxygen Flow Rate Fraction of Inspired Oxygen Sepsis Recent Fever Within 48 Hours Sepsis New/Unexplained Change in Mental Status Sepsis Action Taken by Nursing Laboratory Data Attestation: I reviewed the patient's lab results. Result diagrams: 12/03/19 12:47 12/03/19 12:47 Lab Results 12/03/19 12/03/19 12/03/19 Range/Units 12:47 12:47 12:47 WBC 10.39 (4.8-10.8) K/uL RBC 4.94 (4.7-6.1) M/uL Hgb 16.1 (14.0-18.0) g/dL POC Hgb (14.0-18.0) g/dl Hct 44.8 (42-52) % POC Hct (42-52) % MCV 90.7 (80-100) fL MCH 32.6 (25-34) pg MCHC 35.9 (32-36) g/dL RDW Std Deviation 43.6 (36.4-46.3) fL RDW Coeff of Sandra 13.2 (11.5-14.5) % Plt Count 281 (130-400) K/uL MPV 9.1 (7.4-10.4) fL Immature Gran % (Auto) 0.1 % Neut % (Auto) 59.2 % Lymph % (Auto) 21.8 % Charles % (Auto) 12.3 % Eos % (Auto) 5.8 % Baso % (Auto) 0.8 % Immature Gran # (Auto) 0.01 (0.00-0.02) K/uL Neut # (Auto) 6.16 (1.4-6.5) K/uL Lymph # (Auto) 2.26 (1.2-3.4) K/uL Charles # (Auto) 1.28 H (0.11-0.59) K/uL Eos # (Auto) 0.60 H (0-0.5) K/uL Baso # (Auto) 0.08 (0-0.2) K/uL PT 11.6 (9.0-12.0) Seconds INR 1.1 (0.9-1.1) APTT 29.0 (21.0-31.0) Seconds PTT Ratio 1.0 VBG pH (7.36-7.41) VBG pCO2 (38-50) mmHg VBG pO2 mmHg VBG HCO3 mmol/L VBG O2 Saturation % VBG Base Excess mEq/L Barometric Pressure mm/Hg POC Sodium (135-144) mmol/L Sodium 140 (136-145) mmol/L POC Potassium (3.3-5.0) mmol/L Potassium 3.6 (3.5-5.1) mmol/L POC Chloride (101-112) mmol/L Chloride 108 H (98-107) mmol/L Carbon Dioxide 23 (21-32) mmol/L POC Total CO2 (24-31) mmol/L Anion Gap 8.0 (3-11) POC Anion Gap (16-25) mmol/L POC BUN (7-18) mg/dl BUN 8 (7-18) mg/dl Creatinine 0.87 (0.6-1.4) mg/dl POC Creatinine (0.6-1.3) mg/dl Est Cr Clr Drug Dosing 81.9 ml/min Est GFR ( Amer) 105.0 Est GFR (Non-Af Amer) 90.6 BUN/Creatinine Ratio 9.1 L (10-20) Glucose 100 H (70-99) mg/dl POC Glucose (other) (70-99) mg/dl Lactate (0.4-2.0) mmol/L Calcium 9.1 (8.5-10.1) mg/dl POC Ioniz Calcium Omer (1.12-1.32) mmol/l Phosphorus 3.3 (2.5-4.9) mg/dl Magnesium 2.2 (1.8-2.4) mg/dl Total Bilirubin 1.4 H (0.2-1) mg/dl AST 16 (15-37) U/L ALT 21 (12-78) U/L Alkaline Phosphatase 70 (45-117) U/L Troponin I < 0.015 (0-0.045) ng/ml NT-Pro-B Natriuret Pep 87 (0-900) pg/ml Total Protein 8.3 H (6.4-8.2) gm/dl Albumin 4.2 (3.4-5.0) gm/dl Globulin 4.1 H (2.5-4.0) gm/dl Albumin/Globulin Ratio 1.0 (0.9-2) Procalcitonin (0-0.5) ng/ml Influenza Type A (PCR) (Neg) Influenza Type B (PCR) (Neg) SARS-CoV-2 RNA (RT-PCR) 12/03/19 12/03/19 12/03/19 Range/Units 12:47 12:47 12:57 WBC (4.8-10.8) K/uL RBC (4.7-6.1) M/uL Hgb (14.0-18.0) g/dL POC Hgb 16.0 (14.0-18.0) g/dl Hct (42-52) % POC Hct 47 (42-52) % MCV (80-100) fL MCH (25-34) pg MCHC (32-36) g/dL RDW Std Deviation (36.4-46.3) fL RDW Coeff of Sandra (11.5-14.5) % Plt Count (130-400) K/uL MPV (7.4-10.4) fL Immature Gran % (Auto) % Neut % (Auto) % Lymph % (Auto) % Charles % (Auto) % Eos % (Auto) % Baso % (Auto) % Immature Gran # (Auto) (0.00-0.02) K/uL Neut # (Auto) (1.4-6.5) K/uL Lymph # (Auto) (1.2-3.4) K/uL Charles # (Auto) (0.11-0.59) K/uL Eos # (Auto) (0-0.5) K/uL Baso # (Auto) (0-0.2) K/uL PT (9.0-12.0) Seconds INR (0.9-1.1) APTT (21.0-31.0) Seconds PTT Ratio VBG pH (7.36-7.41) VBG pCO2 (38-50) mmHg VBG pO2 mmHg VBG HCO3 mmol/L VBG O2 Saturation % VBG Base Excess mEq/L Barometric Pressure mm/Hg POC Sodium 142 (135-144) mmol/L Sodium (136-145) mmol/L POC Potassium 3.6 (3.3-5.0) mmol/L Potassium (3.5-5.1) mmol/L POC Chloride 107 (101-112) mmol/L Chloride (98-107) mmol/L Carbon Dioxide (21-32) mmol/L POC Total CO2 23 L (24-31) mmol/L Anion Gap (3-11) POC Anion Gap 17.0 (16-25) mmol/L POC BUN 7 (7-18) mg/dl BUN (7-18) mg/dl Creatinine (0.6-1.4) mg/dl POC Creatinine 0.7 (0.6-1.3) mg/dl Est Cr Clr Drug Dosing ml/min Est GFR ( Amer) Est GFR (Non-Af Amer) BUN/Creatinine Ratio (10-20) Glucose (70-99) mg/dl POC Glucose (other) 101 H (70-99) mg/dl Lactate (0.4-2.0) mmol/L Calcium (8.5-10.1) mg/dl POC Ioniz Calcium Omer 1.21 (1.12-1.32) mmol/l Phosphorus (2.5-4.9) mg/dl Magnesium (1.8-2.4) mg/dl Total Bilirubin (0.2-1) mg/dl AST (15-37) U/L ALT (12-78) U/L Alkaline Phosphatase (45-117) U/L Troponin I (0-0.045) ng/ml NT-Pro-B Natriuret Pep (0-900) pg/ml Total Protein (6.4-8.2) gm/dl Albumin (3.4-5.0) gm/dl Globulin (2.5-4.0) gm/dl Albumin/Globulin Ratio (0.9-2) Procalcitonin (0-0.5) ng/ml Influenza Type A (PCR) Neg for Influ A (Neg) Influenza Type B (PCR) Neg for Influ B (Neg) SARS-CoV-2 RNA (RT-PCR) Cancelled 12/03/19 12/03/19 12/03/19 Range/Units 13:34 13:34 13:34 WBC (4.8-10.8) K/uL RBC (4.7-6.1) M/uL Hgb (14.0-18.0) g/dL POC Hgb (14.0-18.0) g/dl Hct (42-52) % POC Hct (42-52) % MCV (80-100) fL MCH (25-34) pg MCHC (32-36) g/dL RDW Std Deviation (36.4-46.3) fL RDW Coeff of Sandra (11.5-14.5) % Plt Count (130-400) K/uL MPV (7.4-10.4) fL Immature Gran % (Auto) % Neut % (Auto) % Lymph % (Auto) % Charles % (Auto) % Eos % (Auto) % Baso % (Auto) % Immature Gran # (Auto) (0.00-0.02) K/uL Neut # (Auto) (1.4-6.5) K/uL Lymph # (Auto) (1.2-3.4) K/uL Charles # (Auto) (0.11-0.59) K/uL Eos # (Auto) (0-0.5) K/uL Baso # (Auto) (0-0.2) K/uL PT (9.0-12.0) Seconds INR (0.9-1.1) APTT (21.0-31.0) Seconds PTT Ratio VBG pH 7.38 (7.36-7.41) VBG pCO2 45 (38-50) mmHg VBG pO2 98 mmHg VBG HCO3 26 mmol/L VBG O2 Saturation 97.3 % VBG Base Excess 0 mEq/L Barometric Pressure 735.6 mm/Hg POC Sodium (135-144) mmol/L Sodium (136-145) mmol/L POC Potassium (3.3-5.0) mmol/L Potassium (3.5-5.1) mmol/L POC Chloride (101-112) mmol/L Chloride (98-107) mmol/L Carbon Dioxide (21-32) mmol/L POC Total CO2 (24-31) mmol/L Anion Gap (3-11) POC Anion Gap (16-25) mmol/L POC BUN (7-18) mg/dl BUN (7-18) mg/dl Creatinine (0.6-1.4) mg/dl POC Creatinine (0.6-1.3) mg/dl Est Cr Clr Drug Dosing ml/min Est GFR ( Amer) Est GFR (Non-Af Amer) BUN/Creatinine Ratio (10-20) Glucose (70-99) mg/dl POC Glucose (other) (70-99) mg/dl Lactate 1.2 (0.4-2.0) mmol/L Calcium (8.5-10.1) mg/dl POC Ioniz Calcium Omer (1.12-1.32) mmol/l Phosphorus (2.5-4.9) mg/dl Magnesium (1.8-2.4) mg/dl Total Bilirubin (0.2-1) mg/dl AST (15-37) U/L ALT (12-78) U/L Alkaline Phosphatase (45-117) U/L Troponin I (0-0.045) ng/ml NT-Pro-B Natriuret Pep (0-900) pg/ml Total Protein (6.4-8.2) gm/dl Albumin (3.4-5.0) gm/dl Globulin (2.5-4.0) gm/dl Albumin/Globulin Ratio (0.9-2) Procalcitonin < 0.05 (0-0.5) ng/ml Influenza Type A (PCR) (Neg) Influenza Type B (PCR) (Neg) SARS-CoV-2 RNA (RT-PCR) Administered Medications Discontinued Medications Albuterol (Duoneb) 12 ml NEB ONE ONE Stop: 12/03/19 12:34 Last Admin: 12/03/19 12:49 Dose: 12 ml Documented by: [id number] Sodium Chloride (Nss) 500 mls @ 999 mls/hr IV .Q31M ONE Stop: 12/03/19 13:03 Last Infusion: 12/03/19 13:23 Dose: 0 mls/hr Documented by: [id number] Admin: 12/03/19 12:45 Dose: 999 mls/hr Documented by: [id number] Doxycycline Hyclate 100 mg/ (Dextrose) 110 mls @ 50 mls/hr IV NOW STA Stop: 12/03/19 17:38 Last Infusion: 12/03/19 18:31 Dose: 0 mls/hr Documented by: [id number] Admin: 12/03/19 16:19 Dose: 50 mls/hr Documented by: [id number] Methylprednisolone (Solumedrol) 125 mg IV NOW STA Stop: 12/03/19 12:37 Last Admin: 12/03/19 12:45 Dose: 125 mg Documented by: [id number] Blood Pressure Blood Pressure Findings: Elevated blood pressure Blood Pressure Disposition: elevated BP felt to be situational Discharge Plan Visit Data Chief Complaint: Shortness of Breath/Dyspnea Stated Complaint: SOB ED Provider: Loc Márquez Discharge Problem: Acute respiratory failure, Asthma exacerbation in COPD, Pneumonia, Shortness of breath Forms Stand Alone Forms: My [facility] Prescriptions Prescriptions: No Action Combivent Respimat 20-100 mcg/actuation mist 1 puffs inhalation Q6H PRN (Reason: COPD) Qty: 4 RF: 11 prednisone 10 mg tablets,dose pack See Rx Instructions PO .COMPLEX Qty: 48 RF: 0 rosuvastatin [Crestor] 5 mg tablet 5 mg PO QAM RF: 0 Breo Ellipta 100-25 mcg/dose blister with device 1 puffs INH QAM RF: 0 Discharge Problem: Acute respiratory failure Qualifiers: Respiratory failure complication: unspecified whether with hypoxia or hypercapnia Qualified Code(s): J96.00 - Acute respiratory failure, unspecified whether with hypoxia or hypercapnia Pneumonia Qualifiers: Pneumonia type: due to unspecified organism Laterality: bilateral Lung location: unspecified part of lung Qualified Code(s): J18.9 - Pneumonia, unspecified organism
[2019-12-03 12:56] LABS: Basophils # (auto) 0.08 K/uL (0-0.2); Basophils % (auto) 0.8 %; Eosinophils % (auto) 5.8 %; Hematocrit (blood only) 44.8 % (42-52); Hemoglobin 16.1 g/dL (14.0-18.0); Immature Granulocytes # (auto) 0.01 K/uL (0.00-0.02); Immature Granulocytes % (auto) 0.1 %; Lymphocytes # (auto) 2.26 K/uL (1.2-3.4); Lymphocytes % (auto) 21.8 %; Mean Corpuscular Hemoglobin 32.6 pg (25-34); Mean Corpuscular Hgb Conc 35.9 g/dL (32-36); Mean Corpuscular Volume 90.7 fL (80-100); Mean Platelet Volume 9.1 fL (7.4-10.4); Monocytes # (auto) 1.28 K/uL (0.11-0.59); Monocytes % (auto) 12.3 %; Neutrophils # (auto) 6.16 K/uL (1.4-6.5); Neutrophils % (auto) 59.2 %; Platelet Count 281 K/uL (130-400); RDW Coefficient of Variation 13.2 % (11.5-14.5); RDW Standard Deviation 43.6 fL (36.4-46.3); Red Blood Count 4.94 M/uL (4.7-6.1); White Blood Count 10.39 K/uL (4.8-10.8)
[2019-12-03 13:09] LABS: iSTAT Creatinine 0.7 mg/dl (0.6-1.3); iSTAT Ionized Calcium 1.21 mmol/l (1.12-1.32); iSTAT Potassium 3.6 mmol/L (3.3-5.0)
[2019-12-03 13:12] LABS: INR 1.1 (0.9-1.1); Prothrombin Time 11.6 Seconds (9.0-12.0)
[2019-12-03 13:13] LABS: Alanine Aminotransferase 21 U/L (12-78); Albumin Level 4.2 gm/dl (3.4-5.0); Aspartate Aminotransferase 16 U/L (15-37); BUN Creatinine Ratio 9.1 (10-20); Blood Urea Nitrogen 8 mg/dl (7-18); Calcium 9.1 mg/dl (8.5-10.1); Carbon Dioxide 23 mmol/L (21-32); Chloride 108 mmol/L (98-107); Creatinine Clr Calc Pharmacy 81.9 ml/min; Est GFR (Non-African American) 90.6; Glucose 100 mg/dl (70-99); Magnesium 2.2 mg/dl (1.8-2.4); Potassium 3.6 mmol/L (3.5-5.1); Sodium 140 mmol/L (136-145)
[2019-12-03 13:18] LABS: Alkaline Phosphatase 70 U/L (45-117); Bilirubin,Total 1.4 mg/dl (0.2-1); Globulin 4.1 gm/dl (2.5-4.0); NT Pro B Type Natriuretic Pept 87 pg/ml (0-900); Phosphorus 3.3 mg/dl (2.5-4.9); Total Protein 8.3 gm/dl (6.4-8.2); Troponin I < 0.015 ng/ml (0-0.045)
--- NOTE | 2019-12-03 13:36 | XRay Report ---
XR chest 1V portable CLINICAL HISTORY: 64 years-old Male presenting with SEPSIS. TECHNIQUE: Portable upright AP view of the chest was obtained. COMPARISON: 04/02/[address] from 04/22/2019. FINDINGS: Cardiomediastinal silhouette normal. Mild interstitial prominence in the perihilar region. Mild hyper inflation may be present. No other focal opacity. No large effusion or pneumothorax. No large effusio n or pneumothorax. Degenerative changes of the thoracic spine. Upper abdomen normal. IMPRESSION: 1. Vague perihilar added density nonspecific though possibly suggesting reactive airways disease or viral bronchiolitis. No focal infiltrate to suggest pneumonia. 2. Hyperinflation suggests underlying emphysema. ACT 112: Negative or not required by law. Electronically signed by: Bolivar Castelan M.D. 12/03/2019 1:35 PM
[2019-12-03 13:37] LABS: Influenza A virus by PCR Neg for Influ A (Neg); Influenza B virus by PCR Neg for Influ B (Neg)
[2019-12-03 13:53] LABS: Oxygen Saturation VBG 97.3 %; pH VBG 7.38 (7.36-7.41)
[2019-12-03] MEDS ORDERED: DOXYCYCLINE HYCLATE 100 MG in DEXTROSE 5% 100 ML IV STA (15:27)
--- NOTE | 2019-12-03 17:00 | History & Physical Report ---
Date of Service December 03, 2019 Assessment & Plan (1) COPD exacerbation: Admit med tele Failed outpatient treatment with steroids. Reviewing outpatient notes, it appears this is a relatively new issue patient has been having with COPD since September. He was scheduled for PFTs next week. Will continue prednisone 40 mg po, Combivent, Breo. Breo recently replaced Symbicort for patient due to insurance and patient felt that this was when his issues started. Per outpatient notes, were considering changing from the Breo if it was not working for him. Add azithromycin COVID test pending - maintain airborne and contact precautions until resulted Titrate O2 (2) Hyperlipidemia: Continue statin (3) Elevated bilirubin: Appears chronic - bili 1.4 - 1.5 in records (4) Hyperglycemia: Blood sugar 100 - likely prednisone contributing Patient does not appear to ever have had an A1c drawn Monitor bsg on morning labs - may want to add ss if becomes more elevated (5) DVT prophylaxis: Enoxaparin, SCDs History of Present Illness Mr. Omalley presents with one week history of shortness of breath that acutely worsened today. Per outpatient notes, he discussed his sob with his outpatient provider via telephone and was given a prednisone taper pack which did not provide relief. He has never had an exacerbation like this before. He denies any sick contacts, fevers, travel or other COVID risks. He has not been going out except to the grocery store. He denies aches, chills, chest pain, palpitations, n/v/d/, dysuria, hesitancy or musculoskeletal pain or weakness. Pmhx: COPD, hearing loss, BPH Social: Lives with , smokes 2 packs per day, no alcohol, retired Primary Care Provider: Layo Khan MD Allergies Allergy/AdvReac Type Severity Reaction Status Date / Time atorvastatin Allergy Unknown RASH Verified 12/03/19 14:16 Home Medications Home Medications Medication Instructions Recorded Confirmed Type rosuvastatin [Crestor] 5 mg PO QAM 05/22/19 12/03/19 History ipratropium 20 mcg-albuterol 100 1 puffs INHALATION Q6H PRN #4 gm 09/29/19 12/03/19 Rx mcg/actuation mist for inhalation prednisone 10 mg tablets in a dose See Rx Instructions PO .COMPLEX 12/02/19 12/03/19 Rx pack #48 ea fluticasone furoate-vilanterol 1 puffs INH QAM 12/03/19 12/03/19 History [Breo Ellipta] Past Med/Surg History Medical History (Updated 12/03/19 @ 17:03 by FAUSTINO Najera) Chronic obstructive pulmonary disease (Acute) Hyperlipidemia (Acute) Surgical History (Updated 09/29/19 @ 13:03 by Anup Khan MD) History of inguinal hernia repair Right inguinal hernia repair 02/02/2016. Left laparoscopic inguinal hernia repair 05/23/2019. History of umbilical hernia repair incarcerated umbilical hernia repair for person over age 5 Family History Mother Breast cancer Unknown Breast cancer Brother Arthritis Cancer Father Alcohol abuse Cancer Sister Cancer Patient believes 1 sister had cervical cancer Social History (Updated 09/29/19 @ 13:00 by Anup Khan MD) Preferred Language: Italian Communication Ability: Effective Medical Laboratory Technologist Required: No Beliefs That Will Affect Care: None marital status: Single Current Living Situation: Other Current Living Situation Comment: Roommate current occupational status: retired 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 Other Information That Helps Us Care for You: No Feels Safe at Home: Yes Safety Concerns: Feels Safe At This Time Smoking Status: Former smoker Tobacco Type: cigarettes ; Age Started Using Tobacco: 6 ; packs per day: 0.5 ; Cigarettes Per Day: 8 ; Second Hand Exposure: Yes ; Hx Alcohol Use: No Hx Substance Use: No Seatbelt Use: always Review of Systems Review of Systems: All systems reviewed & are unremarkable except as noted in HPI & below Physical Exam Physical Exam: General: no distress Eyes: normal inspection, PERLL Respiratory: chest non tender, expiratory wheezes throughout, no respiratory distress, no accessory muscle use Cardiac: regular rate and rhythm, no rub or gallop, no murmur, no edema, no jvd GI/: active bowel sounds, no abd pain or tenderness, soft, non distended Extremities: normal range of motion, normal strength, non tender Neuro:oriented x 3, moves all extremities Psych: alert, normal mood and affect Skin: normal color, dry Results & Data Results & Data ([facility]) Vital Signs (Past 12 Hours) Vital Signs Temp Pulse Pulse Resp BP Pulse Ox 12/03/19 16:35 82 19 98 12/03/19 16:00 76 18 123/72 99 12/03/19 15:30 82 23 139/91 100 12/03/19 15:00 86 17 136/89 100 12/03/19 14:40 76 21 100 12/03/19 14:31 80 23 100 12/03/19 14:30 81 21 152/106 H 99 12/03/19 14:20 87 24 99 12/03/19 14:10 79 24 100 12/03/19 14:01 83 26 H 100 12/03/19 14:00 82 24 144/104 H 100 12/03/19 13:50 80 26 H 99 12/03/19 13:40 86 28 H 100 12/03/19 13:30 81 24 99 12/03/19 13:20 84 28 H 100 12/03/19 13:10 77 24 99 12/03/19 13:01 79 25 H 99 12/03/19 13:00 85 29 H 179/112 H 99 12/03/19 12:50 81 27 H 98 12/03/19 12:49 78 79 27 H 99 12/03/19 12:46 90 33 H 187/104 H 98 12/03/19 12:42 88 33 H 98 12/03/19 12:33 97 12/03/19 12:19 36.7 C 107 H 36 H 184/97 H 93 Code Status & VTE Plan Code Status full code VTE Prophylaxis Plan VTE Prophylaxis will be ordered: Yes Supervising Physician Co-Signing Physician Notes I supervised Allison Serrano NP on this patient's care. I examined the patient today independently of her. I discussed the plan of care with her with the plan being as written in her note except for any following changes/exceptions: None. Patient is in less distress at this time compared to the presentation noted by the ED attending. Given our concern for Covid, we will attempt to avoid further NIPPV and nebulizers if able. However, it does sound like his breathing issues are relatively novel and possibly this is his first COPD exacerbation. - Will treat with standard of care COPD exacerbation -> Steroids, antibiotics, breathing treatments (inhalers), and O2 PG Care Time/CCT Total # of Minutes Spent Total Time Spent with Patient: Total time spent is greater than 50% in coordination of care (as documented) at patient's floor/unit and/or counseling patient: Coding Level of Care Code 54573 Initial Inpt Care Lvl 3 Diagnoses COPD exacerbation J44.1 Hyperlipidemia E78.5 Elevated bilirubin R17 Hyperglycemia R73.9 DVT prophylaxis Z29.9
[2019-12-03] MEDS ORDERED: ALBUTEROL HFA 8 GM INHALER INH PRN (20:42)
[2019-12-03] MEDS ORDERED: ACETAMINOPHEN 325 MG TAB PO PRN (20:42)
[2019-12-03] MEDS ORDERED: IPRATROPIUM BROMIDE HFA INHALER INH PRN (20:58)
[2019-12-03] MEDS ORDERED: ENOXAPARIN INJ 40 MG/0.4 ML SYR SQ SCH (21:00)
--- NOTE | 2019-12-04 06:13 | Electrocardiogram Report ---
Test Reason : Blood Pressure : / mmHG Vent. Rate : 082 BPM Atrial Rate : 082 BPM P-R Int : 152 ms QRS Dur : 088 ms QT Int : 354 ms P-R-T Axes : 086 -25 051 degrees QTc Int : 413 ms Poor data quality, interpretation may be adversely affected Normal sinus rhythm When compared with ECG of 23-MAY-2019 00:57, T wave amplitude has increased in Anterolateral leads Confirmed by Ignacio Friend ([id number]) on 12/04/2019 6:13:33 AM Referred By: Confirmed By:Ignacio Friend
[2019-12-04] MEDS ORDERED: ROSUVASTATIN CALCIUM 5 MG TAB PO SCH (08:00)
[2019-12-04] MEDS ORDERED: AZITHROMYCIN 250 MG TAB PO SCH (08:00)
[2019-12-04] MEDS ORDERED: predniSONE 20 MG TAB PO SCH (08:00)
--- NOTE | 2019-12-04 08:18 | Hospitalist Progress Note ---
Date of Service December 04, 2019 Assessment & Plan (1) COPD exacerbation: Admit med tele Failed outpatient treatment with steroids. Reviewing outpatient notes, it appears this is a relatively new issue patient has been having with COPD since September. He was scheduled for PFTs next week. Will continue prednisone 40 mg po, Combivent, Breo. Breo recently replaced Symbicort for patient due to insurance and patient felt that this was when his issues started. Per outpatient notes, were considering changing from the Breo if it was not working for him. Add azithromycin COVID test pending - maintain airborne and contact precautions until resulted Titrate O2 (2) Acute respiratory failure: Present on Admission?: Yes (3) Hyperlipidemia: Continue statin (4) Elevated bilirubin: Appears chronic - bili 1.4 - 1.5 in records (5) Hyperglycemia: Blood sugar 100 - likely prednisone contributing Patient does not appear to ever have had an A1c drawn Monitor bsg on morning labs - may want to add ss if becomes more elevated (6) DVT prophylaxis: Enoxaparin, SCDs Admission and Anticipated Discharge Date Admission Date: December 03, 2019 Results & Data Results & Data ([facility]) Vital Signs (Past 12 Hours) Vital Signs Temp Pulse Pulse Resp BP Pulse Ox 12/04/19 07:00 68 12/04/19 03:24 36.7 C 64 20 113/71 94 12/03/19 23:39 77 12/03/19 23:05 36.4 C L 73 20 114/69 97 12/03/19 20:59 90 12/03/19 20:44 36.7 C 73 22 132/84 95 PG Care Time/CCT Total # of Minutes Spent Total Time Spent with Patient: Total time spent is greater than 50% in coord ination of care (as documented) at patient's floor/unit and/or counseling patient: Coding Diagnoses COPD exacerbation J44.1 Acute respiratory failure J96.00 Hyperlipidemia E78.5 Elevated bilirubin R17 Hyperglycemia R73.9 DVT prophylaxis Z29.9
[2019-12-04] MEDS ORDERED: FLUTICASONE/VILANTEROL 100/25MCG 14 PUFFS/INHALER INH SCH (09:00)
--- NOTE | 2019-12-04 14:05 | Discharge Summary ---
Date of Service December 04, 2019 Principal Diagnosis COPD exacerbaton Discharge Exam Constitutional WD/WN, vitals as above Respiratory normal respiratory effort, lungs clear to auscultation Cardiovascular RRR, no murmur, no edema Gastrointestinal (Abdomen) Inspection/Auscultation: abdomen normal to inspection, + abdomen distended and normal bowel sounds Percussion/Palpation: + abdomen tender and abdomen soft Musculoskeletal no cyanosis or clubbing, extremities motor strength 5/5 Skin no rashes, warm and dry Neurologic moves all extremities and awake Psychiatric A+Ox3, euthymic affect Discharge Data Allergies Allergy/AdvReac Type Severity Reaction Status Date / Time atorvastatin Allergy Unknown RASH Verified 12/03/19 14:16 Consultations 12/03/19 15:26 ED Decision to Admit Stat Hospital Course (1) COPD exacerbation: Now on RA, no wheezing, feeling good and ready to go home Reviewing outpatient notes, it appears this is a relatively new issue patient has been having with COPD since September. He was scheduled for PFTs next week. Given steroids inpatient, Start prednisone pack prescribed by pcp after discharge Azithromycin x5 days COVID test negative (2) Acute respiratory failure: (3) Hyperlipidemia: Continue statin (4) Elevated bilirubin: Appears chronic - bili 1.4 - 1.5 in records, asymptomatic (5) Hyperglycemia: Blood sugar 100 - likely prednisone contributing Patient does not appear to ever have had an A1c drawn (6) Tobacco abuse: Discussed importance of smoking cessation and patient says he is ready to quit. Has not had a cigarette in 1 week at this point. (7) DVT prophylaxis: Enoxaparin, SCDs Total Time Total Time Spent Total Time Spent (In Minutes): greater than 30 minutes Discharge Plan Discharge Items Patient Disposition: Home - Self-Care Reason For Visit: COPD EXACERBATION Discharge Diagnosis: COPD exacerbation Activity: Resume your previous activity Non-emergency contact: Primary Care Provider Call non-emergency contact if: you have any medication questions and your symptoms worsen Follow-up/Referrals: Anup Khan MD [Primary Care Provider] - Diet: Heart Healthy Addtl Attending Provider Instructions: You were admitted for a COPD exacerbation which has improved. Please complete the steroid pack prescribed by your primary care provider which [facility] still has stocked. I will also have you take four more days of azithromycin. Please continue your inhalers and keep your upcoming appointment to have pulmonary function testing performed. Your COVID-19 test was negative. Smoking cessation is very important to the health of your lungs. Please talk to your provider if you are having difficulty quitting. Pending Studies at Discharge: No Stand-Alone Forms: My [facility], Smoking Cessation Medications and DC Order Prescriptions: New azithromycin 250 mg tablet 250 mg PO DAILY 4 Days Qty: 4 RF: 0 Continued Combivent Respimat 20-100 mcg/actuation mist 1 puffs inhalation Q6H PRN (Reason: COPD) Qty: 4 RF: 11 prednisone 10 mg tablets,dose pack See Rx Instructions PO .COMPLEX Qty: 48 RF: 0 rosuvastatin [Crestor] 5 mg tablet 5 mg PO QAM RF: 0 Breo Ellipta 100-25 mcg/dose blister with device 1 puffs INH QAM RF: 0 Discharge Orders: Discharge Order (Routine); Ordered 12/04/19 Ordered By: Allison Serrano Admission Data Admit Date/Time: 12/03/19 16:49 Attending Provider: Oneil Omalley Admit Provider: Oneil Omalley Primary Care Provider: Anup Khan Other Providers: Oneil Omalley Other Interventions: Discharge Summary Assessment (RN) Last Done: 12/04/19 14:14 Supervising Physician Co-Signing Physician Notes I supervised Allison Serrano NP on this patient's care. I examined the patient today independently of her. I discussed the plan of care with her with the plan being as written in her note except for any following changes/exceptions: None. He feels well today. No more wheezing. Excited to go home. Coding Level of Care Code D/C Day Management >30 mins Diagnoses COPD exacerbation J44.1 Acute respiratory failure J96.00 Hyperlipidemia E78.5 Elevated bilirubin R17 Hyperglycemia R73.9 Tobacco abuse Z72.0 DVT prophylaxis Z29.9
== END 2019-12-04 16:20 | disposition home or self-care (01) | DRG 190 ==
LOC: ED 12:16 → 2N 16:49

== ENCOUNTER 2020-10-10 21:56 | Inpatient (IN) ==
[2020-10-10] MEDS ORDERED: MAGNESIUM SULFATE / D5W 1 GM/100 ML BAG IV STA (22:18)
[2020-10-10] MEDS ORDERED: ALBUT/IPRATROP 3MG/0.5MG NEB 3 ML VIAL NEB ONE (22:18)
[2020-10-10] MEDS ORDERED: methylPREDNISolone 125 MG/2 ML VIAL IV STA (22:18)
--- NOTE | 2020-10-10 22:31 | Emergency Department Note ---
Impression & Plan Acute respiratory failure, COPD with emphysema ED Provider Note NAME: HAY UNDERWOOD AGE: 65 SEX: M : 1955 ARRIVES VIA: Walk-In INFORMANT: Patient, ED PROVIDER(S): Gabe Claire MD CHIEF COMPLAINT: Shortness of breath HPI: This is a 65-year-old male who presents emergency department complaining of extreme shortness of breath. The patient reports he began becoming short of breath approximately 3 days ago. He reports any exertion makes the shortness of breath worse however rest makes it better. He denies any fevers or chills or recent exposure to the virus. He has taken an inhaler at home for the shortness of breath without relief of his symptoms. ROS: See above HPI for pertinent positives & negatives. A total of 10 systems reviewed and were otherwise negative. PAST MEDICAL HISTORY: See Below PAST SURGICAL HISTORY: See Below FAMILY HISTORY: See Below SOCIAL HISTORY: See Below HOME MEDICATIONS: See Below ALLERGIES: See Below VITALS: See Below PHYSICAL EXAMINATION: VITAL SIGNS - Vital signs and nursing notes were reviewed. GENERAL - 65-year-old male appearing stated age who is moderate distress. tripoding, gasping for air SKIN - Without rashes. HEAD - NC/AT. EYES - PERRL with EOMI bilaterally. Sclera anicteric. Palpebral conjunctiva pink and moist with no injection noted. EARS - No deformities of external structures noted on gross examination tatianna aterally. NOSE - Midline and without cyanosis. No epistaxis or purulent drainage noted. Septum midline without deviation or septal hematoma noted. MOUTH/OROPHARYNX - Without perioral cyanosis. Buccal mucosa pink and moist and without leukoplakia. Tongue midline with equal elevation of palate bilaterally. No tonsillar hypertrophy, erythema, or exudates noted. dentition noted. NECK - Neck with FROM. Supple to palpation. [] lymphadenopathy noted. No nuchal rigidity. LUNGS - Chest wall symmetric without accessory muscle use, intercostals retractions, or central cyanosis. Normal vesicular breath sounds CTA B/L. No wheezes, rales, or rhonchi appreciated. CARDIAC - RRR with S1/S2. No murmur, rubs, or gallops appreciated. ABDOMEN - Abdominal contour [] without pulsations or visible masses. BS normoactive all four quadrants. No tenderness, palpable masses, hepatosplenomegaly, or ascites noted. EXTREMITIES - No clubbing or peripheral cyanosis. No pretibial edema present. +3/5 radial, posterior tibial, and dorsalis pedis pulses palpated throughout. +5/5 strength noted in UE/LE bilaterally. NEUROLOGIC - Cranial nerves II through XII grossly intact. Sensory intact to light touch throughout. Patellar reflexes +2/4. PSYCH - A&Ox3 and cooperates fully with examiner. Pt is very pleasant and interacts well with examiner. MEDICAL DECISION MAKING: Patient was seen and evaluated as above in room B11. Review was performed of nursing notes and vital signs. I did review pertinent previous visits and patient history. After obtaining a thorough history and physical examination the above work up was performed. This 65-year-old male who presents emergency department complaining of shortness of breath. The patient appears to be in acute distress and is tripoding. Therefore he was placed on BiPAP given Solu-Medrol and magnesium. He was given an hour-long breathing treatment. EKG does not show any evidence of ischemia. As the patient is continue to require oxygen I did discuss the case with the hospitalist service who did agree to admit the patient. He does have a slight elevation in his white blood cell count his troponin is negative An order was placed for continuous cardiac monitoring. The monitor shows a rate of 95 with Normal SInus rhythm. The patient was evaluated during a period of high volume and high acuity during the global COVID-19 pandemic, and that diagnosis was suspected/considered upon their initial presentation. Their evaluation, treatment and testing was consistent with current guidelines for patients who present with complaints or symptoms that may be related to COVID-19. Patient was seen while provider was wearing PPE. Triage Nursing notes reviewed. Prior medical records reviewed Vital Signs: reviewed and remarkable for no significant abnormalities Differential diagnosis: Reactive airway disease, pneumonia, pneumothorax, COPD, CHF, infections, cardiac ischemia, pulmonary embolism, musculoskeletal, gastrointestinal, as well as other pathologies. ER treatment provided: See below Diagnostics interpreted by me: ECG: EKG shows sinus tachycardia with first-degree AV block with occasional PVC junctional ST depression QTC is 432 ventricular rate is 102 there is no significant change compared to December 03, 2019. Laboratory studies: As stated above and show below. Imaging studies: [facility], [phone] XRay Report Patient: HAY UNDERWOOD IAdmit Date: 10/10/20#: [id number]: [id number] [facility]ENTERAcct ID:[id number]: [address]Birth Date: [address] [place] [address] Zip: [place], [place] [address]Gyt: 65Location: 2NSex: MRoom/Bed: Y910-1Pwe Phy: Albin Wright M.D.Diagnosis: COPD EXACERBATIONPri Phy: Layo Khan MDService Date: 10/10/20Fa Phy:Interpreting Phy: Chun Rowley MDAdmit Phy: Albin Wright M.D. Ordering Phy: Gabe Claire MD cc: ~ XR chest 1V portable CLINICAL HISTORY: Atypical chest pain COMPARISON STUDY: 12/03/2019 FINDINGS: The cardiac and mediastinal contours remain stable. There is no failure. There is no focal pulmonary consolidation. There are no pleural effusions. A subcentimeter rounded opacity towards the right lung base likely represents a nipple shadow. There is pulmonary emphysema.[ IMPRESSION: 1. Pulmonary emphysema 2. No active disease in the chest. ACT 112: Negative or not required by law. Electronically signed by: Chun Rowley M.D. 10/11/2020 6:55 AM Dictated: 10/11/20653Transcribed: 10/11/20653 Consultation(s): [none] ED COURSE: Procedures: none PDMP:reviewed and no issues Critical Care: I have personally spent greater than 30 minutes of critical care time in the direct management of this patient. This includes bedside care, interpretation of diagnostic studies, and testing, discussion with consultants, patient, and family members, and other required patient management activities. This 30 minutes is in excess of all separately billable procedures. Past Med/Surg History Medical History Arthritis Chronic obstructive pulmonary disease Hearing deficit Hyperlipidemia Scoliosis Surgical History History of colonoscopy History of ear surgery RT/LEFT EAR SURGERY A CHILD History of incisional hernia repair (03/15/20) Laparoscopic Repair of Incarcerated Incisional Hernia with SurgiMesh, Lysis of Adhesions(Not Applicable) - Roland Higuera MD 03/15/20 History of inguinal hernia repair Right inguinal hernia repair 02/02/2016. Left laparoscopic inguinal hernia repair 05/23/2019. History of umbilical hernia repair incarcerated umbilical hernia repair for person over age 5 Family History Mother Breast cancer Unknown Breast cancer Brother Arthritis Cancer Father Alcohol abuse Cancer Sister Cancer Patient believes 1 sister had cervical cancer Denies family history of Ovarian cancer Prostate cancer Myocardial infarction Colorectal cancer Social History Smoking Status: Former smoker Age Started Using Tobacco: 6; Age Quit Using Tobacco: 64; packs per day: 0.5; Second Hand Exposure: No; Hx Alcohol Use: No Hx Substance Use: No Preferred Language: Kazakh Communication Ability: Effective Visual Impairment: Limited Hearing Ability: Hard of Hearing Security Operations Specialist Required: No Beliefs That Will Affect Care: None marital status: Single Current Living Situation: Other Current Living Situation Comment: marisabel current occupational status: retired 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 How many Children do You have: 4 Feels Safe at Home: Yes Childhood Exposure to Second-Hand Smoke: Yes caffeine: Yes (coffee) Dental Care, Regularly: No Physical Activity Frequency: Daily Physical Activity Frequency Comment: walk Seatbelt Use: never Sunscreen Use: No Assistive Devices: Oxygen - Continuous Allergies Allergies Allergy/AdvReac Type Severity Reaction Status Date / Time atorvastatin Allergy Mild RASH Verified 10/10/20 23:14 Home Meds Home Medications Medication Instructions Recorded Confirmed doxazosin 1 mg PO QAM 08/30/20 10/10/20 Previous Rx's Medication Instructions Recorded triamcinolone acetonide 0.1 % 1 applic TOPICAL DAILY #30 g 05/13/20 topical cream albuterol sulfate 90 mcg/actuation 2 puff INHALATION Q6H PRN #18 g 05/16/20 aerosol inhaler rosuvastatin 5 mg tablet 5 mg PO QAM #30 tab 08/23/20 clotrimazole-betamethasone 1 1 applic TOPICAL BID 14 Days #45 g 09/26/20 %-0.05 % topical cream fluticasone furoate 100 1 inh INH QAM #60 ea 10/10/20 mcg-vilanterol 25 mcg/dose inhalation powder umeclidinium 62.5 mcg/actuation 1 inh INH DAILY@1500 #30 ea 10/10/20 blister powder for inhalation azithromycin 500 mg PO QAM 4 Days #8 tab 10/13/20 prednisone 20 mg PO .complex #18 tab 10/13/20 Results & Data (ED) Vital Signs Vital Signs - 24 hr 10/10/20 22:04 10/10/20 22:25 10/10/20 22:28 Temperature 36.7 C Temperature Source Temporal Artery Scan Pulse Rate 108 H 111 H Pulse Rate [Apical] Respiratory Rate 30 H 35 H Respiratory Effort / Characteristics Spontaneous Accessory Muscle Use Labored Spontaneous Accessory Muscle Use Short of Breath SOB on Exertion Tripoding Respiratory Depth Deep Respiratory Pattern Tachypnea Blood Pressure Blood Pressure Mean Pulse Oximetry 92 90 97 Oxygen Delivery Method Room Air Room Air Oxygen Flow Rate 0 Fraction of Inspired Oxygen 40 Sepsis Recent Fever Within 48 Hours No Sepsis New/Unexplained Change in Mental Status No Sepsis Action Taken by Nursing No Action Required Oxygen Flow Rate - Titration 15 Pulse Oximetry Post Tiitration 99 10/10/20 22:35 10/10/20 22:36 10/10/20 22:49 Temperature Temperature Source Pulse Rate 108 H Pulse Rate [Apical] 107 H Respiratory Rate 33 H 28 H Respiratory Effort / Characteristics Spontaneous Accessory Muscle Use Labored Short of Breath Tripoding Accessory Muscle Use Labored Short of Breath Tripoding Respiratory Depth Deep Respiratory Pattern Tachypnea Blood Pressure 181/116 H Blood Pressure Mean 137 Pulse Oximetry 99 98 Oxygen Delivery Method BiPAP CPAP Room Air Oxygen Flow Rate Fraction of Inspired Oxygen 40 40 Sepsis Recent Fever Within 48 Hours Sepsis New/Unexplained Change in Mental Status Sepsis Action Taken by Nursing Oxygen Flow Rate - Titration Pulse Oximetry Post Tiitration 10/10/20 23:00 10/10/20 23:31 10/10/20 23:32 Temperature Temperature Source Pulse Rate 94 H 94 H 96 H Pulse Rate [Apical] Respiratory Rate 26 H 17 23 Respiratory Effort / Characteristics Respiratory Depth Respiratory Pattern Blood Pressure 138/98 148/97 H Blood Pressure Mean 111 114 Pulse Oximetry 98 97 99 Oxygen Delivery Method BiPAP BiPAP BiPAP Oxygen Flow Rate Fraction of Inspired Oxygen 40 40 40 Sepsis Recent Fever Within 48 Hours Sepsis New/Unexplained Change in Mental Status Sepsis Action Taken by Nursing Oxygen Flow Rate - Titration Pulse Oximetry Post Tiitration Laboratory Data Result diagrams: 10/13/20 06:52 10/13/20 06:52 Lab Results 10/10/20 10/10/20 10/10/20 Range/Units 22:20 22:20 22:20 WBC 15.73 H (4.8-10.8) K/uL RBC 5.23 (4.7-6.1) M/uL Hgb 17.0 (14.0-18.0) g/dL Hct 47.8 (42-52) % MCV 91.4 (80-100) fL MCH 32.5 (25-34) pg MCHC 35.6 (32-36) g/dL RDW Std Deviation 45.0 (36.4-46.3) fL RDW Coeff of Sandra 13.4 (11.5-14.5) % Plt Count 281 (130-400) K/uL MPV 9.1 (7.4-10.4) fL Immature Gran % (Auto) 0.3 % Neut % (Auto) 64.0 % Lymph % (Auto) 20.9 % [place] % (Auto) 12.0 % Eos % (Auto) 2.5 % Baso % (Auto) 0.3 % Neut # (Auto) 10.10 H (1.4-6.5) K/uL Lymph # (Auto) 3.28 (1.2-3.4) K/uL [place] # (Auto) 1.88 H (0.11-0.59) K/uL Eos # (Auto) 0.39 (0-0.5) K/uL Baso # (Auto) 0.04 (0-0.2) K/uL Immature Gran # (Auto) 0.04 H (0.00-0.02) K/uL PT 10.6 (9.0-12.0) Seconds INR 1.0 (0.9-1.1) APTT 27.9 (21.0-31.0) Seconds PTT Ratio 1.1 Sodium 139 (136-145) mmol/L Potassium 4.0 (3.5-5.1) mmol/L Chloride 106 (98-107) mmol/L Carbon Dioxide 25 (21-32) mmol/L Anion Gap 8.0 (3-11) BUN 9 (7-18) mg/dl Creatinine 0.98 (0.6-1.4) mg/dl Est Cr Clr Drug Dosing 75.3 ml/min Est GFR ( Amer) 92.7 Est GFR (Non-Af Amer) 80.0 BUN/Creatinine Ratio 9.3 L (10-20) Glucose 109 H (70-99) mg/dl Calcium 9.7 (8.5-10.1) mg/dl Total Bilirubin 2.1 H (0.2-1) mg/dl AST 15 (15-37) U/L ALT 30 (12-78) U/L Alkaline Phosphatase 74 (45-117) U/L Total Creatine Kinase 116 (39-308) U/L CK-MB (CK-2) 1.7 (0.5-3.6) ng/ml CK/CKMB % Calc 1.5 (0-3.0) Troponin I < 0.015 (0-0.045) ng/ml Total Protein 8.2 (6.4-8.2) gm/dl Albumin 4.3 (3.4-5.0) gm/dl Globulin 3.9 (2.5-4.0) gm/dl Albumin/Globulin Ratio 1.1 (0.9-2) Lipase 139 (73-393) U/L COVID-19 Eval Order SARS-CoV-2 (PCR) (Negative) Hepatitis C Ab Screen (Neg) Influenza Type A (PCR) (Neg) Influenza Type B (PCR) (Neg) RSV (RT-PCR) (Neg) 10/10/20 10/10/20 10/10/20 Range/Units 22:20 22:22 22:22 WBC (4.8-10.8) K/uL RBC (4.7-6.1) M/uL Hgb (14.0-18.0) g/dL Hct (42-52) % MCV (80-100) fL MCH (25-34) pg MCHC (32-36) g/dL RDW Std Deviation (36.4-46.3) fL RDW Coeff of Sandra (11.5-14.5) % Plt Count (130-400) K/uL MPV (7.4-10.4) fL Immature Gran % (Auto) % Neut % (Auto) % Lymph % (Auto) % [place] % (Auto) % Eos % (Auto) % Baso % (Auto) % Neut # (Auto) (1.4-6.5) K/uL Lymph # (Auto) (1.2-3.4) K/uL [place] # (Auto) (0.11-0.59) K/uL Eos # (Auto) (0-0.5) K/uL Baso # (Auto) (0-0.2) K/uL Immature Gran # (Auto) (0.00-0.02) K/uL PT (9.0-12.0) Seconds INR (0.9-1.1) APTT (21.0-31.0) Seconds PTT Ratio Sodium (136-145) mmol/L Potassium (3.5-5.1) mmol/L Chloride (98-107) mmol/L Carbon Dioxide (21-32) mmol/L Anion Gap (3-11) BUN (7-18) mg/dl Creatinine (0.6-1.4) mg/dl Est Cr Clr Drug Dosing ml/min Est GFR ( Amer) Est GFR (Non-Af Amer) BUN/Creatinine Ratio (10-20) Glucose (70-99) mg/dl Calcium (8.5-10.1) mg/dl Total Bilirubin (0.2-1) mg/dl AST (15-37) U/L ALT (12-78) U/L Alkaline Phosphatase (45-117) U/L Total Creatine Kinase (39-308) U/L CK-MB (CK-2) (0.5-3.6) ng/ml CK/CKMB % Calc (0-3.0) Troponin I (0-0.045) ng/ml Total Protein (6.4-8.2) gm/dl Albumin (3.4-5.0) gm/dl Globulin (2.5-4.0) gm/dl Albumin/Globulin Ratio (0.9-2) Lipase (73-393) U/L COVID-19 Eval Order CovFluRsv at [facility] SARS-CoV-2 (PCR) NEGATIVE (Negative) Hepatitis C Ab Screen Neg (Neg) Influenza Type A (PCR) Negative (Neg) Influenza Type B (PCR) Negative (Neg) RSV (RT-PCR) Negative (Neg) Administered Medications Discontinued Medications Albuterol (Albut/Ipratrop 3mg/0.5mg Neb 3 Ml Vial) 12 ml NEB ONE ONE Stop: 10/10/20 22:19 Last Admin: 10/10/20 22:35 Dose: 12 ml Documented by: [id number] Albuterol (Albut/Ipratrop 3mg/0.5mg Neb 3 Ml Vial) 3 ml NEB QIDR [facility] Stop: 11/10/20 06:59 Last Admin: 10/13/20 14:29 Dose: Not Given Documented by: [id number] Admin: 10/13/20 11:01 Dose: 3 ml Documented by: [id number] Admin: 10/13/20 07:18 Dose: 3 ml Documented by: [id number] Admin: 10/12/20 20:04 Dose: 3 ml Documented by: [id number] Admin: 10/12/20 15:04 Dose: 3 ml Documented by: [id number] Admin: 10/12/20 11:26 Dose: 3 ml Documented by: [id number] Admin: 10/12/20 07:32 Dose: 3 ml Documented by: [id number] Admin: 10/12/20 03:09 Dose: 3 ml Documented by: [id number] Admin: 10/11/20 19:18 Dose: 3 ml Documented by: [id number] Admin: 10/11/20 15:15 Dose: 3 ml Documented by: [id number] Admin: 10/11/20 11:16 Dose: 3 ml Documented by: [id number] Admin: 10/11/20 07:14 Dose: 3 ml Documented by: [id number] Azithromycin (Azithromycin 250 Mg Tab) 500 mg PO QAM [facility] Stop: 10/17/20 09:01 Last Admin: 10/13/20 09:20 Dose: 500 mg Documented by: [id number] Doxazosin Mesylate (Doxazosin Mesylate 1 Mg Tab) 1 mg PO QAM [facility] Stop: 11/10/20 08:59 Last Admin: 10/13/20 09:18 Dose: 1 mg Documented by: [id number] Admin: 10/12/20 08:51 Dose: 1 mg Documented by: [id number] Admin: 10/11/20 07:40 Dose: 1 mg Documented by: [id number] Guaifenesin (Guaifenesin 600 Mg Tabcr) 600 mg PO Q12 [facility] Stop: 11/10/20 08:59 Last Admin: 10/13/20 09:19 Dose: 600 mg Documented by: [id number] Admin: 10/12/20 20:19 Dose: 600 mg Documented by: [id number] Admin: 10/12/20 08:52 Dose: 600 mg Documented by: [id number] Admin: 10/11/20 20:22 Dose: 600 mg Documented by: [id number] Admin: 10/11/20 07:38 Dose: 600 mg Documented by: [id number] Heparin Sodium (Porcine) (Heparin Sod 5,000 Unit/0.5 Ml Vial) 5,000 units SQ Q12 [facility] Stop: 11/10/20 08:59 Last Admin: 10/13/20 09:23 Dose: 5,000 units Documented by: [id number] Admin: 10/12/20 20:18 Dose: 5,000 units Documented by: [id number] Admin: 10/12/20 08:52 Dose: 5,000 units Documented by: [id number] Admin: 10/11/20 20:21 Dose: 5,000 units Documented by: [id number] Admin: 10/11/20 07:38 Dose: 5,000 units Documented by: [id number] Magnesium Sulfate/Dextrose (Magnesium Sulfate / D5w) 1 gm in 100 mls @ 100 mls/hr IV NOW STA Stop: 10/10/20 23:17 Last Infusion: 10/10/20 23:34 Dose: 0 mls/hr Documented by: [id number] Admin: 10/10/20 22:34 Dose: 100 mls/hr Documented by: [id number] Azithromycin 500 mg/ Dextrose 255 mls @ 125 mls/hr IV DAILY [facility] Stop: 10/18/20 08:59 Last Infusion: 10/12/20 12:03 Dose: 0 mls/hr Documented by: [id number] Admin: 10/12/20 09:00 Dose: 125 mls/hr Documented by: [id number] Infusion: 10/11/20 09:49 Dose: 0 mls/hr Documented by: [id number] Admin: 10/11/20 07:37 Dose: 125 mls/hr Documented by: [id number] Methylprednisolone 40 mg/ (Syringe) 0.64 mls @ 1.5 mls/min IV Q8H [facility] Stop: 11/10/20 05:59 Last Admin: 10/12/20 05:05 Dose: 1.5 mls/min Documented by: [id number] Admin: 10/11/20 20:21 Dose: 1.5 mls/min Documented by: [id number] Admin: 10/11/20 13:08 Dose: 1.5 mls/min Documented by: [id number] Admin: 10/11/20 06:25 Dose: 1.5 mls/min Documented by: [id number] Methylprednisolone (Methylprednisolone 125 Mg/2 Ml Vial) 125 mg IV NOW [facility] Stop: 10/10/20 22:19 Last Admin: 10/10/20 22:34 Dose: 125 mg Documented by: [id number] Prednisone (Prednisone 20 Mg Tab) 20 mg PO ONE ONE Stop: 10/12/20 21:01 Last Admin: 10/12/20 20:19 Dose: 20 mg Documented by: [id number] Prednisone (Prednisone 20 Mg Tab) 60 mg PO [facility] Stop: 11/12/20 08:59 Last Admin: 10/13/20 09:21 Dose: 60 mg Documented by: [id number] Rosuvastatin Calcium (Rosuvastatin Calcium 5 Mg Tab) 5 mg PO [facility] Stop: 11/10/20 08:59 Last Admin: 10/13/20 09:19 Dose: 5 mg Documented by: [id number] Admin: 10/12/20 08:51 Dose: 5 mg Documented by: [id number] Admin: 10/11/20 07:38 Dose: 5 mg Documented by: [id number] Triamcinolone Acetonide (Triamcinolone Acet 0.1% Cr 15 Gm Tube) 1 appln TOP DAILY [facility] Stop: 11/10/20 08:59 Last Admin: 10/13/20 09:26 Dose: 1 appln Documented by: [id number] Admin: 10/12/20 08:52 Dose: 1 appln Documented by: [id number] Admin: 10/11/20 07:38 Dose: 1 appln Documented by: [id number] Discharge Plan Visit Data Chief Complaint: Shortness of Breath/Dyspnea Stated Complaint: SHORTNESS OF BREATH ED Provider: Gabe Claire Discharge Problem: Acute respiratory failure, COPD with emphysema Patient Disposition: Admitted As Inpatient Discharge Instructions Interventions: ED Discharge Assessment Last Done: 10/11/20 00:55 Discharge Problem: Acute respiratory failure Qualifiers: Respiratory failure complication: unspecified whether with hypoxia or hypercapnia Qualified Code(s): J96.00 - Acute respiratory failure, unspecified whether with hypoxia or hypercapnia
[2020-10-10 22:36] LABS: Basophils # (auto) 0.04 K/uL (0-0.2); Basophils % (auto) 0.3 %; Eosinophils # (auto) 0.39 K/uL (0-0.5); Eosinophils % (auto) 2.5 %; Hematocrit (blood only) 47.8 % (42-52); Immature Granulocytes # (auto) 0.04 K/uL (0.00-0.02); Immature Granulocytes % (auto) 0.3 %; Lymphocytes # (auto) 3.28 K/uL (1.2-3.4); Lymphocytes % (auto) 20.9 %; Mean Corpuscular Hemoglobin 32.5 pg (25-34); Mean Corpuscular Hgb Conc 35.6 g/dL (32-36); Mean Corpuscular Volume 91.4 fL (80-100); Mean Platelet Volume 9.1 fL (7.4-10.4); Monocytes # (auto) 1.88 K/uL (0.11-0.59); Platelet Count 281 K/uL (130-400); RDW Coefficient of Variation 13.4 % (11.5-14.5); Red Blood Count 5.23 M/uL (4.7-6.1); White Blood Count 15.73 K/uL (4.8-10.8)
[2020-10-10 22:50] LABS: Alanine Aminotransferase 30 U/L (12-78); Albumin Level 4.3 gm/dl (3.4-5.0); Aspartate Aminotransferase 15 U/L (15-37); BUN Creatinine Ratio 9.3 (10-20); Blood Urea Nitrogen 9 mg/dl (7-18); Calcium 9.7 mg/dl (8.5-10.1); Carbon Dioxide 25 mmol/L (21-32); Chloride 106 mmol/L (98-107); Creatinine Clr Calc Pharmacy 75.3 ml/min; Est GFR (African American) 92.7; Glucose 109 mg/dl (70-99); Lipase 139 U/L (73-393); Sodium 139 mmol/L (136-145)
[2020-10-10 22:53] LABS: Partial Thromboplastin Ratio 1.1; Partial Thromboplastin Time 27.9 Seconds (21.0-31.0); Prothrombin Time 10.6 Seconds (9.0-12.0)
[2020-10-10 22:55] LABS: Albumin Globulin Ratio 1.1 (0.9-2); Alkaline Phosphatase 74 U/L (45-117); Bilirubin,Total 2.1 mg/dl (0.2-1); Creatine Kinase 116 U/L (39-308); Creatine Kinase MB 1.7 ng/ml (0.5-3.6); Globulin 3.9 gm/dl (2.5-4.0); Total Protein 8.2 gm/dl (6.4-8.2); Troponin I < 0.015 ng/ml (0-0.045)
--- NOTE | 2020-10-10 23:38 | History & Physical Report ---
Date of Service October 10, 2020 Assessment & Plan (1) COPD exacerbation: Duonebs every 4 hours while awake and every 2 hours when necessary. Guaifenesin extended release 600 mg p.o. twice daily Methylprednisolone 40 mg IV every 8 hours Nasal cannula oxygen titrate to keep pulse ox around 92% Azithromycin 500 mg IV daily Hold usual inhalers for now. Patient likely would benefit from having a home nebulizer unit with appropriate medications Present on Admission?: Yes (2) BPH with obstruction/lower urinary tract symptoms: Continue doxazosin 1 mg every morning Present on Admission?: Yes (3) Hyperlipidemia: Continue rosuvastatin 5 mg every morning Present on Admission?: Yes History of Present Illness Chief Complaint: Patient presents to the emergency department with acute onset of shortness of breath at rest and dyspnea on exertion earlier in the day prior to arrival. Primary Care Provider: Layo Khan MD The patient is a 65-year-old male with a past medical history including asthma, renal cyst, mixed conductive and sensorineural hearing loss of left ear with restricted hearing of right ear, internal hemorrhoids, BPH with LUTS, COPD exacerbation, hyperlipidemia, acute respiratory failure, tobacco abuse and hyperlipidemia. The patient reports that he has been without his inhalers recently, and presents with symptoms as noted above. Allergies Allergy/AdvReac Type Severity Reaction Status Date / Time atorvastatin Allergy Mild RASH Verified 10/10/20 23:14 Home Medications Medication Instructions Recorded Confirmed Type triamcinolone acetonide 0.1 % 1 applic TOPICAL DAILY #30 g 05/13/20 10/10/20 Rx topical cream albuterol sulfate 90 mcg/actuation 2 puff INHALATION Q6H PRN #18 g 05/16/20 10/10/20 Rx aerosol inhaler rosuvastatin 5 mg tablet 5 mg PO QAM #30 tab 08/23/20 10/10/20 Rx doxazosin 1 mg PO QAM 08/30/20 10/10/20 History clotrimazole-betamethasone 1 1 applic TOPICAL BID 14 Days #45 g 09/26/20 10/10/20 Rx %-0.05 % topical cream prednisone 10 mg tablet 10 mg PO .COMPLEX #42 tab 09/26/20 10/10/20 Rx fluticasone furoate 100 1 inh INH QAM #60 ea 03/22/21 03/22/21 Rx mcg-vilanterol 25 mcg/dose inhalation powder umeclidinium 62.5 mcg/actuation 1 inh INH DAILY@1500 #30 ea 10/10/20 10/10/20 Rx blister powder for inhalation Past Med/Surg History Medical History Arthritis Chronic obstructive pulmonary disease Hearing deficit Hyperlipidemia Scoliosis Surgical History History of colonoscopy History of ear surgery RT/LEFT EAR SURGERY A CHILD History of incisional hernia repair (03/15/20) Laparoscopic Repair of Incarcerated Incisional Hernia with SurgiMesh, Lysis of Adhesions(Not Applicable) - Roland Higuera MD 03/15/20 History of inguinal hernia repair Right inguinal hernia repair 02/02/2016. Left laparoscopic inguinal hernia repair 05/23/2019. History of umbilical hernia repair incarcerated umbilical hernia repair for person over age 5 Family History Mother Breast cancer Unknown Breast cancer Brother Arthritis Cancer Father Alcohol abuse Cancer Sister Cancer Patient believes 1 sister had cervical cancer Denies family history of Ovarian cancer Prostate cancer Myocardial infarction Colorectal cancer Social History Smoking Status: Former smoker Age Started Using Tobacco: 6; Age Quit Using Tobacco: 64; packs per day: 0.5; Second Hand Exposure: No; Do You Dip or Chew Tobacco: No; Hx Alcohol Use: No Hx Substance Use: No Preferred Language: Romanian Communication Ability: Effective Visual Impairment: Limited Hearing Ability: Hard of Hearing Exercise Teacher Required: No Beliefs That Will Affect Care: None marital status: Single Current Living Situation: Other Current Living Situation Comment: mar[facility] current occupational status: retired 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 How many Children do You have: 4 Feels Safe at Home: Yes Childhood Exposure to Second-Hand Smoke: Yes caffeine: Yes (coffee) Dental Care, Regularly: No Physical Activity Frequency: Daily Physical Activity Frequency Comment: walk Seatbelt Use: never Sunscreen Use: No Assistive Devices: None Review of Systems Review of Systems: The patient denies chest pain, palpitations, cough, lower extremity swelling, sore throat, fevers, chills, sweats, nausea, vomiting, diarrhea , constipation, abdominal pain, pelvic pain, blood in urine or stool, dysuria, urinary frequency or urgency, lightheadedness, dizziness, headache, memory loss, loss of consciousness, rash, abnormal bruising or bleeding, imbalance, focal or generalized weakness, numbness or tingling in arms or legs, generalized arthralgias or myalgias, back or neck pain, or night sweats. The review of systems is otherwise negative other than for that already noted above, and at least 10 systems have been reviewed. Physical Exam Physical Exam: The patient is awake, alert and oriented 3, well developed and well nourished, normocephalic and atraumatic, lying in bed and in no acute distress. HEENT--PERRL, EOMI, mucous membranes and oropharynx normal. Neck--supple. No JVD. No bruits. Thyroid normal, trachea midline, no adenopa thy. Heart--normal S1 and S2. No murmurs, rubs or gallops. Lungs--decreased breath sounds throughout. No respiratory distress, no accessory muscle use. Abdomen--normal bowel sounds and soft. Nontender. Mildly distended. Mildly tympanic Extremities--no cyanosis or clubbing. No edema. Dermatologic--normal skin turgor, normal color, no abnormal lymph nodes, no rash. Neurologic--cranial nerves II through XII grossly intact. Rheumatologic--normal range of motion. Psychiatric--normal affect. Results & Data Results & Data ([facility]) Vital Signs (Past 12 Hours) Vital Signs Temp Pulse Pulse Resp BP Pulse Ox 10/10/20 23:00 94 H 26 H 138/98 98 10/10/20 22:36 108 H 28 H 181/116 H 98 10/10/20 22:35 107 H 33 H 99 10/10/20 22:28 111 H 35 H 97 10/10/20 22:25 90 10/10/20 22:04 98.1 F 108 H 30 H 92 Laboratory Results Laboratory Results WBC 15.73 K/uL (4.8-10.8) H 10/10/20 22:20 RBC 5.23 M/uL (4.7-6.1) 10/10/20 22:20 Hgb 17.0 g/dL (14.0-18.0) 10/10/20 22:20 Hct 47.8 % (42-52) 10/10/20 22:20 MCV 91.4 fL (80-100) 10/10/20 22:20 MCH 32.5 pg (25-34) 10/10/20 22: MCHC 35.6 g/dL (32-36) 10/10/20 22:20 RDW Std Deviation 45.0 fL (36.4-46.3) 10/10/20: RDW Coeff of Sandra 13.4 % (11.5-14.5) 10/10/20: Plt Count 281 K/uL (130-400) 10/10/20 22:20 MPV 9.1 fL (7.4-10.4) 10/10/20: Immature Gran % (Auto) 0.3 % 10/10/20 22:20 Neut % (Auto) 64.0 % 10/10/20 22:20 Lymph % (Auto) 20.9 % 10/10/20 22:20 [place] % (Auto) 12.0 % 10/10/20 22:20 Eos % (Auto) 2.5 % 10/10/20 22:20 Baso % (Auto) 0.3 % 10/10/20 22:20 Neut # (Auto) 10.10 K/uL (1.4-6.5) H 10/10/20 22: Lymph # (Auto) 3.28 K/uL (1.2-3.4) 10/10/20 22:20 [place] # (Auto) 1.88 K/uL (0.11-0.59) H 10/10/20 22:20 Eos # (Auto) 0.39 K/uL (0-0.5) 10/10/20 22:20 Baso # (Auto) 0.04 K/uL (0-0.2) 10/10/20: Immature Gran # (Auto) 0.04 K/uL (0.00-0.02) H 10/10/20:20 PT 10.6 Seconds (9.0-12.0) 10/10/20 22:20 INR 1.0 (0.9-1.1) 10/10/20 22: APTT 27.9 Seconds (21.0-31.0) 10/10/20 22:20 PTT Ratio 1.1 10/10/20 22:20 Sodium 139 mmol/L (136-145) 10/10/20 22:20 Potassium 4.0 mmol/L (3.5-5.1) 10/10/20 22:20 Chloride 106 mmol/L (98-107) 10/10/20 22:20 Carbon Dioxide 25 mmol/L (21-32) 10/10/20 22:20 Anion Gap 8.0 (3-11) 10/10/20 22:20 BUN 9 mg/dl (7-18) 10/10/20 22:20 Creatinine 0.98 mg/dl (0.6-1.4) 10/10/20 22:20 Est Cr Clr Drug Dosing 75.3 ml/min 10/10/20 22:20 Est GFR ( Amer) 92.7 10/10/20 22:20 Est GFR (Non-Af Amer) 80.0 10/10/20 22:20 BUN/Creatinine Ratio 9.3 (10-20) L 10/10/20 22:20 Glucose 109 mg/dl (70-99) H 10/10/20 22:20 Calcium 9.7 mg/dl (8.5-10.1) 10/10/20 22:20 Total Bilirubin 2.1 mg/dl (0.2-1) H 10/10/20 22:20 AST 15 U/L (15-37) 10/10/20 22:20 ALT 30 U/L (12-78) 10/10/20 22:20 Alkaline Phosphatase 74 U/L (45-117) 10/10/20 22:20 Total Creatine Kinase 116 U/L (39-308) 10/10/20 22:20 CK-MB (CK-2) 1.7 ng/ml (0.5-3.6) 10/10/20 22:20 CK/CKMB % Calc 1.5 (0-3.0) 10/10/20 22:20 Troponin I < 0.015 ng/ml (0-0.045) 10/10/20 22:20 Total Protein 8.2 gm/dl (6.4-8.2) 10/10/20 22:20 Albumin 4.3 gm/dl (3.4-5.0) 10/10/20 22:20 Globulin 3.9 gm/dl (2.5-4.0) 10/10/20 22:20 Albumin/Globulin Ratio 1.1 (0.9-2) 10/10/20 22:20 Lipase 139 U/L (73-393) 10/10/20 22:20 COVID-19 Eval Order CovFluRsv at [facility] 10/10/20 22:22 SARS-CoV-2 (PCR) NEGATIVE (Negative) 10/10/20 22:22 Hepatitis C Ab Screen Neg (Neg) 10/10/20 22:20 Influenza Type A (PCR) Negative (Neg) 10/10/20 22:22 Influenza Type B (PCR) Negative (Neg) 10/10/20 22:22 RSV (RT-PCR) Negative (Neg) 10/10/20 22:22 Code Status & VTE Plan Code Status Full code VTE Prophylaxis Plan VTE Prophylaxis will be ordered: Yes PG Care Time/CCT Total # of Minutes Spent Total Time Spent with Patient: Total time spent is greater than 50% in coordination of care (as documented) at patient's floor/unit and/or counseling patient: Coding Level of Care Code 37125 Initial Inpt Care Lvl 2 Diagnoses COPD exacerbation J44.1 BPH with obstruction/lower urinary tract symptoms N40.1; N13.8 Hyperlipidemia E78.5
[2020-10-10 23:39] LABS: Influenza A virus by PCR Negative (Neg); Influenza B virus by PCR Negative (Neg); RSV by PCR Negative (Neg); SARS CoV2 RNA(COVID-19) InHosp NEGATIVE (Negative)
[2020-10-11] MEDS ORDERED: ALUMINUM/MAGNESIUM SUSP 30 ML UDC PO PRN (01:18)
[2020-10-11] MEDS ORDERED: MAGNESIUM HYDROXIDE SUSP 30 ML UDC PO PRN (01:18)
[2020-10-11] MEDS ORDERED: ACETAMINOPHEN 325 MG TAB PO PRN (01:18)
[2020-10-11] MEDS ORDERED: ONDANSETRON INJ 2 MG/ML 2 ML VIAL IV PRN (01:18)
[2020-10-11] MEDS: methylPREDNISolone 40 MG in SYRINGE 0 ML IV SCH ×3 (06:25→20:21)
--- NOTE | 2020-10-11 06:56 | XRay Report ---
XR chest 1V portable CLINICAL HISTORY: Atypical chest pain COMPARISON STUDY: 12/03/2019 FINDINGS: The cardiac and mediastinal contours remain stable. There is no failure. There is no focal pulmonary consolidation. There are no pleural effusions. A subcentimeter rounded opacity towards the right lung base likely represents a nipple shadow. There is pulmonary emphysema.[ IMPRESSION: 1. Pulmonary emphysema 2. No active disease in the chest. ACT 112: Negative or not required by law. Electronically signed by: Chun Rowley M.D. 10/11/2020 6:55 AM
[2020-10-11] MEDS: ALBUT/IPRATROP 3MG/0.5MG NEB 3 ML VIAL NEB SCH ×4 (07:14→19:18)
[2020-10-11] MEDS: AZITHROMYCIN 500 MG in DEXTROSE 5% 250 ML IV SCH (07:37)
[2020-10-11] MEDS: TRIAMCINOLONE ACET 0.1% CR 15 GM TUBE TOP SCH (07:38)
[2020-10-11] MEDS: HEPARIN SOD 5,000 UNIT/0.5 ML VIAL SQ SCH ×2 (07:38→20:21)
[2020-10-11] MEDS: ROSUVASTATIN CALCIUM 5 MG TAB PO SCH (07:38)
[2020-10-11] MEDS: guaiFENesin 600 MG TABCR PO SCH ×2 (07:38→20:22)
[2020-10-11] MEDS: DOXAZOSIN MESYLATE 1 MG TAB PO SCH (07:40)
[2020-10-11 07:42] LABS: Basophils # (auto) 0.01 K/uL (0-0.2); Basophils % (auto) 0.1 %; Eosinophils # (auto) 0.01 K/uL (0-0.5); Eosinophils % (auto) 0.1 %; Hematocrit (blood only) 45.7 % (42-52); Hemoglobin 16.1 g/dL (14.0-18.0); Immature Granulocytes # (auto) 0.02 K/uL (0.00-0.02); Immature Granulocytes % (auto) 0.2 %; Lymphocytes # (auto) 0.59 K/uL (1.2-3.4); Lymphocytes % (auto) 6.8 %; Mean Corpuscular Hemoglobin 31.9 pg (25-34); Mean Corpuscular Hgb Conc 35.2 g/dL (32-36); Mean Corpuscular Volume 90.5 fL (80-100); Mean Platelet Volume 8.9 fL (7.4-10.4); Monocytes # (auto) 0.14 K/uL (0.11-0.59); Monocytes % (auto) 1.6 %; Neutrophils # (auto) 7.86 K/uL (1.4-6.5); Neutrophils % (auto) 91.2 %; Platelet Count 246 K/uL (130-400); RDW Coefficient of Variation 13.5 % (11.5-14.5); RDW Standard Deviation 44.1 fL (36.4-46.3); Red Blood Count 5.05 M/uL (4.7-6.1); White Blood Count 8.63 K/uL (4.8-10.8)
--- NOTE | 2020-10-11 07:58 | Hospitalist Progress Note ---
Date of Service October 11, 2020 Assessment & Plan (1) COPD exacerbation: 65 y/o M w/ hx of COPD, internal hemorrhoids, BPH, and tobacco abuse who presents w/ COPD exacerbation. COPD exacerbation - reviewed outpatient pulm visit note 05/16/20 Dr Kauffman. Moderate COPD w/ moderate emphysema on Breo and Incruse daily. Continued ICS because elevated abs eos count of 600 in 11/2019. - this admission, provided duonebs, guaifenesin, methylpred (40 IV q8), azithromycin IV - Hold usual inhalers for now. - no leukocytosis - cxr has some atlectasis at bases near cardiac border per my read, otherwise unchanged from prior in 11/2019 - Patient likely would benefit from having a home nebulizer unit with appropriate medications - Will readdress meds w/ patient. If unable to obtain Incuse Ellipta or Breo Ellipta, can consider other ICS alternatives - Upon dispo, f/u w/ pulmonology Abdominal distention - chronic, upon records review. Had CT abd in 08/2020 for this complaint, no acute process, no ascites - - may be related to habitus - elevated t bili 1.9 (has chronically had some elevation), but transaminases not elevated - pt denies issues w/ BMs - outpt f/u BPH - Continue doxazosin 1 mg every morning hyperlipidemia - continue rosuvastatin 5 qam FEN/GI: heart healthy. no mIVF ppx: sq heparin code: full dispo med/surg; tentative dispo 10/12 (2) BPH with obstruction/lower urinary tract symptoms: (3) Hyperlipidemia: Admission and Anticipated Discharge Date Admission Date: October 10, 2020 Supervising Physician Co-Signing Physician Notes Attending Attestation I also saw the patient confirmed morales portions of the history and physical examination. I agree with the impression and plan as noted in the resident documentation, with exceptions as noted below. 65-year-old male admitted last evening with a 1 to 2-day history of progressively worsening dyspnea. The patient explains today that his lungs felt " tight" similar to his prior COPD exacerbations. Denies any fever or chills. No known sick contacts. He was given methylprednisolone in the emergency department and was maintained on 40 mg IV every 8 hours along with guaifenesin, azithromycin, and supplemental oxygen. This morning, he does feel improved as compared to yesterday but not at his baseline. Exam 117/77, 88, 20, 36.3, 94% on room air Pleasant. He is talkative. He can talk in full complete sentences, multiple, without stopping for breath. Neck supple. No jugular venous distention appreciated. Heart is regular Lungs with decreased air movement, mid and expiratory wheezing bilaterally. Abdomen is somewhat distended but soft and nontender. Laboratory White blood cell count was 15.73 on admission, 8.63 upon repeat today. Hemoglobin 16.1 today. BMP was unremarkable. BUN 12, creatinine 0.91. Imaging Chest x-ray done yesterday shows findings consistent with emphysema. No infiltrate appreciated. Impression & Plan COPD exacerbation Generally some improvement overnight but not at baseline. Continue current care including IV steroids; may be able to transition to oral tomorrow. Continue Zithromax and scheduled nebulizers. Subjective Patient states that he had run out of his Breo inhaler x 1 week (difficulty in obtaining) and that prior to this, he had been doing well in the year since his last COPD hospital admission. He had quit smoking completely since that last admission. He snores at night, but does not recall being diagnosed w/ NAOMI. His appetite is good. His abdomen has felt a bit more distended, especially after eating. He had a recent BM. His SOB is much improved than on admission. Review of Systems Review of Systems: Constitutional: Denies fever, chills, unintentional weight loss Eyes: Denies blurry vision, vision changes Cardiovascular: Denies chest pain Respiratory: See HPI. Gastrointestinal: Denies abdominal pain, nausea, vomiting. Intermittent bloody stool that he attributes to hemorrhoids. Genitourinary: Denies dyusuria Musculoskeletal: Denies weakness, muscle aches/pain, joint aches/pain Neurological: Denies headache, numbness, tingling, focal weakness Physical Exam Physical Exam: General: Grossly A&O. NAD. Cooperative. HEENT: Atraumatic, normocephalic. Pulm: Mild coarseness at bases. Faint end expiratory wheeze at PM exam. No respiratory distress. Cardiac: RRR, -mrg. No LE edema. Abdominal: Nontender, soft. Distended. Results & Data Results & Data ([facility]) Vital Signs (Past 12 Hours) Vital Signs Temp Pulse Pulse Resp BP BP Pulse Ox 10/11/20 07:14 77 20 97 10/11/20 07:08 83 10/11/20 06:05 97 10/11/20 03:36 10/11/20 01:38 84 10/11/20 01:36 37.0 C 90 24 138/93 95 10/11/20 00:44 80 30 H 97 10/11/20 00:30 88 13 119/77 98 10/10/20 23:32 96 H 23 99 10/10/20 23:31 94 H 17 148/97 H 97 10/10/20 23:00 94 H 26 H 138/98 98 10/10/20 22:36 108 H 28 H 181/116 H 98 10/10/20 22:35 107 H 33 H 99 10/10/20 22:28 111 H 35 H 97 10/10/20 22:25 90 10/10/20 22:04 36.7 C 108 H 30 H 92 Pulse Ox 10/11/20 07:14 10/11/20 07:08 10/11/20 06:05 10/11/20 03:36 96 10/11/20 01:38 10/11/20 01:36 10/11/20 00:44 10/11/20 00:30 10/10/20 23:32 10/10/20 23:31 10/10/20 23:00 10/10/20 22:36 10/10/20 22:35 10/10/20 22:28 10/10/20 22:25 10/10/20 22:04 Resident Activity Tracking Resident Involvement: Resident Care Provided Care Provided: Adult Hospital Medicine
[2020-10-11 08:12] LABS: Albumin Level 3.8 gm/dl (3.4-5.0); BUN Creatinine Ratio 13.6 (10-20); Calcium 9.6 mg/dl (8.5-10.1); Creatinine Clr Calc Pharmacy 85.4 ml/min; Est GFR (African American) 101.4; Est GFR (Non-African American) 87.5; Potassium 4.4 mmol/L (3.5-5.1)
[2020-10-11 08:15] LABS: Bilirubin,Total 1.9 mg/dl (0.2-1); Total Protein 7.8 gm/dl (6.4-8.2)
--- NOTE | 2020-10-11 14:29 | Electrocardiogram Report ---
Test Reason : Blood Pressure : / mmHG Vent. Rate : 102 BPM Atrial Rate : 102 BPM P-R Int : 224 ms QRS Dur : 104 ms QT Int : 332 ms P-R-T Axes : 000 -03 033 degrees QTc Int : 432 ms Poor data quality, interpretation may be adversely affected Sinus tachycardia with 1st degree A-V block with occasional Premature ventricular complexes Borderline ECG When compared with ECG of 03-DEC-2019 12:31, Premature ventricular complexes are now Present TX interval has increased Confirmed by Layo Mendoza ([id number]) on 10/11/2020 2:29:00 PM Referred By: REFERRED SELF Confirmed By:Hira Mendoza
--- NOTE | 2020-10-11 14:31 | Electrocardiogram Report ---
Test Reason : Blood Pressure : / mmHG Vent. Rate : 092 BPM Atrial Rate : 092 BPM P-R Int : 154 ms QRS Dur : 086 ms QT Int : 344 ms P-R-T Axes : 036 -09 022 degrees QTc Int : 425 ms Poor data quality, interpretation may be adversely affected Normal sinus rhythm Normal ECG When compared with ECG of 10-OCT-2020 22:16, (unconfirmed) Premature ventricular complexes are no longer Present UT interval has decreased Confirmed by Layo Mendoza ([id number]) on 10/11/2020 2:31:25 PM Referred By: REFERRED SELF Confirmed By:Hira Mendoza
[2020-10-12] MEDS ORDERED: ALBUT/IPRATROP 3MG/0.5MG NEB 3 ML VIAL NEB PRN (02:50)
[2020-10-12] MEDS: ALBUT/IPRATROP 3MG/0.5MG NEB 3 ML VIAL NEB SCH ×5 (03:09→20:04)
[2020-10-12] MEDS: methylPREDNISolone 40 MG in SYRINGE 0 ML IV SCH (05:05)
[2020-10-12 07:02] LABS: Hematocrit (blood only) 40.3 % (42-52); Hemoglobin 14.5 g/dL (14.0-18.0); Immature Granulocytes # (auto) 0.03 K/uL (0.00-0.02); Immature Granulocytes % (auto) 0.2 %; Lymphocytes # (auto) 0.66 K/uL (1.2-3.4); Lymphocytes % (auto) 3.7 %; Mean Corpuscular Hemoglobin 32.2 pg (25-34); Mean Corpuscular Volume 89.6 fL (80-100); Mean Platelet Volume 8.9 fL (7.4-10.4); Monocytes # (auto) 0.81 K/uL (0.11-0.59); Monocytes % (auto) 4.6 %; Neutrophils # (auto) 16.29 K/uL (1.4-6.5); Neutrophils % (auto) 91.5 %; Platelet Count 246 K/uL (130-400); RDW Coefficient of Variation 13.4 % (11.5-14.5); RDW Standard Deviation 44.5 fL (36.4-46.3); White Blood Count 17.79 K/uL (4.8-10.8)
--- NOTE | 2020-10-12 07:08 | Hospitalist Progress Note ---
Date of Service October 12, 2020 Assessment & Plan (1) COPD exacerbation: 65 y/o M w/ hx of COPD, internal hemorrhoids, BPH, and tobacco abuse who presents w/ COPD exacerbation. Stable. COPD exacerbation, improving - reviewed outpatient pulm visit note 05/16/20 Dr Kauffman. Moderate COPD w/ mode rate emphysema on Breo and Incruse daily. He continued ICS because elevated abs eos count of 600 in 11/2019. - this admission, provided duonebs, guaifenesin, methylpred (40 IV q8), azithromycin IV. - 10/12: transitioned to PO prednisone in PM. Plan for outpatient taper is prednisone 60 mg x 3 days, 40 mg x 3 days, 20 mg x 3 days. - 10/12: will start PO azithromycin on 10/13 - wbc 15.73->8.63->17.79 (10/12). will continue trending - 10/12: still requiring supplemental O2 (2L nasal cannula), satting mostly 90-94 - Hold usual inhalers for now. - cxr has some atlectasis at bases near cardiac border per my read, otherwise unchanged from prior in 11/2019 - Patient requesting home nebulizer; will consider - Checked w/ case management regarding Breo Ellipta which patient had difficulty filling. Patient has valid prescription. - Upon dispo, f/u w/ pulmonology Abdominal distention - chronic, upon records review. Had CT abd in 08/2020 for this complaint, no acute process, no ascites - - may be related to habitus - elevated t bili 1.9 (has chronically had some elevation), but transaminases not elevated - pt denies issues w/ BMs - outpt f/u BPH - Continue doxazosin 1 mg every morning hyperlipidemia - continue rosuvastatin 5 qam FEN/GI: heart healthy. no mIVF ppx: sq heparin code: full dispo med/surg; tentative dispo 10/12 (2) BPH with obstruction/lower urinary tract symptoms: (3) Hyperlipidemia: Admission and Anticipated Discharge Date Admission Date: October 10, 2020 Supervising Physician Co-Signing Physician Notes Attending Attestation I also saw the patient confirmed morales portions of the history and physical examination. I agree with the impression and plan as noted in the resident documentation, with exceptions as noted below. When seen this morning, the patient is seated in bed. He tells us that his breathing feels better than yesterday. He thinks he is close to his baseline. Exam 125/82, 91, 16, 35.9, 96% on 2 L/min Pleasant. He is talkative. Neck supple. No jugular venous distention appreciated. Heart is regular Lungs with improved air movement compared to yesterday, he does have mid to end expiratory wheezing in all reyes. He does have a prolonged expiratory phase. Abdomen is Soft and nontender Laboratory White blood cell count 17.79 BUN 22, creatinine 1.09. Electrolytes are within normal limits. Imaging Chest x-ray done 10/10 shows findings consistent with emphysema. No infiltrate appreciated. Impression & Plan Acute respiratory failure, POA, resolved COPD exacerbation Continues to improve Suspect leukocytosis secondary to steroids We will change steroids to p.o. prednisone We will change azithromycin to p.o. If he tolerates p.o. medications without worsening upon exam, he may be ready for discharge home tomorrow. Subjective Patient reports that his breathing is better today and that he feels at his baseline. He has been able to cough up some brown sputum which has provided some relief of his symptoms. His breathing is more comfortable when he is supine. He feels ready for home either today or tomorrow. Review of Systems Review of Systems: Constitutional: Denies fever, chills Cardiovascular: Denies chest pain, palpitations Respiratory: See HPI Gastrointestinal: Denies abdominal pain, nausea, vomiting, constipation, diarrhea. + hiccups. Genitourinary: Denies dysuria Musculoskeletal: Denies weakness, muscle aches/pain, joint aches/pain Neurological: Denies headache, numbness, tingling, focal weakness Physical Exam Physical Exam: General: Grossly A&O. NAD. Cooperative. HEENT: Atraumatic, normocephalic. Pulm: Mild/brief end exp wheezing on r mid and lower reyes. Clear otherwise. Prolonged expiratory phased. No respiratory distress. Cardiac: RRR, -mrg. No LE edema. Abdominal: Abdomen mild-moderately distended, improved from yesterday's exam. Results & Data Results & Data ([facility]) Vital Signs (Past 12 Hours) Vital Signs Temp Pulse Pulse Resp BP Pulse Ox 10/12/20 03:15 36.6 C 90 18 94/55 L 94 10/12/20 03:11 70 91 10/12/20 02:58 78 10/11/20 22:51 36.6 C 73 16 94/55 L 91 10/11/20 19:19 86 18 91 10/11/20 19:16 36.6 C 90 16 104/61 92 Resident Activity Tracking Resident Involvement: Resident Care Provided Care Provided: Adult Hospital Medicine
[2020-10-12 07:38] LABS: Albumin Globulin Ratio 1.1 (0.9-2); Albumin Level 3.6 gm/dl (3.4-5.0); BUN Creatinine Ratio 19.8 (10-20); Bilirubin,Total 1.4 mg/dl (0.2-1); Calcium 8.9 mg/dl (8.5-10.1); Creatinine Clr Calc Pharmacy 70.7 ml/min; Est GFR (African American) 81.5; Est GFR (Non-African American) 70.4; Globulin 3.4 gm/dl (2.5-4.0); Potassium 4.2 mmol/L (3.5-5.1)
[2020-10-12] MEDS: ROSUVASTATIN CALCIUM 5 MG TAB PO SCH (08:51)
[2020-10-12] MEDS: DOXAZOSIN MESYLATE 1 MG TAB PO SCH (08:51)
[2020-10-12] MEDS: TRIAMCINOLONE ACET 0.1% CR 15 GM TUBE TOP SCH (08:52)
[2020-10-12] MEDS: guaiFENesin 600 MG TABCR PO SCH ×2 (08:52→20:19)
[2020-10-12] MEDS: HEPARIN SOD 5,000 UNIT/0.5 ML VIAL SQ SCH ×2 (08:52→20:18)
[2020-10-12] MEDS: AZITHROMYCIN 500 MG in DEXTROSE 5% 250 ML IV SCH (09:00)
[2020-10-12] MEDS ORDERED: predniSONE 20 MG TAB PO ONE ×2 (13:00→21:00)
--- NOTE | 2020-10-13 06:46 | Hospitalist Progress Note ---
Date of Service October 13, 2020 Assessment & Plan (1) COPD exacerbation: 65 y/o M w/ hx of COPD, internal hemorrhoids, BPH, and tobacco abuse who presents w/ COPD exacerbation. Stable. COPD exacerbation, improving - reviewed outpatient pulm visit note 05/16/20 Dr Kauffman. Moderate COPD w/ mode rate emphysema on Breo and Incruse daily. He continued ICS because elevated abs eos count of 600 in 11/2019. - this admission, provided duonebs, guaifenesin, methylpred (40 IV q8), azithromycin IV. - 10/12: transitioned to PO prednisone in PM. Plan for outpatient taper is prednisone 60 mg x 3 days, 40 mg x 3 days, 20 mg x 3 days. - 10/12: will start PO azithromycin on 10/13 - wbc 15.73->8.63->17.79 (10/12). will continue trending - 10/12: still requiring supplemental O2 (2L nasal cannula), satting mostly 90-94 - Hold usual inhalers for now. - cxr has some atlectasis at bases near cardiac border per my read, otherwise unchanged from prior in 11/2019 - Patient requesting home nebulizer; will consider - Checked w/ case management regarding Breo Ellipta which patient had difficulty filling. Patient has valid prescription. - Upon dispo, f/u w/ pulmonology Abdominal distention - chronic, upon records review. Had CT abd in 08/2020 for this complaint, no acute process, no ascites - - may be related to habitus - elevated t bili 1.9 (has chronically had some elevation), but transaminases not elevated - pt denies issues w/ BMs - outpt f/u BPH - Continue doxazosin 1 mg every morning hyperlipidemia - continue rosuvastatin 5 qam FEN/GI: heart healthy. no mIVF ppx: sq heparin code: full dispo med/surg; tentative dispo 10/12 (2) BPH with obstruction/lower urinary tract symptoms: Continue doxazosin 1 mg every morning (3) Hyperlipidemia: Continue rosuvastatin 5 mg every morning Admission and Anticipated Discharge Date Admission Date: October 10, 2020 Review of Systems Review of Systems: Constitutional: Denies fever, chills, weight change Eyes: Denies blurry vision, vision changes ENT: Denies sore throat, sinus pain Cardiovascular: Denies chest pain, palpitations Respiratory: Denies shortness of breath Gastrointestinal: Denies abdominal pain, nausea, vomiting, constipation, diarrhea Genitourinary: Denies urinary symptoms including dysuria Musculoskeletal: Denies weakness, muscle aches/pain, joint aches/pain Neurological: Denies headache, numbness, tingling, focal weakness Physical Exam Physical Exam: General: Grossly A&O. NAD. Cooperative. HEENT: Atraumatic, normocephalic. EOMI Pulm: CTAB. -wheezes, -rales, -rhonchi. No respiratory distress. Cardiac: RRR, -mrg. Radial pulses intact and symmetrical. Abdominal: Nontender, nondistended, soft. Results & Data Results & Data ([facility]) Vital Signs (Past 12 Hours) Vital Signs Temp Pulse Pulse Resp BP Pulse Ox 10/13/20 03:02 36.5 C 73 19 139/69 93 10/13/20 00:37 92 10/12/20 23:28 91 H 10/12/20 22:31 36.5 C 81 19 131/76 92 10/12/20 20:06 18 10/12/20 19:22 36.6 C 81 18 135/70 96 Resident Activity Tracking Resident Involvement: Resident Care Provided Care Provided: Adult Hospital Medicine
[2020-10-13 07:12] LABS: Hematocrit (blood only) 40.1 % (42-52); Hemoglobin 14.2 g/dL (14.0-18.0); Immature Granulocytes # (auto) 0.03 K/uL (0.00-0.02); Immature Granulocytes % (auto) 0.2 %; Lymphocytes # (auto) 1.19 K/uL (1.2-3.4); Lymphocytes % (auto) 8.3 %; Mean Corpuscular Hemoglobin 32.1 pg (25-34); Mean Corpuscular Hgb Conc 35.4 g/dL (32-36); Mean Corpuscular Volume 90.7 fL (80-100); Mean Platelet Volume 8.8 fL (7.4-10.4); Monocytes # (auto) 1.09 K/uL (0.11-0.59); Monocytes % (auto) 7.6 %; Neutrophils # (auto) 12.04 K/uL (1.4-6.5); Neutrophils % (auto) 83.9 %; Platelet Count 252 K/uL (130-400); RDW Coefficient of Variation 13.6 % (11.5-14.5); RDW Standard Deviation 44.6 fL (36.4-46.3); Red Blood Count 4.42 M/uL (4.7-6.1); White Blood Count 14.35 K/uL (4.8-10.8)
[2020-10-13] MEDS: ALBUT/IPRATROP 3MG/0.5MG NEB 3 ML VIAL NEB SCH ×3 (07:18→14:29)
[2020-10-13 07:36] LABS: Albumin Level 3.4 gm/dl (3.4-5.0); BUN Creatinine Ratio 18.3 (10-20); Calcium 8.4 mg/dl (8.5-10.1); Creatinine Clr Calc Pharmacy 90.5 ml/min; Est GFR (African American) 104.7; Est GFR (Non-African American) 90.4; Potassium 4.2 mmol/L (3.5-5.1)
[2020-10-13 07:39] LABS: Bilirubin,Total 1.1 mg/dl (0.2-1); Globulin 3.4 gm/dl (2.5-4.0); Total Protein 6.8 gm/dl (6.4-8.2)
[2020-10-13] MEDS ORDERED: predniSONE 20 MG TAB PO SCH (09:00)
[2020-10-13] MEDS ORDERED: AZITHROMYCIN 250 MG TAB PO SCH (09:00)
[2020-10-13] MEDS: DOXAZOSIN MESYLATE 1 MG TAB PO SCH (09:18)
[2020-10-13] MEDS: guaiFENesin 600 MG TABCR PO SCH (09:19)
[2020-10-13] MEDS: ROSUVASTATIN CALCIUM 5 MG TAB PO SCH (09:19)
[2020-10-13] MEDS: HEPARIN SOD 5,000 UNIT/0.5 ML VIAL SQ SCH (09:23)
[2020-10-13] MEDS: TRIAMCINOLONE ACET 0.1% CR 15 GM TUBE TOP SCH (09:26)
--- NOTE | 2020-10-13 18:53 | Discharge Summary ---
Date of Service October 13, 2020 Admission HPI Per Admitting Provider The patient is a 65-year-old male with a past medical history including asthma, renal cyst, mixed conductive and sensorineural hearing loss of left ear with restricted hearing of right ear, internal hemorrhoids, BPH with LUTS, COPD exacerbation, hyperlipidemia, acute respiratory failure, tobacco abuse and hyperlipidemia. The patient reports that he has been without his inhalers recently, and presents with symptoms as noted above. Admission Exam Per Admitting Provider The patient is awake, alert and oriented 3, well developed and well nourished, normocephalic and atraumatic, lying in bed and in no acute distress. HEENT--PERRL, EOMI, mucous membranes and oropharynx normal. Neck--supple. No JVD. No bruits. Thyroid normal, trachea midline, no adenopathy. Heart--normal S1 and S2. No murmurs, rubs or gallops. Lungs--decreased breath sounds throughout. No respiratory distress, no accessory muscle use. Abdomen--normal bowel sounds and soft. Nontender. Mildly distended. Mildly tympanic Extremities--no cyanosis or clubbing. No edema. Dermatologic--normal skin turgor, normal color, no abnormal lymph nodes, no rash. Neurologic--cranial nerves II through XII grossly intact. Rheumatologic--normal range of motion. Psychiatric--normal affect. Principal Diagnosis COPD exacerbation Discharge Exam General: Grossly A&O. NAD. Cooperative. HEENT: Atraumatic, normocephalic. Pulm: Mild inspiratory coarseness. No end expiratory wheezes. No respiratory distress. Cardiac: RRR, -mrg. No LE edema. Abdominal: Nontender, soft. Discharge Data Allergies Allergy/AdvReac Type Severity Reaction Status Date / Time atorvastatin Allergy Mild RASH Verified 10/10/20 23:14 Consultations 10/10/20 23:01 ED Decision to Admit Stat Ordered Studies 10/10 cxr: pulmonary emphysema. No active process. Hospital Course (1) COPD exacerbation: 65 y/o M w/ hx of COPD, internal hemorrhoids, BPH, and former tobacco use who presented w/ COPD exacerbation. COPD exacerbation, resolved - IV methylpred 40 TID on admission. transitioned to PO prednisone. Taper upon dispo will be 3 days of 60 mg, 3 days of 40 mg, and 3 days of 20 mg. - completed 3 days of IV azithromycin. Will complete 4 days of PO azithromycin upon discharge. - required ~2L NC this admission, but weaned to O2 - afebrile this admission - leukocytosis 15.73->8.63->17.79->14.35 - initial exacerbation was precipitated by missing 1 week of Breo Ellipta. Case management reconfirmed that prescription is available at pharmacy. - f/u w/ pulmonology as outpatient. f/u w/ PCP in 1-2 weeks. Abdominal distention - chronic, upon records review. Had CT abd in 08/2020 for this complaint, no acute process, no ascites BPH - Continue doxazosin 1 mg every morning hyperlipidemia - continue rosuvastatin 5 qam code: full (2) BPH with obstruction/lower urinary tract symptoms: (3) Hyperlipidemia: Total Time Total Time Spent Total Time Spent (In Minutes): 25 Discharge Plan Discharge Items Patient Disposition: Hospice - Home Reason For Visit: COPD EXACERBATION Discharge Diagnosis: COPD exacerbation Activity: Per Instructions section Non-emergency contact: Primary Care Provider Call non-emergency contact if: you have any medication questions and you have a fever Follow-up/Referrals: Anup Khan MD [Primary Care Provider] - 10/19/20 11:30 am () Nicolas Kauffman MD [Physician] - 11/04/20 9:15 am () Diet: Regular Addtl Attending Provider Instructions: Hi Mr. Omalley. You were admitted to [facility] from 10/10/20-10/13/20 for COPD exacerbation. You were treated w/ nebulizer treatments, an IV antibiotic called azithromycin, and IV steroids. You were then transitioned to oral azithromycin and oral steroids. For the azithromycin, take 500 mg every morning for 4 days, from 10/14/20- 10/17/20. For the prednisone, starting on 10/13/20, take 60 mg a day for 3 days, then 40 mg a day for 3 days, then 20 mg a day for 3 days. Take the medicine in the morning. Your prescriptions for the Breo Ellipta and Incuse Ellipta are waiting at the pharmacy. Follow up with your lung doctor, Dr. Kauffman, and your primary care doctor, Dr. Khan, in 1-2 weeks. An appointment will be made for you, but please call to confirm if you do not hear back. If you develop any new or worsening symptoms including fever, chills, sweats, chest pain, chest pressure, difficulty breathing, uncontrolled nausea/vomiting, rash, wheezing, passing out or nearly passing out, bleeding, black/bloody bowel movements, or other new or concerning symptoms please call your primary care physician, or call 911 for re-evaluation in the emergency department if you are very concerned. Pending Studies at Discharge: No Stand-Alone Forms: My [facility] Medications and DC Order Prescriptions: New azithromycin 250 mg Tablet 500 mg PO QAM 4 Days Qty: 8 RF: 0 prednisone 20 mg tablet 20 mg PO .complex Qty: 18 RF: 0 Continued rosuvastatin [Crestor] 5 mg tablet 5 mg PO QAM Qty: 30 RF: 5 Breo Ellipta 100-25 mcg/dose blister with device 1 inh INH QAM Qty: 60 RF: 5 Incruse Ellipta 62.5 mcg/actuation blister with device 1 inh INH DAILY@1500 Qty: 30 RF: 5 triamcinolone acetonide 0.1 % cream 1 applic topical DAILY Qty: 30 RF: 1 clotrimazole-betamethasone 1-0.05 % cream 1 applic topical BID 14 Days Qty: 45 RF: 2 albuterol sulfate 90 mcg/actuation HFA aerosol inhaler 2 puff inhalation Q6H PRN (Reason: Shortness Of Breath Or Wheezing) Qty: 18 RF: 3 doxazosin 1 mg tablet 1 mg PO QAM RF: 0 Discontinued prednisone 10 mg tablet 10 mg PO .COMPLEX Qty: 42 RF: 0 Discharge Orders: Discharge Order (Routine); Ordered 10/13/20 Ordered By: Jose Reddy Admission Data Admit Date/Time: 10/10/20 23:38 Attending Provider: Luis Manuel Briscoe Admit Provider: Albin Wright Primary Care Provider: Anup Khan Other Providers: Albin Wright Other Interventions: Discharge Summary Assessment (RN) Last Done: 10/13/20 13:44 Supervising Physician Co-Signing Physician Notes Attending Attestation I also saw the patient confirmed morales portions of the history and physical examination. I agree with the impression and plan as noted in the resident documentation, with exceptions as noted below. When seen this morning, the patient is seated in bed. He feels that his breathing is back to baseline Exam Upon exam, he is afebrile and hemodynamically stable. Lungs with good air movement bilaterally, and expiratory wheeze which I suspect is his baseline. Laboratory White blood cell count 14.35 (he is on steroids) Hemoglobin 14.2 BUN 16, creatinine 0.86 Imaging Chest x-ray done 10/10 shows findings consistent with emphysema. No infiltrate appreciated. 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
== END 2020-10-13 15:00 | disposition hospice, home (50) | DRG 190 ==
LOC: ED 21:56 → 2N 23:38 → SUATTDRO 23:38 → 2N 10-11 00:55

== ENCOUNTER 2021-05-23 16:49 | Observation (INO) ==
[2021-05-23] MEDS ORDERED: predniSONE 50 MG TAB PO ONE (19:09)
[2021-05-23] MEDS ORDERED: ALBUT/IPRATROP 3MG/0.5MG NEB 3 ML VIAL NEB STA ×2 (19:09→20:03)
--- NOTE | 2021-05-23 19:16 | XRay Report ---
SINGLE VIEW CHEST CLINICAL HISTORY: Dyspnea. COPD FINDINGS: An AP, portable, upright chest radiograph is compared to study dated 10/10/2020 and correlat ed with chest CT dated 05/11/2020. The heart is enlarged noting atherosclerotic calcification of the thoracic aorta. The pulmonary vasculature is noncongested. Emphysema and chronic interstitial thicken ing is similar to previous. Scarring/atelectasis is noted at the lung bases. No airspace consolidatio n or large pleural effusion is identified. No pneumothorax is seen. The skeletal structures are osteo penic. The bony thorax is grossly intact. IMPRESSION: Cardiomegaly and emphysema with no acute cardiopulmonary abnormality. ACT 112: Negative or not required by law. Electronically signed by: Roberto Butler M.D. 05/23/2021 7:14 PM
--- NOTE | 2021-05-23 19:32 | Emergency Department Note ---
History of Present Illness General Chief Complaint: Respiratory Problems Stated Complaint: COPD FLARE, HARD TIME BREATHING, WHEEZING Time Seen by Provider: 05/23/21 19:04 History of Present Illness Provider Complaint: shortness of breath Onset (ago): day(s) (1) Consistency/Duration: + progressively worsening Relieved By: + nothing Exacerbated By: + exertion and + coughing Known history of: COPD Associated symptoms: + cough, + wheezing and + sputum production; no chest pain, no pain with inspiration, no fever, no orthopnea, no lower extremity pain, no polyuria, no paresthesias, no palpitations, no hemoptysis, no diaphoresis, no nausea/vomiting, no syncope, no abdominal pain, no rash, no sense of impending doom, no chest congestion, no dizziness or no lightheadedness Treatment prior to arrival: bronchodilator HPI Narrative: Patient reports his symptoms feel similar to his prior COPD exa cerbations that he gets every year at this time. Patient reports no chest pain. Patient is vaccine against COVID-19. Home Medications Medication Instructions Recorded Confirmed Type albuterol sulfate 90 mcg/actuation 2 puff INHALATION Q6H PRN #18 g 11/04/20 05/23/21 Rx aerosol inhaler umeclidinium 62.5 mcg/actuation 1 inh INH DAILY@1500 #30 ea 11/04/20 05/23/21 Rx blister powder for inhalation (Incruse Ellipta) rosuvastatin 5 mg tablet (Crestor) 5 mg PO QAM #90 tab 01/26/21 05/23/21 Rx fluticasone furoate 100 1 inh INH QAM #60 ea 05/05/21 05/23/21 Rx mcg-vilanterol 25 mcg/dose inhalation powder (Breo Ellipta) calcipotriene 0.005 % topical 1 applic TOPICAL BID #60 g 05/16/21 05/23/21 Rx cream (Dovonex) Allergies Allergy/AdvReac Type Severity Reaction Status Date / Time atorvastatin Allergy Mild RASH Verified 04/21/21 15:51 Past Med/Surg History Medical History Acute respiratory failure Acute respiratory failure Arthritis Asthma exacerbation in COPD Chronic obstructive pulmonary disease COPD with emphysema Hearing deficit Hyperlipidemia Internal hemorrhoids Lesion of right [place] kidney Leukocytosis Mixed conductive and sensorineural hearing loss of left ear with restricted hearing of right ear Pneumonia Postinflammatory hyperpigmentation Renal cyst Scoliosis Tympanosclerosis of both ears Weight loss Surgical History History of colonoscopy History of ear surgery RT/LEFT EAR SURGERY A CHILD History of incisional hernia repair (03/15/20) Laparoscopic Repair of Incarcerated Incisional Hernia with SurgiMesh, Lysis of Adhesions(Not Applicable) - Roland Higuera MD 03/15/20 History of inguinal hernia repair Right inguinal hernia repair 02/02/2016. Left laparoscopic inguinal hernia repair 05/23/2019. History of umbilical hernia repair incarcerated umbilical hernia repair for person over age 5 Family History Mother Breast cancer Unknown Breast cancer Brother Arthritis Cancer Father Alcohol abuse Cancer Sister Cancer Patient believes 1 sister had cervical cancer Denies family history of Ovarian cancer Prostate cancer Myocardial infarction Colorectal cancer Social History Smoking Status: Former smoker Age Started Using Tobacco: 6; Age Quit Using Tobacco: 64; packs per day: 0.5; Second Hand Exposure: No; Hx Alcohol Use: No Hx Substance Use: No Preferred Language: Iranian Communication Ability: Effective Visual Impairment: No Limitations Hearing Ability: Hard of Hearing 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 Beliefs That Will Affect Care: None marital status: Single Current Living Situation: Other Current Living Situation Comment: marisabel current occupational status: retired 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 How many Children do You have: 4 Feels Safe at Home: Yes Childhood Exposure to Second-Hand Smoke: Yes caffeine: Yes (coffee) Dental Care, Regularly: No Physical Activity Frequency: Daily Physical Activity Frequency Comment: walk Seatbelt Use: never Sunscreen Use: No Review of Systems A total of 10 systems reviewed and were otherwise negative Physical Exam Vital Signs: Vital Signs - 24 hr 05/23/21 16:57 05/23/21 19:43 05/23/21 20:30 Temperature 36.6 C Temperature Source Temporal Artery Sc an Pulse Rate 87 Pulse Rate [Apical ] 75 82 Respiratory Rate 22 25 H 21 Respiratory Effort / Characteristics Spontaneous Pursed Lip Short of [place] th Spontaneous Blood Pressure 166/102 H Blood Pressure Fara n 123 Pulse Oximetry 94 96 99 Oxygen Delivery Me thod Room Air Nebulizer Oxygen Flow Rate 8 Fraction of Inspir ed Oxygen 21 Sepsis Recent Feve r Within 48 Hours No Sepsis New/Unexpla ined Change in Men chaitanya Status No Sepsis Action Take n by Nursing No Action Required Physical Exam: Physical Exam GENERAL: He is oriented to person, place, and time. He appears well-developed and well-nourished. He does not appear distressed. HENT: Exam performed. - Head: Normocephalic and atraumatic. - Right Ear: External ear normal. No mastoid tenderness. - Left Ear: External ear normal. No mastoid tenderness. - Mouth/Throat: The oropharynx is clear and moist. No trismus in the jaw. No dental abscesses or uvula swelling. No oropharyngeal exudate or tonsillar absc esses. EYES: Conjunctivae and EOM are normal. Pupils are equal, round, and reactive to light. Right eye exhibits no discharge. Left eye exhibits no discharge. No scleral icterus. NECK: Normal range of motion. Neck supple. No JVD present. No spinous process tenderness present. No carotid bruit present. No rigidity. No tracheal deviation and normal range of motion present. No Brudzinski's sign and no Kernig's sign noted. CV: Normal rate, regular rhythm, normal heart sounds and intact distal pulses. There is no peripheral edema. Palpable radial pulses bue. PULM/CHEST: Bilateral expiratory wheezes. ABD: The abdomen is soft. Bowel sounds are normal. He has no distension. No mass is present. There is no tenderness. There is no rebound, no guarding, no Mcknight's sign and no tenderness at McBurney's point. Rovsig negative. MUSC/SKEL: Normal range of motion. There is no peripheral edema, tenderness or deformity. LYMPH: No cervical adenopathy. NEURO: He is alert and oriented to person, place, and time. He has normal strength. No cranial nerve deficit or sensory deficit. Coordination and gait no rmal. GCS eye subscore is 4. GCS verbal subscore is 5. GCS motor subscore is 6. Cerebellar tests wnl. SKIN: Skin is warm and dry. He is not diaphoretic. PSYCH: He has a normal mood and affect. Behavior is normal. Judgment and thought content normal. Course Course 1903: The patient was evaluated in room C1. A complete history and physical exam was performed Cardiac monitoring: An order was placed for continuous cardiac monitoring. The monitor shows a rate of 90 with sinus rhythm 2000: On reassessment patient reports he still feels short of breath. Recitation lungs shows bilateral wheezes that are increased. Patient be ordered additional DuoNeb. 2100: After third DuoNeb treatment the patient still having a lot of wheezing. Patient states he still feels short of breath. Patient will be admitted to the [facility] Hospitalist team for COPD exacerbation. Discussed case with Dr. Ramirez who will evaluate the patient. Administered Medications Discontinued Medications Albuterol (Albut/Ipratrop 3mg/0.5mg Neb 3 Ml Vial) 3 ml NEB NOW STA Stop: 05/23/21 19:10 Last Admin: 05/23/21 19:39 Dose: 3 ml Documented by: [id number] Admin: 05/23/21 19:39 Dose: 3 ml Documented by: [id number] Albuterol (Albut/Ipratrop 3mg/0.5mg Neb 3 Ml Vial) 3 ml NEB NOW STA Stop: 05/23/21 19:10 Last Admin: 05/23/21 19:40 Dose: Not Given Documented by: [id number] Albuterol (Albut/Ipratrop 3mg/0.5mg Neb 3 Ml Vial) 3 ml NEB NOW STA Stop: 05/23/21 20:04 Last Admin: 05/23/21 20:30 Dose: 3 ml Documented by: [id number] Prednisone (Prednisone 50 Mg Tab) 50 mg PO ONCE ONE Stop: 05/23/21 19:10 Last Admin: 05/23/21 19:18 Dose: 50 mg Documented by: [id number] Medical Decision Making Laboratory Data Result diagrams: 05/23/21 20:25 05/23/21 20:25 Lab Results 05/23/21 05/23/21 05/23/21 Range/Units 20:25 20:25 20:25 WBC 8.45 (4.8-10.8) K/uL RBC 5.00 (4.7-6.1) M/uL Hgb 15.9 (14.0-18.0) g/dL Hct 44.5 (42-52) % MCV 89.0 (80-100) fL MCH 31.8 (25-34) pg MCHC 35.7 (32-36) g/dL RDW Std Deviation 44.0 (36.4-46.3) fL RDW Coeff of Sandra 13.5 (11.5-14.5) % Plt Count 253 (130-400) K/uL MPV 8.8 (7.4-10.4) fL Immature Gran % (Auto) 0.1 % Neut % (Auto) 59.3 % Lymph % (Auto) 27.0 % Barry % (Auto) 10.9 % Eos % (Auto) 2.1 % Baso % (Auto) 0.6 % Neut # (Auto) 5.01 (1.4-6.5) K/uL Lymph # (Auto) 2.28 (1.2-3.4) K/uL Barry # (Auto) 0.92 H (0.11-0.59) K/uL Eos # (Auto) 0.18 (0-0.5) K/uL Baso # (Auto) 0.05 (0-0.2) K/uL Immature Gran # (Auto) 0.01 (0.00-0.02) K/uL VBG pH 7.39 (7.36-7.41) VBG pCO2 43 (38-50) mmHg VBG pO2 46 mmHg VBG HCO3 26 mmol/L VBG O2 Saturation 81.5 % VBG Base Excess 0.5 mEq/L Barometric Pressure 737.3 mm/Hg Sodium 140 (136-145) mmol/L Potassium 4.1 (3.5-5.1) mmol/L Chloride 110 H (98-107) mmol/L Carbon Dioxide 23 (21-32) mmol/L Anion Gap 7.0 (3-11) BUN 11 (7-18) mg/dl Creatinine 0.87 (0.6-1.4) mg/dl Est Cr Clr Drug Dosing 90.1 ml/min Est GFR ( Amer) 104.2 ml/min Est GFR (Non-Af Amer) 89.9 ml/min BUN/Creatinine Ratio 12.9 (10-20) Glucose 108 H (70-99) mg/dl Calcium 9.4 (8.5-10.1) mg/dl COVID-19 Eval Order SARS-CoV-2 (PCR) (Negative) 05/23/21 05/23/21 Range/Units 20:55 20:55 WBC (4.8-10.8) K/uL RBC (4.7-6.1) M/uL Hgb (14.0-18.0) g/dL Hct (42-52) % MCV (80-100) fL MCH (25-34) pg MCHC (32-36) g/dL RDW Std Deviation (36.4-46.3) fL RDW Coeff of Sandra (11.5-14.5) % Plt Count (130-400) K/uL MPV (7.4-10.4) fL Immature Gran % (Auto) % Neut % (Auto) % Lymph % (Auto) % Barry % (Auto) % Eos % (Auto) % Baso % (Auto) % Neut # (Auto) (1.4-6.5) K/uL Lymph # (Auto) (1.2-3.4) K/uL Barry # (Auto) (0.11-0.59) K/uL Eos # (Auto) (0-0.5) K/uL Baso # (Auto) (0-0.2) K/uL Immature Gran # (Auto) (0.00-0.02) K/uL VBG pH (7.36-7.41) VBG pCO2 (38-50) mmHg VBG pO2 mmHg VBG HCO3 mmol/L VBG O2 Saturation % VBG Base Excess mEq/L Barometric Pressure mm/Hg Sodium (136-145) mmol/L Potassium (3.5-5.1) mmol/L Chloride (98-107) mmol/L Carbon Dioxide (21-32) mmol/L Anion Gap (3-11) BUN (7-18) mg/dl Creatinine (0.6-1.4) mg/dl Est Cr Clr Drug Dosing ml/min Est GFR ( Amer) ml/min Est GFR (Non-Af Amer) ml/min BUN/Creatinine Ratio (10-20) Glucose (70-99) mg/dl Calcium (8.5-10.1) mg/dl COVID-19 Eval Order Covid19 at [facility] SARS-CoV-2 (PCR) NEGATIVE (Negative) Imaging Data Radiologist's Impression: Chest X-Ray 05/23/21 17:00 SINGLE VIEW CHEST CLINICAL HISTORY: Dyspnea. COPD FINDINGS: An AP, portable, upright chest radiograph is compared to study dated 10/10/2020 and correlated with chest CT dated 05/11/2020. The heart is enlarged noting atherosclerotic calcification of the thoracic aorta. The pulmonary vasculature is noncongested. Emphysema and chronic interstitial thickening is similar to previous. Scarring/atelectasis is noted at the lung bases. No a irspace consolidation or large pleural effusion is identified. No pneumothorax is seen. The skeletal structures are osteopenic. The bony thorax is grossly intact. IMPRESSION: Cardiomegaly and emphysema with no acute cardiopulmonary abnormality. ACT 112: Negative or not required by law. Electronically signed by: Roberto Butler M.D. 05/23/2021 7:14 PM ECG Data Interpretation: Sinus rhythm with rate of 70. CA QRS QTC intervals are within normal limits. No ST elevation or ST depression. [facility] Narrative 1904: The patient was evaluated in room C1. A complete history and physical exam was performed Cardiac monitoring: An order was placed for continuous cardiac monitoring. The monitor shows a rate of 90 with sinus rhythm 2000: On reassessment patient reports he still feels short of breath. Recitation lungs shows bilateral wheezes that are increased. Patient be ordered additional DuoNeb. 2100: After third DuoNeb treatment the patient still having a lot of wheezing. Patient states he still feels short of breath. Patient will be admitted to the [facility] hospitalist team for COPD exacerbation. Discussed case with Dr. Ramirez who will evaluate the patient. Impression & Plan COPD exacerbation Discharge Plan Visit Data Chief Complaint: Respiratory Problems Stated Complaint: COPD FLARE, HARD TIME BREATHING, WHEEZING ED Provider: García Barber Discharge Problem: COPD exacerbation Patient Disposition: Being Evaluated by Hospitalist Forms Stand Alone Forms: My [facility] Prescriptions Prescriptions: No Action rosuvastatin [Crestor] 5 mg tablet 5 mg PO QAM Qty: 90 RF: 3 Breo Ellipta 100-25 mcg/dose blister with device 1 inh INH QAM Qty: 60 RF: 5 calcipotriene [Dovonex] 0.005 % cream 1 applic topical BID Qty: 60 RF: 5 Incruse Ellipta 62.5 mcg/actuation blister with device 1 inh INH DAILY@1500 Qty: 30 RF: 5 albuterol sulfate 90 mcg/actuation HFA aerosol inhaler 2 puff inhalation Q6H PRN (Reason: Shortness Of Breath Or Wheezing) Qty: 18 RF: 3 Referrals Referrals: Layo Khan MD [Primary Care Provider] -
[2021-05-23] MEDS: ALBUT/IPRATROP 3MG/0.5MG NEB 3 ML VIAL NEB STA (19:39)
[2021-05-23 20:35] LABS: Basophils # (auto) 0.05 K/uL (0-0.2); Basophils % (auto) 0.6 %; Eosinophils # (auto) 0.18 K/uL (0-0.5); Eosinophils % (auto) 2.1 %; Hematocrit (blood only) 44.5 % (42-52); Hemoglobin 15.9 g/dL (14.0-18.0); Immature Granulocytes # (auto) 0.01 K/uL (0.00-0.02); Immature Granulocytes % (auto) 0.1 %; Lymphocytes # (auto) 2.28 K/uL (1.2-3.4); Mean Corpuscular Hemoglobin 31.8 pg (25-34); Mean Corpuscular Hgb Conc 35.7 g/dL (32-36); Mean Platelet Volume 8.8 fL (7.4-10.4); Monocytes # (auto) 0.92 K/uL (0.11-0.59); Monocytes % (auto) 10.9 %; Neutrophils # (auto) 5.01 K/uL (1.4-6.5); Neutrophils % (auto) 59.3 %; Platelet Count 253 K/uL (130-400); RDW Coefficient of Variation 13.5 % (11.5-14.5); White Blood Count 8.45 K/uL (4.8-10.8)
[2021-05-23 20:36] LABS: Base Excess VBG 0.5 mEq/L; Oxygen Saturation VBG 81.5 %; pH VBG 7.39 (7.36-7.41)
[2021-05-23 20:53] LABS: BUN Creatinine Ratio 12.9 (10-20); Calcium 9.4 mg/dl (8.5-10.1); Creatinine Clr Calc Pharmacy 90.1 ml/min; Est GFR (African American) 104.2 ml/min; Est GFR (Non-African American) 89.9 ml/min; Potassium 4.1 mmol/L (3.5-5.1)
--- NOTE | 2021-05-23 22:05 | History & Physical Report ---
Date of Service May 23, 2021 Assessment & Plan (1) COPD exacerbation: Plan: Mr. Omalley is a 65 yo gentleman with a PMHx of COPD (gold class C/D) who presents for acute worsening in breathing with audible wheezing and sputum production. - etiology of acute exacerbation: - patient denied preceding URI. - Non-smoker. - Reports compliance with home inhalers (there was some confusion as to whether he had gone without his Breo for the past few days, but this appears to have been the cause of his previous COPD exacerbation, not the current; I confirmed the fill history of his inhalers and his breo was picked up on 05/05/21). - Perhaps due to inhalation of cool air - azithromycin 500mg IV for 3 days - Methylprednisone 40gm IV q8; taper as appropriate - Nebs Q6h scheduled - mucinex 600mg BID - continue home inhalers (Breo + Incruse); patient does request the two inhaler prescription be synced (ie so he can fill them both at the same time in the future) - supplemental oxygen as needed - consider ordering a home nebulizer unit for patient - patient would likely benefit from home sleep study as an outpatient to evaluate for obstructive sleep apnea (2) Hyperlipidemia: Plan: - continue home dose statin DVT ppx: Lovenox Diet: heart healthy Dispo: Med/Surg Code: DNR/DNI, I discussed with patient History of Present Illness Primary Care Provider: Layo Khan MD Mr. Omalley is a 65 yo gentleman with a PMHx of COPD who came to the ED for evaluation of worsening breathing over the past 3 days. He reports experiencing dyspnea on mild exertion, cough with increased sputum production and audible wheezing. These are the same symptoms he experienced during his last admission for a COPD exacerbation in September 2020. He has no baseline oxygen requirement. He does follow with [facility] -at his last visit, pulmonary rehab w as discused. He denies any preceding URI symptoms. He states he is compliant with his home inhaler regimen (Breo and Incruse) and denies any missed doses. He does not have a nebulizer at home, but has been using his albuterol rescue inhaler regularly over the past few days. He does say that his breathing tends to get worse when the air gets colder. He denies any fever/chills, lightheadedness, or chest pain. He reports to snoring often at night - never been tested for NAOMI. He was vaccinated against COVID 19. Social Hx: 80 pack year history of cigarette smoke; quit in 11/2019. No etoh. In the ED, he was afebrile with normal HP. BP mildly elevated to 166/102. He was saturating 99% during a nebulizer treatment. His CMP, CMP and VBG were all normal. His COVID 19 test was negative. His CXR showed evidence of chronic emphysematous findings, but no acute changes. He was given a 50mg oral dose of prednisone and 3 nebulizer treatments. Allergies Allergy/AdvReac Type Severity Reaction Status Date / Time atorvastatin Allergy Mild RASH Verified 04/21/21 15:51 Home Medications Medication Instructions Recorded Confirmed Type albuterol sulfate 90 mcg/actuation 2 puff INHALATION Q6H PRN #18 g 11/04/20 05/23/21 Rx aerosol inhaler umeclidinium 62.5 mcg/actuation 1 inh INH DAILY@1500 #30 ea 11/04/20 05/23/21 Rx blister powder for inhalation (Incruse Ellipta) rosuvastatin 5 mg tablet (Crestor) 5 mg PO QAM #90 tab 01/26/21 05/23/21 Rx fluticasone furoate 100 1 inh INH QAM #60 ea 05/05/21 05/23/21 Rx mcg-vilanterol 25 mcg/dose inhalation powder (Breo Ellipta) calcipotriene 0.005 % topical 1 applic TOPICAL BID #60 g 05/16/21 05/23/21 Rx cream (Dovonex) azithromycin 250 mg tablet 250 mg PO DAILY #4 tab 05/24/21 Rx prednisone 10 mg tablet 10 mg PO DAILY #20 tab 05/24/21 Rx Past Med/Surg History Medical History Acute respiratory failure Acute respiratory failure Arthritis Asthma exacerbation in COPD Chronic obstructive pulmonary disease COPD with emphysema Hearing deficit Hyperlipidemia Internal hemorrhoids Lesion of right [place] kidney Leukocytosis Mixed conductive and sensorineural hearing loss of left ear with restricted hearing of right ear Pneumonia Postinflammatory hyperpigmentation Renal cyst Scoliosis Tympanosclerosis of both ears Weight loss Surgical History History of colonoscopy History of ear surgery RT/LEFT EAR SURGERY A CHILD History of incisional hernia repair (03/15/20) Laparoscopic Repair of Incarcerated Incisional Hernia with SurgiMesh, Lysis of Adhesions(Not Applicable) - Roland Higuera MD 03/15/20 History of inguinal hernia repair Right inguinal hernia repair 02/02/2016. Left laparoscopic inguinal hernia repair 05/23/2019. History of umbilical hernia repair incarcerated umbilical hernia repair for person over age 5 Family History Mother Breast cancer Unknown Breast cancer Brother Arthritis Cancer Father Alcohol abuse Cancer Sister Cancer Patient believes 1 sister had cervical cancer Denies family history of Ovarian cancer Prostate cancer Myocardial infarction Colorectal cancer Social History Smoking Status: Former smoker Age Started Using Tobacco: 6; Age Quit Using Tobacco: 64; packs per day: 0.5; Second Hand Exposure: No; Hx Alcohol Use: No Hx Substance Use: No Preferred Language: Kyrgyz Communication Ability: Effective Visual Impairment: No Limitations Hearing Ability: Hard of Hearing Rivet Thrower Required: No Beliefs That Will Affect Care: None marital status: Single Current Living Situation: Other Current Living Situation Comment: With friend Marga current occupational status: 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 How many Children do You have: 4 Feels Safe at Home: Yes Childhood Exposure to Second-Hand Smoke: Yes caffeine: Yes (coffee) Dental Care, Regularly: No Physical Activity Frequency: Daily Physical Activity Frequency Comment: walk Seatbelt Use: never Sunscreen Use: No Assistive Devices: Glasses Review of Systems Review of Systems: All systems reviewed & are unremarkable except as noted in HPI & below Physical Exam Constitutional: WD/WN, vitals as above + obese and cooperative; no acute distress Eyes: + anicteric sclerae ENMT: external ear and nose normal, oropharynx normal Neck: trachea midline Respiratory: normal respiratory effort; no respiratory distress, no labored breathing and no cough Auscultation: + wheezes (expiratory, b/l lung bases) Cardiovascular: RRR, no murmur, no edema Heart Sounds: normal S1 and normal S2 Extremities: no pedal edema Gastrointestinal (Abdomen): normal bowel sounds, soft, nontender, no hepatosplenomegaly Musculoskeletal: Head/Neck/Chest: normocephalic and head atraumatic + large neck diameter Skin: no rashes, warm and dry Psychiatric: A+Ox3, euthymic affect Results & Data Results & Data ([facility]) Vital Signs (Past 12 Hours) Vital Signs Temp Pulse Pulse Resp BP Pulse Ox 05/23/21 20:30 82 21 99 05/23/21 19:43 75 25 H 96 05/23/21 16:57 36.6 C 87 22 166/102 H 94 Supervising Physician Co-Signing Physician Notes Patient seen and examined, chart reviewed, case discussed with Dr. Rodas and I agree with her assessment and plan as documented above. In brief, patient is a 65yo male with history of COPD class C/D presenting with progressive dyspnea, wheezing most likely secondary to acute exacerbation of COPD. On exam he is afebrile, HD stable, NAD Skin - warm, dry, intact, no rashes/lesions HEENT - NC/AT, PERRL Heart - +S1/S2, regular, no m/r/g Lungs - diminished breath sounds, diffuse end-expiratory wheezing Abd - +BS, soft, NT/ND Ext - No edema Labs and images reviewed Patient with stable respiratory status, improved in ER [place] that he was too short of breath to return home at this time Assessment/Plan - Tx for acute exacerbation of COPD with Azithromycin, Solumedrol, Nebs, Mucinex Remainder of plan as above Resident Activity Tracking Resident Involvement: Resident Care Provided Care Provided: Adult Hospital Medicine
[2021-05-23] MEDS ORDERED: ACETAMINOPHEN 325 MG TAB PO PRN (23:16)
[2021-05-23] MEDS ORDERED: ONDANSETRON INJ 2 MG/ML 2 ML VIAL IV PRN (23:16)
[2021-05-23] MEDS ORDERED: MELATONIN 3 MG TAB PO PRN (23:16)
[2021-05-23] MEDS ORDERED: ALBUT/IPRATROP 3MG/0.5MG NEB 3 ML VIAL NEB SCH (23:16)
[2021-05-23] MEDS ORDERED: POLYETHYLENE (MIRALAX) 17 GM PACK PO PRN (23:16)
[2021-05-24] MEDS ORDERED: AZITHROMYCIN 500 MG in DEXTROSE 5% 250 ML IV SCH
[2021-05-24] MEDS: ALBUT/IPRATROP 3MG/0.5MG NEB 3 ML VIAL NEB SCH ×3 (00:25→13:05)
[2021-05-24] MEDS: methylPREDNISolone 40 MG in SYRINGE 0 ML IV SCH ×2 (06:15→14:43)
[2021-05-24] MEDS ORDERED: ROSUVASTATIN CALCIUM 5 MG TAB PO SCH (09:00)
[2021-05-24] MEDS ORDERED: ENOXAPARIN INJ 40 MG/0.4 ML SYR SQ SCH (09:00)
[2021-05-24] MEDS ORDERED: guaiFENesin 600 MG TABCR PO SCH (09:00)
[2021-05-24] MEDS ORDERED: FLUTICASONE/VILANTEROL 100/25MCG 14 PUFFS/INHALER INH SCH (09:00)
[2021-05-24] MEDS ORDERED: LORATADINE 10 MG TAB PO SCH (09:00)
--- NOTE | 2021-05-24 10:54 | Electrocardiogram Report ---
Test Reason : Blood Pressure : / mmHG Vent. Rate : 070 BPM Atrial Rate : 070 BPM P-R Int : 156 ms QRS Dur : 088 ms QT Int : 382 ms P-R-T Axes : 002 -24 018 degrees QTc Int : 412 ms Normal sinus rhythm Normal ECG When compared with ECG of 10-OCT-2020 23:03, No significant change was found Confirmed by Layo Mendoza ([id number]) on 05/24/2021 10:54:19 AM Referred By: REFERRED SELF Confirmed By:Hira Mendoza
[2021-05-24] MEDS ORDERED: UMECLIDINIUM BROMIDE 62.5MCG/BLISTER 7 PUFFS/INHALER INH SCH (15:00)
--- NOTE | 2021-05-24 22:07 | Billing Data ---
Date of Service May 23, 2021 Coding Level of Care Code INT OBSERVATION CARE 50M LVL 2
[2021-05-25] MEDS ORDERED: methylPREDNISolone 40 MG in SYRINGE 0 ML IV SCH (09:00)
--- NOTE | 2021-05-27 09:14 | Discharge Summary ---
Date of Service May 24, 2021 Admission HPI Per Admitting Provider Mr. Omalley is a 65 yo gentleman with a PMHx of COPD who came to the ED for evaluation of worsening breathing over the past 3 days. He reports experiencing dyspnea on mild exertion, cough with increased sputum production and audible wheezing. These are the same symptoms he experienced during his last admission for a COPD exacerbation in September 2020. He has no baseline oxygen requirement. He does follow with [facility] -at his last visit, pulmonary rehab was discused. He denies any preceding URI symptoms. He states he is compliant with his home inhaler regimen (Breo and Incruse) and denies any missed doses. He does not have a nebulizer at home, but has been using his albuterol rescue inhaler regularly over the past few days. He does say that his breathing tends to get worse when the air gets colder. He denies any fever/chills, lightheadedness, or chest pain. He reports to snoring often at night - never been tested for NAOMI. He was vaccinated against COVID 19. Social Hx: 80 pack year history of cigarette smoke; quit in 11/2019. No etoh. In the ED, he was afebrile with normal HP. BP mildly elevated to 166/102. He was saturating 99% during a nebulizer treatment. His CMP, CMP and VBG were all normal. His COVID 19 test was negative. His CXR showed evidence of chronic emphysematous findings, but no acute changes. He was given a 50mg oral dose of prednisone and 3 nebulizer treatments. Principal Diagnosis COPD exacerbation Discharge Exam Constitutional: WD/WN, vitals as above + obese and cooperative; no acute distress Eyes: + anicteric sclerae ENMT: external ear and nose normal, oropharynx normal Neck: trachea midline Respiratory: normal respiratory effort; no respiratory distress, no labored breathing and no cough Auscultation:improved breath sounds Cardiovascular: RRR, no murmur, no edema Heart Sounds: normal S1 and normal S2 Extremities: no pedal edema Gastrointestinal (Abdomen): normal bowel sounds, soft, nontender, no hepatosplenomegaly Musculoskeletal: Head/Neck/Chest: normocephalic and head atraumatic + large neck diameter Skin: no rashes, warm and dry Psychiatric: A+Ox3, euthymic affect Discharge Data Allergies Allergy/AdvReac Type Severity Reaction Status Date / Time atorvastatin Allergy Mild RASH Verified 04/21/21 15:51 Consultations 05/23/21 21:00 ED Decision to Admit Stat Hospital Course (1) COPD exacerbation: Mr. Omalley is a 65 yo gentleman with a PMHx of COPD (gold class C/D) who presents for acute worsening in breathing with audible wheezing and sputum production. - etiology of acute exacerbation: - patient denied preceding URI. - Non-smoker. - Reports compliance with home inhalers (there was some confusion as to whether he had gone without his Breo for the past few days, but this appears to have been the cause of his previous COPD exacerbation, not the current; I confi rmed the fill history of his inhalers and his breo was picked up on 05/05/21). - Perhaps due to inhalation of cool air - azithromycin 500mg IV for 3 days - Methylprednisone 40gm IV q8; taper as appropriate - Nebs Q6h scheduled - mucinex 600mg BID - continue home inhalers (Breo + Incruse); patient does request the two inhaler prescription be synced (ie so he can fill them both at the same time in the future) - supplemental oxygen as needed - consider ordering a home nebulizer unit for patient - patient would likely benefit from home sleep study as an outpatient to evaluate for obstructive sleep apnea On day of discharge: patient improved, on room air. will discharge on azithromycin and prednisone. (2) Hyperlipidemia: - continue home dose statin Total Time Total Time Spent Total Time Spent (In Minutes): 32 Discharge Plan Discharge Items Patient Disposition: Home - Self-Care Reason For Visit: COPD EXACERBATION Discharge Diagnosis: COPD exacerbation Activity: Resume your previous activity Non-emergency contact: Primary Care Provider Call non-emergency contact if: you have any medication questions Follow-up/Referrals: Layo Khan MD [Primary Care Provider] - 06/01/21 11:00 am (Your appointment is with the physician assitant, Vilma Barrios. If you have any questions or need to change this appointment, please call [phone].) Diet: Regular Addtl Attending Provider Instructions: You have been hospitalized for an acute medical problem. During your stay at [facility], we have made an effort to correct the problem that brought you to the hospital while keeping you as comfortable as possible. Medications were used to bring your condition under control and your discharge instructions will include directions for any medications you should take after leaving the hospital. Please make sure you see your Primary Care Provider as part of your follow up plan. Pending Studies at Discharge: No Stand-Alone Forms: My [facility], Smoking Cessation Medications and DC Order Prescriptions: New prednisone 10 mg tablet 10 mg PO DAILY Qty: 20 RF: 0 azithromycin 250 mg tablet 250 mg PO DAILY Qty: 4 RF: 0 Continued rosuvastatin [Crestor] 5 mg tablet 5 mg PO QAM Qty: 90 RF: 3 Breo Ellipta 100-25 mcg/dose blister with device 1 inh INH QAM Qty: 60 RF: 5 calcipotriene [Dovonex] 0.005 % cream 1 applic topical BID Qty: 60 RF: 5 Incruse Ellipta 62.5 mcg/actuation blister with device 1 inh INH DAILY@1500 Qty: 30 RF: 5 albuterol sulfate 90 mcg/actuation HFA aerosol inhaler 2 puff inhalation Q6H PRN (Reason: Shortness Of Breath Or Wheezing) Qty: 18 RF: 3 Discharge Orders: Discharge Order (Routine); Ordered 05/24/21 Ordered By: Narinder Turner Admission Data Admit Date/Time: 05/23/21 21:36 Attending Provider: Narinder Turner Admit Provider: Liane Rodas Primary Care Provider: Layo Khan Other Providers: Kelley Ramirez Other Interventions: Discharge Summary Assessment (RN) Last Done: 05/24/21 16:27 Coding Level of Care Code 58682 OBS Care - Discharge Diagnoses COPD exacerbation J44.1 Hyperlipidemia E78.5
== END 2021-05-24 18:26 | disposition home or self-care (01) ==
LOC: ED 16:49 → 2N 16:49 → SUATTDRO 21:36 → 2N 22:56